=== PATIENT | female | born 1935 | race Caucasian/White ===

== ENCOUNTER → 2016-11-09 | Outpatient (CLI) | payer MEDICARE, OTHER ==
[2015-07-31 14:30] VITALS: BP 168/84
[~2016-11-09] MED LIST: DICL1TAB5 PO; DILT180C2 PO; GLIP5TAB10 PO; LISI40TA PO; METF-620 PO; OXYC1TAB7 PO
--- NOTE | 2016-11-09 14:20 | CARD ---
APPROVED REPORT EXAM: Two-dimensional and M-mode echocardiogram with Doppler and color Doppler. Other Information Quality : Average Rhythm : Atrial Fibrillation INDICATION Atrial Fibrillation 2D DIMENSIONS RVDd2.8 (2.9-3.5cm)Left Atrium(2D)3.8 (1.6-4.0cm) IVSd1.4 (0.7-1.1cm)Aortic Root(2D)2.9 (2.0-3.7cm) LVDd5.3 (3.9-5.9cm)LVOT Diameter2.0 (1.8-2.4cm) PWd1.4 (0.7-1.1cm)LVDs3.3 (2.5-4.0cm) FS (%) 37.6 %SV90.4 ml LVEF(%)64.2 (>50%) Aortic Valve AoV Peak Dom.173.6cm/sAoV VTI36.2cm AO Peak GR.12.0mmHgLVOT Peak Dom.101.1cm/s LVOT VTI 22.23cmAO Mean GR.7mmHg MILENA (VTI)1.80cm2 Mitral Valve MV DECEL [id number] E Mean Gr.2mmHg MV [id number] (PHT)4.00cm2 Pulmonary Valve PV Peak Fkwwxkjq81.8cm/sPV Peak Grad.4mmHg Tricuspid Valve TR P. [id number]/sRAP [id number] TR Peak Gr.[id number] LEFT VENTRICLE The left ventricle is normal size. There is mild concentric left ventricular hypertrophy. Left ventri dominique systolic function is normal. The Ejection Fraction is 60-65%. There is normal LV segmental wall m otion. Unable to assess diastolic function. There is no ventricular septal defect visualized. RIGHT VENTRICLE The right ventricle is normal size. The right ventricular systolic function is normal. ATRIA The left atrium size is normal. The right atrium size is normal. The interatrial septum is intact wit h no evidence for an atrial septal defect or patent foramen ovale as noted on 2-D or Doppler imaging. AORTIC VALVE The aortic valve is mildly sclerotic. The aortic valve is trileaflet. Doppler and Color Flow revealed trace aortic regurgitation. Calculated aortic valve area is 1.8 cm2 with maximum pressure gradient o f 12 mmHg and mean pressure gradient of 7 mmHg. MITRAL VALVE The mitral valve leaflets are thickened. There is no mitral valve stenosis. Doppler and Color Flow re vealed mild mitral regurgitation. TRICUSPID VALVE The tricuspid valve is normal in structure and function. Doppler and Color Flow revealed mild to mode rate tricuspid regurgitation. The PA pressure was estimated at 58 mmHg. There is no tricuspid valve s tenosis. PULMONIC VALVE The pulmonic valve is not well visualized. Doppler and Color Flow revealed mild pulmonic valvular reg urgitation. There is no pulmonic valvular stenosis. GREAT VESSELS The aortic root is normal in size. The IVC is dilated and collapses >50% with inspiration. PERICARDIAL EFFUSION There is no evidence of significant pericardial effusion. Critical Notification Critical Value: No <Conclusion> Left ventricle systolic function is normal. The Ejection Fraction is 60-65%. There is normal LV segmental wall motion. Trace aortic regurgitation. Doppler and Color Flow revealed mild mitral regurgitation. Mild to moderate tricuspid regurgitation. The PA pressure was estimated at 58 mmHg. There is no evidence of significant pericardial effusion.
== END | disposition home or self-care (01) ==
LOC: ECHO 13:16
PROVIDERS: ATTEND Internal Medicine Cardiovascular Disease
DX: I08.1 Rheumatic disorders of both mitral and tricuspid valves (principal); I48.2 Chronic atrial fibrillation
CPT/HCPCS: 93306

== ENCOUNTER 2019-03-05 14:31 | Inpatient (IN) | payer MEDICARE ==
[~2019-03-05] VITALS: Ht 165.1 cm; Wt 101.3 kg
[~2019-03-05 14:31] MED LIST changes: +ASPI-612 PO; +ATOR20TA58 PO; +GABA300C18 PO; +GLIM4TAB8 PO; +HYDR-2869 PO; +INSU100I11 SQ; +INSU100V8 SQ; +LISI-130 PO; -LISI40TA PO; -METF-620 PO; +METF10007 PO; +NYST60PO TP; +POLY17PO28 PO
[2019-03-05] MEDS ORDERED: ALBUTEROL SULFATE 2.5 MG/3 ML NEBU. NEB ONE (16:30)
--- NOTE | 2019-03-05 16:30 | PHYS DOC ---
Past Medical History Past Medical History: A-Fib, Arthritis, Diabetes-Type II, Hypertension, Stroke Past Surgical History: Appendectomy, Hysterectomy, Knee Replacement Additional Past Surgical Histo: bilat knees Alcohol Use: None Drug Use: None Adult General Chief Complaint Chief Complaint: SHORTNESS OF BREATH [facility] HPI Patient is a 83 year old female who presents with [cough and URI symptoms for the past week. Patient reports she had been discharged from the hospital recently, following hyperglycemia, had been put in Place for skilled care to get her blood sugars under control, and reports while she was there she she got a cold. States she has been out of the facility for the last week, and has been feeling ill for the same number of days. She hasn't contacted her primary care as an appointment tomorrow was told to start taking Mucinex, but reports he does not send be doing any good. She does reports she is having a productive cough, denies seeing any discoloration in her sputum. Denies any recent fever. Does reportedly have home health nurses in house to 3 times a week, and family was called and told to bring patient to the ER today because patient seemed to be wheezing for them. Patient reports her blood sugars have been under control, in the 130s since she has been on insulin.] Review of Systems Review of Systems Constitutional: Denies fever or chills [] Eyes: Denies change in visual acuity, redness, or eye pain [] HENT: Denies nasal congestion reports she does have a sore throat from coughing so much[] Respiratory: Reports cough, denies shortness of breath[] Cardiovascular: No additional information not addressed in HPI reports she has chronically had edema in her lower legs, however it is improved now compared to usual [] GI: Denies abdominal pain, nausea, vomiting, bloody stools or diarrhea [] : Denies dysuria or hematuria [] Musculoskeletal: Denies back pain or joint pain [] Integument: Denies rash or skin lesions [] Neurologic: Denies headache, focal weakness or sensory changes [] Endocrine: Denies polyuria or polydipsia [] All other systems were reviewed and found to be within normal limits, except as documented in this note. Current Medications Current Medications Current Medications Medications (Trade) Dose Ordered Sig/Mignon Start Time Stop Time Status Last Admin Dose Admin Albuterol Sulfate (Ventolin Neb Soln) 2.5 mg 1X ONCE 03/05/19 16:30 03/05/19 16:33 DC 03/05/19 17:20 2.5 MG Furosemide (Lasix) 40 mg 1X ONCE 03/05/19 18:15 03/05/19 18:20 DC Sodium Chloride 150 ml @ 50 mls/hr 1X ONCE 03/05/19 18:15 03/05/19 21:14 Allergies Allergies Allergies Coded Allergies Type Severity Reaction Last Updated Verified morphine Allergy Intermediate 07/31/15 Yes pear Allergy Intermediate 06/03/15 Yes codeine Adverse Reaction Intermediate dizzy 06/01/15 Yes Physical Exam Physical Exam Constitutional: Well developed, well nourished, no acute distress, non-toxic appearance. [] HENT: Normocephalic, atraumatic, bilateral external ears normal, oropharynx moist, no oral exudates, nose normal. Tonsils 0[] Eyes: PERRLA, EOMI, conjunctiva normal, no discharge. [] Neck: Normal range of motion, no tenderness, supple, no stridor. [] Cardiovascular:Heart rate regular rhythm, no murmur [] Lungs & Thorax: Bilateral breath sounds clear to auscultation no wheezing, no rales or rhonchi noted [] Abdomen: Bowel sounds normal, soft, no tenderness, no masses, no pulsatile masses. [] Skin: Warm, dry, no erythema, no rash. [] Back: No tenderness, no CVA tenderness. [] Extremities: No tenderness, no cyanosis, no clubbing, ROM intact, bilateral lower extremities with increased circumference, minimal pitting edema noted, ? 1+. [] Neurologic: Alert and oriented X 3, normal motor function, normal sensory function, no focal deficits noted. [] Psychologic: Affect normal, judgement normal, mood normal. [] Current Patient Data Vital Signs Vital Signs Date Time Temp Pulse Resp B/P (MAP) Pulse Ox O2 Delivery O2 Flow Rate FiO2 03/05/19 17:20 98 Room Air 03/05/19 15:30 97.6 77 16 150/78 (102) 97.6 Lab Values Laboratory Tests Test 03/05/19 16:05 03/05/19 16:20 03/05/19 16:45 03/05/19 17:34 Urine Collection Type Void Urine Color Yellow Urine Clarity Clear Urine pH 6.0 Urine Specific [place] 1.015 Urine Protein Negative mg/dL (NEG-TRACE) Urine Glucose (UA) 250 mg/dL (NEG) Urine Ketones (Stick) Negative mg/dL (NEG) Urine Blood Negative (NEG) Urine Nitrite Negative (NEG) Urine Bilirubin Negative (NEG) Urine Urobilinogen Dipstick 0.2 mg/dL (0.2 mg/dL) Urine Leukocyte Esterase Negative (NEG) Urine RBC Occ /HPF (0-2) Urine WBC Occ /HPF (0-4) Urine Squamous Epithelial Cells Few /LPF Urine Bacteria Few /HPF (0-FEW) White Blood Count 8.1 x10^3/uL (4.0-11.0) Red Blood Count 3.61 x10^6/uL (3.50-5.40) Hemoglobin 10.1 g/dL (12.0-15.5) L Hematocrit 30.0 % (36.0-47.0) L Mean Corpuscular Volume 83 fL (79-100) Mean Corpuscular Hemoglobin 28 pg (25-35) Mean Corpuscular Hemoglobin Concent 34 g/dL (31-37) Red Cell Distribution Width 14.7 % (11.5-14.5) H Platelet Count 183 x10^3/uL (140-400) Neutrophils (%) (Auto) 77 % (31-73) H Lymphocytes (%) (Auto) 14 % (24-48) L Monocytes (%) (Auto) 8 % (0-9) Eosinophils (%) (Auto) 0 % (0-3) Basophils (%) (Auto) 1 % (0-3) Neutrophils # (Auto) 6.2 x10^3/uL (1.8-7.7) Lymphocytes # (Auto) 1.1 x10^3/uL (1.0-4.8) Monocytes # (Auto) 0.6 x10^3/uL (0.0-1.1) Eosinophils # (Auto) 0.0 x10^3/uL (0.0-0.7) Basophils # (Auto) 0.1 x10^3/uL (0.0-0.2) Sodium Level 116 mmol/L (136-145) *L Potassium Level 3.6 mmol/L (3.5-5.1) Chloride Level 84 mmol/L (98-107) L Carbon Dioxide Level 25 mmol/L (21-32) Anion Gap 7 (6-14) Blood Urea Nitrogen 21 mg/dL (7-20) H Creatinine 0.7 mg/dL (0.6-1.0) Estimated GFR (Cockcroft-Gault) 79.5 BUN/Creatinine Ratio 30 (6-20) H Glucose Level 176 mg/dL (70-99) H Calcium Level 9.4 mg/dL (8.5-10.1) Total Bilirubin 0.4 mg/dL (0.2-1.0) Aspartate Amino Transferase (AST) 23 U/L (15-37) Alanine Aminotransferase (ALT) 13 U/L (14-59) L Alkaline Phosphatase 94 U/L (46-116) Troponin I Quantitative 0.039 ng/mL (0.000-0.055) Total Protein 7.3 g/dL (6.4-8.2) Albumin 3.1 g/dL (3.4-5.0) L Albumin/Globulin Ratio 0.7 (1.0-1.7) L Lactic Acid Level 1.2 mmol/L (0.4-2.0) Influenza Type A Antigen Negative (NEGATIVE) Influenza Type B Antigen Negative (NEGATIVE) Laboratory Tests 03/05/19 16:20 Laboratory Tests 03/05/19 16:20 EKG EKG [] Radiology/Procedures Radiology/Procedures FINDINGS: A frontal view of the chest is obtained. There is diffuse increased interstitial opacity. There is no consolidation, pleural effusion or pneumothorax. There is a prominent cardiac silhouette. There are calcified granulomas. IMPRESSION: Diffuse increased interstitial opacity due to interstitial infiltrate or chronic interstitial changes. There is no consolidation. Electronically signed by: Ronda Simpson MD (03/05/2019 4:59 PM) [id number] [] Course & Med Decision Making Course & Med Decision Making Pertinent Labs and Imaging studies reviewed. (See chart for details) [@1819 Reviewed results, with noted hyponatremia. Discussed admission with Dr العراقي. Agrees to inpatient admission @1805 Discussed with nephrology - Dr Carrillo - Recommends 150 ml 3% hypertonic saline and a one time dose of furosemide. ] Dragon Disclaimer Dragon Disclaimer This electronic medical record was generated, in whole or in part, using a voice recognition dictation system. Departure Departure Impression: Primary Impression: Hyponatremia Additional Impression: Fatigue Disposition: 09 ADMITTED INPATIENT Admitting Physician: TIFAFNY Condition: STABLE Referrals: BRANDON BAZZI MD (PCP) Problem Qualifiers Additional Impression: Fatigue Fatigue type: other Qualified Codes: R53.83 - Other fatigue CHUYITA SYLVESTER APRN Mar 05, 2019 16:30
[2019-03-05 16:37] LABS: BASO # 0.1 x10^3/uL (0.0-0.2); BASO % 1 % (0-3); EOS % 0 % (0-3); HEMOGLOBIN 10.1 g/dL (12.0-15.5); LYMPH # 1.1 x10^3/uL (1.0-4.8); LYMPH % 14 % (24-48); MEAN CORPUSCULAR HEMOGLOBIN 28 pg (25-35); MEAN CORPUSCULAR HGB CONC 34 g/dL (31-37); MEAN CORPUSCULAR VOLUME 83 fL (79-100); MONO # 0.6 x10^3/uL (0.0-1.1); MONO % 8 % (0-9); NEUT # 6.2 x10^3/uL (1.8-7.7); NEUT % 77 % (31-73); PLATELET COUNT 183 x10^3/uL (140-400); RED BLOOD COUNT 3.61 x10^6/uL (3.50-5.40); RED CELL DISTRIBUTION WIDTH 14.7 % (11.5-14.5); WHITE BLOOD COUNT 8.1 x10^3/uL (4.0-11.0)
[2019-03-05 16:41] LABS: BILIRUBIN,URINE NEGATIVE (NEG); CLARITY,URINE CLEAR; COLOR,URINE YELLOW; NITRITE,URINE NEGATIVE (NEG); PROTEIN,URINE NEGATIVE (NEG-TRACE); UROBILINOGEN,URINE 0.2 mg/dL (0.2 mg/dL)
[2019-03-05 16:46] LABS: RBC,URINE OCC /HPF (0-2)
[2019-03-05 16:47] LABS: BACTERIA,URINE FEW /HPF (0-FEW); SQUAMOUS EPITHELIAL CELL,UR FEW /LPF; WBC,URINE OCC /HPF (0-4)
[2019-03-05 17:01] LABS: ALBUMIN 3.1 g/dL (3.4-5.0); ALBUMIN/GLOBULIN RATIO 0.7 (1.0-1.7); CALCIUM 9.4 mg/dL (8.5-10.1); CREATININE 0.7 mg/dL (0.6-1.0); GFR 79.5; POTASSIUM 3.6 mmol/L (3.5-5.1); TOTAL BILIRUBIN 0.4 mg/dL (0.2-1.0); TOTAL PROTEIN 7.3 g/dL (6.4-8.2)
--- NOTE | 2019-03-05 17:02 | RAD ---
EXAM: Chest, single view. HISTORY: Shortness of air. Cough. COMPARISON: None. FINDINGS: A frontal view of the chest is obtained. There is diffuse increased interstitial opacity. There is no consolidation, pleural effusion or pneumothorax. There is a prominent cardiac silhouette. There are calcified granulomas. IMPRESSION: Diffuse increased interstitial opacity due to interstitial infiltrate or chronic interstitial changes. There is no consolidation. Electronically signed by: Ronda Simpson MD (03/05/2019 4:59 PM) [place] [id number]
[2019-03-05 18:13] LABS: INFLUENZA A PATIENT NEGATIVE (NEGATIVE); INFLUENZA B PATIENT NEGATIVE (NEGATIVE)
[2019-03-05] MEDS ORDERED: SODIUM CHLORIDE 3 % 150 ML IV ONE (18:15)
[2019-03-05] MEDS ORDERED: FUROSEMIDE 40 MG/4 ML VIAL. IVP ONE (18:15)
[2019-03-05 22:30] VITALS: BP 156/54
--- NOTE | 2019-03-05 22:30 | NUR ---
Pt was admitted to the unit from ER with c/o general weakness and hyponatremia. Pt is A/Ox4, on RA, afib on telemetry. Pt c/o persistent dry cough, recently d/c from [facility], at [facility] prior to that. Pt has no c/o pain, with with SBA and walker. Pt is a poor historian, h&p completed, call light within reach, bed in low/locked position, VSS, will continue to monitor for status changes.
[2019-03-06] VITALS (14 sets, daily range): BP systolic 125–198; BP diastolic 60–92
[2019-03-06] MEDS: guaiFENesin DM 200MG/20MG 10 ML SYRUP PO PRN ×4 (04:17→22:39)
--- NOTE | 2019-03-06 09:59 | PDOC1 ---
History and Physical Date of Admission Date of Admission DATE: 03/06/19 TIME: 09:57 Identification/Chief Complaint Chief Complaint seen in er with hyponatremia 83 year old female who presents with [cough and URI symptoms for the past week. Patient reports she had been discharged from the hospital recently, following hyperglycemia, had been put in Place for skilled care to get her blood sugars under control, and reports while she was there she she got a cold. has been out of the facility for the last week, and has been feeling ill for the same number of days. She hasn't contacted her primary care as an appointment was told to start taking Mucinex, admit sodium 116, now 121 Past Medical History Past Medical History Past Medical History Past Medical History Past Medical History: A-Fib, Arthritis, Diabetes-Type II, Hypertension, Stroke Past Surgical History: Appendectomy, Hysterectomy, Knee Replacement Additional Past Surgical Histo: bilat knees Alcohol Use: None Drug Use: None FHX OBESITY Past Medical History Cardiovascular: AFIB, HTN Pulmonary: No pertinent hx CENTRAL NERVOUS SYSTEM: CVA GI: No pertinent hx Heme/Onc: Cancer Hepatobiliary: No pertinent hx Psych: No pertinent hx Musculoskeletal: Osteoarthritis Rheumatologic: No pertinent hx Infectious disease: No pertinent hx Renal/: No pertinent hx Endocrine: Diabetes Past Surgical History Past Surgical History: Appendectomy, Cataract Removal, Total knee replacement, Hysterectomy Family History Family History: Hypertension Social History ALCOHOL: none Drugs: None Lives: with Family Cardiovascular: AFIB, HTN Pulmonary: No pertinent hx CENTRAL NERVOUS SYSTEM: CVA GI: No pertinent hx Heme/Onc: Cancer Hepatobiliary: No pertinent hx Psych: No pertinent hx Musculoskeletal: Osteoarthritis Rheumatologic: No pertinent hx Infectious disease: No pertinent hx Renal/: No pertinent hx Endocrine: Diabetes Past Surgical History Past Surgical History: Appendectomy, Cataract Removal, Total knee replacement, Hysterectomy Family History Family History: Hypertension Social History Smoke: No ALCOHOL: none Drugs: None Current Problem List Problem List Problems Medical Problems: (1) Fatigue Status: Acute (2) Hyponatremia Status: Acute Current Medications Current Medications Current Medications Albuterol Sulfate (Ventolin Neb Soln) 2.5 mg 1X ONCE NEB Last administered on 03/05/19at 17:20; Start 03/05/19 at 16:30; Stop 03/05/19 at 16:33; Status DC Sodium Chloride 150 ml @ 50 mls/hr 1X ONCE IV Last administered on 03/05/19at 19:18; Start 03/05/19 at 18:15; Stop 03/05/19 at 21:14; Status DC Furosemide (Lasix) 40 mg 1X ONCE IVP Last administered on 03/05/19at 18:39; Start 03/05/19 at 18:15; Stop 03/05/19 at 18:20; Status DC Guaifenesin (Robitussin Dm) 10 ml PRN Q4HRS PRN PO COUGH Last administered on 03/06/19at 04:17; Start 03/06/19 at 04:15 Active Scripts Active Polyethylene Glycol 3350 17 Gm Powd.pack 17 Gm PO DAILY 30 Days Nystop (Nystatin) 60 Gm Powder 1 Ayan TP BID 14 Days Humalog (Insulin Lispro) 100 Unit/1 Ml Insuln.pen 0 Units SQ TIDWMEALS 30 Days Lantus (Insulin Glargine,Hum.rec.anlog) 100 Unit/1 Ml Vial 6 Unit SQ QHS 30 Days Aspirin Ec (Aspirin) 81 Mg Tablet.dr 81 Mg PO DAILYWBKFT 30 Days Atorvastatin Calcium 20 Mg Tablet 20 Mg PO QHS 30 Days Oxycodone-Acetaminophen 5-325 (Oxycodone Hcl/Acetaminophen) 1 Each Tablet 1 Tab PO PRN Q6HRS PRN Reported Gabapentin (Gabapentin) 300 Mg Capsule 300 Mg PO HS PRN Take extra dose 2 hours after first dose if neuropathy persists Gabapentin (Gabapentin) 300 Mg Capsule 300 Mg PO HS Glimepiride 4 Mg Tablet 1 Tab PO BID Lisinopril 40 Mg Tablet 40 Mg PO DAILY Allergies Allergies: Coded Allergies: morphine (Verified Allergy, Intermediate, 07/31/15) pear (Verified Allergy, Intermediate, 06/03/15) codeine (Verified Adverse Reaction, Intermediate, dizzy, 06/01/15) MORPHINE OK ROS Review of System Review of Systems Review of Systems Constitutional: Denies fever or chills [] Eyes: Denies change in visual acuity, redness, or eye pain [] HENT: Denies nasal congestion reports she does have a sore throat from coughing so much[] Respiratory: Reports cough, denies shortness of breath[] Cardiovascular: No additional information not addressed in HPI reports she has chronically had edema in her lower legs, however it is improved now compared to usual [] GI: Denies abdominal pain, nausea, vomiting, bloody stools or diarrhea [] : Denies dysuria or hematuria [] Musculoskeletal: Denies back pain or joint pain [] Integument: Denies rash or skin lesions [] Neurologic: Denies headache, focal weakness or sensory changes [] Endocrine: Denies polyuria or polydipsia [] 14 pt systems were reviewed and found to be within normal limits, except as documented Physical Exam Physical Exam Physical Exam Physical Exam Constitutional: Well developed, well nourished, no acute distress, non-toxic appearance. [] HENT: Normocephalic, atraumatic, bilateral external ears normal, oropharynx moist, no oral exudates, nose normal. Tonsils 0[] Eyes: PERRLA, EOMI, conjunctiva normal, no discharge. [] Neck: Normal range of motion, no tenderness, supple, no stridor. [] Cardiovascular:Heart rate regular rhythm, no murmur [] Lungs & Thorax: Bilateral breath sounds clear to auscultation no wheezing, no rales or rhonchi noted [] Abdomen: Bowel sounds normal, soft, no tenderness, no masses, no pulsatile masses. [] Skin: Warm, dry, no erythema, no rash. [] Back: No tenderness, no CVA tenderness. [] Extremities: No tenderness, no cyanosis, no clubbing, ROM intact, bilateral lower extremities with increased circumference, minimal pitting edema noted, ? 1+. [] Neurologic: Alert and oriented X 3, normal motor function, normal sensory function, no focal deficits noted. [] Psychologic: Affect normal, judgement normal, mood normal. [] General: Alert, Oriented X3, Cooperative, No acute distress HEENT: Atraumatic Breasts: Not examined Abdomen: Normal bowel sounds, Soft Rectal Exam: not examined PELVIC: Examination not indicated Extremities: No clubbing, No cyanosis Neuro: Normal speech, Cranial nerves 3-12 NL Psych/Mental Status: Mental status NL, Mood NL Vitals Vitals Vital Signs Date Time Temp Pulse Resp B/P (MAP) Pulse Ox O2 Delivery O2 Flow Rate FiO2 03/06/19 07:43 Room Air 03/06/19 06:49 98.1 66 20 165/72 (103) 94 98.1 Labs Labs Laboratory Tests Test 1/7/20 16:05 03/05/19 16:20 03/05/19 16:45 03/05/19 17:34 Urine Collection Type Void Urine Color Yellow Urine Clarity Clear Urine pH 6.0 Urine Specific [place] 1.015 Urine Protein Negative mg/dL (NEG-TRACE) Urine Glucose (UA) 250 mg/dL (NEG) Urine Ketones (Stick) Negative mg/dL (NEG) Urine Blood Negative (NEG) Urine Nitrite Negative (NEG) Urine Bilirubin Negative (NEG) Urine Urobilinogen Dipstick 0.2 mg/dL (0.2 mg/dL) Urine Leukocyte Esterase Negative (NEG) Urine RBC Occ /HPF (0-2) Urine WBC Occ /HPF (0-4) Urine Squamous Epithelial Cells Few /LPF Urine Bacteria Few /HPF (0-FEW) White Blood Count 8.1 x10^3/uL (4.0-11.0) Red Blood Count 3.61 x10^6/uL (3.50-5.40) Hemoglobin 10.1 g/dL (12.0-15.5) Hematocrit 30.0 % (36.0-47.0) Mean Corpuscular Volume 83 fL (79-100) Mean Corpuscular Hemoglobin 28 pg (25-35) Mean Corpuscular Hemoglobin Concent 34 g/dL (31-37) Red Cell Distribution Width 14.7 % (11.5-14.5) Platelet Count 183 x10^3/uL (140-400) Neutrophils (%) (Auto) 77 % (31-73) Lymphocytes (%) (Auto) 14 % (24-48) Monocytes (%) (Auto) 8 % (0-9) Eosinophils (%) (Auto) 0 % (0-3) Basophils (%) (Auto) 1 % (0-3) Neutrophils # (Auto) 6.2 x10^3/uL (1.8-7.7) Lymphocytes # (Auto) 1.1 x10^3/uL (1.0-4.8) Monocytes # (Auto) 0.6 x10^3/uL (0.0-1.1) Eosinophils # (Auto) 0.0 x10^3/uL (0.0-0.7) Basophils # (Auto) 0.1 x10^3/uL (0.0-0.2) Sodium Level 116 mmol/L (136-145) Potassium Level 3.6 mmol/L (3.5-5.1) Chloride Level 84 mmol/L (98-107) Carbon Dioxide Level 25 mmol/L (21-32) Anion Gap 7 (6-14) Blood Urea Nitrogen 21 mg/dL (7-20) Creatinine 0.7 mg/dL (0.6-1.0) Estimated GFR (Cockcroft-Gault) 79.5 BUN/Creatinine Ratio 30 (6-20) Glucose Level 176 mg/dL (70-99) Calcium Level 9.4 mg/dL (8.5-10.1) Total Bilirubin 0.4 mg/dL (0.2-1.0) Aspartate Amino Transf (AST/SGOT) 23 U/L (15-37) Alanine Aminotransferase (ALT/SGPT) 13 U/L (14-59) Alkaline Phosphatase 94 U/L (46-116) Troponin I Quantitative 0.039 ng/mL (0.000-0.055) Total Protein 7.3 g/dL (6.4-8.2) Albumin 3.1 g/dL (3.4-5.0) Albumin/Globulin Ratio 0.7 (1.0-1.7) Lactic Acid Level 1.2 mmol/L (0.4-2.0) Influenza Type A Antigen Negative (NEGATIVE) Influenza Type B Antigen Negative (NEGATIVE) Test 03/06/19 06:52 Glucose (Fingerstick) 180 mg/dL (70-99) Laboratory Tests Test 03/05/19 16:05 03/05/19 16:20 03/05/19 16:45 03/05/19 17:34 Urine Collection Type Void Urine Color Yellow Urine Clarity Clear Urine pH 6.0 Urine Specific [place] 1.015 Urine Protein Negative mg/dL (NEG-TRACE) Urine Glucose (UA) 250 mg/dL (NEG) Urine Ketones (Stick) Negative mg/dL (NEG) Urine Blood Negative (NEG) Urine Nitrite Negative (NEG) Urine Bilirubin Negative (NEG) Urine Urobilinogen Dipstick 0.2 mg/dL (0.2 mg/dL) Urine Leukocyte Esterase Negative (NEG) Urine RBC Occ /HPF (0-2) Urine WBC Occ /HPF (0-4) Urine Squamous Epithelial Cells Few /LPF Urine Bacteria Few /HPF (0-FEW) White Blood Count 8.1 x10^3/uL (4.0-11.0) Red Blood Count 3.61 x10^6/uL (3.50-5.40) Hemoglobin 10.1 g/dL (12.0-15.5) Hematocrit 30.0 % (36.0-47.0) Mean Corpuscular Volume 83 fL (79-100) Mean Corpuscular Hemoglobin 28 pg (25-35) Mean Corpuscular Hemoglobin Concent 34 g/dL (31-37) Red Cell Distribution Width 14.7 % (11.5-14.5) Platelet Count 183 x10^3/uL (140-400) Neutrophils (%) (Auto) 77 % (31-73) Lymphocytes (%) (Auto) 14 % (24-48) Monocytes (%) (Auto) 8 % (0-9) Eosinophils (%) (Auto) 0 % (0-3) Basophils (%) (Auto) 1 % (0-3) Neutrophils # (Auto) 6.2 x10^3/uL (1.8-7.7) Lymphocytes # (Auto) 1.1 x10^3/uL (1.0-4.8) Monocytes # (Auto) 0.6 x10^3/uL (0.0-1.1) Eosinophils # (Auto) 0.0 x10^3/uL (0.0-0.7) Basophils # (Auto) 0.1 x10^3/uL (0.0-0.2) Sodium Level 116 mmol/L (136-145) Potassium Level 3.6 mmol/L (3.5-5.1) Chloride Level 84 mmol/L (98-107) Carbon Dioxide Level 25 mmol/L (21-32) Anion Gap 7 (6-14) Blood Urea Nitrogen 21 mg/dL (7-20) Creatinine 0.7 mg/dL (0.6-1.0) Estimated GFR (Cockcroft-Gault) 79.5 BUN/Creatinine Ratio 30 (6-20) Glucose Level 176 mg/dL (70-99) Calcium Level 9.4 mg/dL (8.5-10.1) Total Bilirubin 0.4 mg/dL (0.2-1.0) Aspartate Amino Transf (AST/SGOT) 23 U/L (15-37) Alanine Aminotransferase (ALT/SGPT) 13 U/L (14-59) Alkaline Phosphatase 94 U/L (46-116) Troponin I Quantitative 0.039 ng/mL (0.000-0.055) Total Protein 7.3 g/dL (6.4-8.2) Albumin 3.1 g/dL (3.4-5.0) Albumin/Globulin Ratio 0.7 (1.0-1.7) Lactic Acid Level 1.2 mmol/L (0.4-2.0) Influenza Type A Antigen Negative (NEGATIVE) Influenza Type B Antigen Negative (NEGATIVE) Test 03/06/19 06:52 Glucose (Fingerstick) 180 mg/dL (70-99) Images Images RIGHT VENTRICLE The right ventricle is normal size. The right ventricular systolic function is normal. ATRIA The left atrium size is normal. The right atrium size is normal. The interatrial septum is intact with no evidence for an atrial septal defect or patent foramen ovale as noted on 2-D or Doppler imaging. AORTIC VALVE The aortic valve is mildly thickened but opens well. Doppler and Color Flow revealed mild aortic regurgitation. There is no significant aortic valvular stenosis. MITRAL VALVE The mitral valve is calcified but opens well. Mitral annular calcification is mild. There is no evidence of mitral valve prolapse. There is no mitral valve stenosis. Doppler and Color-flow revealed mild mitral regurgitation. TRICUSPID VALVE The tricuspid valve is normal in structure and function. Doppler and Color Flow revealed mild tricuspid regurgitation. There is moderate pulmonary hypertension. The PA pressure was estimated at 52 mmHg. There is no tricuspid valve stenosis. PULMONIC VALVE The pulmonic valve is not well visualized. Doppler and Color Flow revealed mild pulmonic valvular regurgitation. There is no pulmonic valvular stenosis. GREAT VESSELS The aortic root is normal in size. The ascending aorta is moderately dilated at 4.0 cm. The IVC is dilated and collapses >50% with inspiration. PERICARDIAL EFFUSION There is no evidence of significant pericardial effusion. Critical Notification Critical Value: No <Conclusion> The left ventricular systolic function is normal. The Ejection Fraction is 55-60%. There is normal LV segmental wall motion. Mild aortic regurgitation. Mild mitral regurgitation. Mild tricuspid regurgitation. The PA pressure was estimated at 52 mmHg. There is no evidence of significant pericardial effusion. Signed by : Jean Pierre Barry, Electronically Approved : 02/07/2019 11:02:43 EXAM: Chest, single view. HISTORY: Shortness of air. Cough. COMPARISON: None. FINDINGS: A frontal view of the chest is obtained. There is diffuse increased interstitial opacity. There is no consolidation, pleural effusion or pneumothorax. There is a prominent cardiac silhouette. There are calcified granulomas. IMPRESSION: Diffuse increased interstitial opacity due to interstitial infiltrate or chronic interstitial changes. There is no consolidation. Electronically signed by: Ronda Simpson MD (03/05/2019 4:59 PM) [place] [id number] DICTATED and SIGNED BY: RONDA SIMPSON MD DATE: 03/05/19 7323 VTE Prophylaxis Ordered VTE Prophylaxis Devices: No VTE Pharmacological Prophylaxi: Contraindicated Assessment/Plan Assessment/Plan Impression: Hyponatremia, severe, hyponatremia has been reported with gabapentin therapy diff dx SIAHD, Hypervolemia, chf, hepatic disease, renal disease morbid obesity cough ? 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 2016 a-fib HX DIABETES HYPERTENSION Mild to moderate tricuspid regurgitation. recent echo , PA pressure was estimated at 52 mmHg. c/w mod-severe pulmonary hypertension hypokalemia ADMITTED icu bed hypertonic NS Nephrology consult hold gabapentin and narcotics serum and urine osmolality frequent lytes hold lisinopril cardiology consult replete k po k at 1700 03/06 34 min cc time KARYN NORWOOD MD Mar 06, 2019 09:59
[2019-03-06] MEDS: NYSTATIN TOPICAL POWDER 15GM BOTTLE. TP SCH ×2 (10:00→23:30)
[2019-03-06] MEDS ORDERED: LISINOPRIL 20 MG TABLET PO SCH (10:00)
[2019-03-06 10:02] LABS: BASO % 1 % (0-3); EOS % 0 % (0-3); HEMATOCRIT 27.6 % (36.0-47.0); HEMOGLOBIN 9.2 g/dL (12.0-15.5); LYMPH # 1.1 x10^3/uL (1.0-4.8); LYMPH % 20 % (24-48); MEAN CORPUSCULAR HEMOGLOBIN 28 pg (25-35); MEAN CORPUSCULAR HGB CONC 33 g/dL (31-37); MEAN CORPUSCULAR VOLUME 83 fL (79-100); MONO # 0.7 x10^3/uL (0.0-1.1); MONO % 12 % (0-9); NEUT # 3.9 x10^3/uL (1.8-7.7); NEUT % 68 % (31-73); PLATELET COUNT 176 x10^3/uL (140-400); RED BLOOD COUNT 3.34 x10^6/uL (3.50-5.40); RED CELL DISTRIBUTION WIDTH 14.4 % (11.5-14.5); WHITE BLOOD COUNT 5.8 x10^3/uL (4.0-11.0)
[2019-03-06] MEDS ORDERED: ASPIRIN ENTERIC COATED 81 MG TABLET.DR. PO ONE (10:14)
[2019-03-06 10:16] LABS: CALCIUM 8.8 mg/dL (8.5-10.1); CREATININE 0.6 mg/dL (0.6-1.0)
[2019-03-06] MEDS: POLYETHYLENE GLYCOL 3350 17 GM PACKET. PO SCH (10:16)
[2019-03-06] MEDS: ASPIRIN ENTERIC COATED 81 MG TABLET.DR. PO SCH (10:16)
[2019-03-06 10:27] LABS: POTASSIUM 2.9 mmol/L (3.5-5.1)
[2019-03-06] MEDS ORDERED: POTASSIUM CHLORIDE 20 MEQ TABLET.ER. PO ONE ×2 (10:45→14:00)
[2019-03-06] MEDS ORDERED: SODIUM CHLORIDE 3 % 250 ML IV ONE (11:45)
[2019-03-06] MEDS ORDERED: FUROSEMIDE 40 MG/4 ML VIAL. IVP ONE (11:45)
[2019-03-06] MEDS: INSULIN LISPRO 300 UNITS/3 ML VIAL. SQ SCH ×2 (12:00→17:00)
--- NOTE | 2019-03-06 13:35 | NUR ---
Daughter lisa was called to inform her that the patient has transferred to the ICU. All questions were answered.
--- NOTE | 2019-03-06 13:50 | PDOC2 ---
CONSULT Date of Consult Date of Consult DATE: 03/06/19 TIME: 13:44 Reason for Consult Reason for Consult: LOW NA Referring Physician Referring Physician: CUCO Identification/Chief Complaint Chief Complaint CONFUSION AND COUGH Source Source: Chart review History of Present Illness Reason for Visit: THIS IS AN 83 YR OLD WITH COUGH AND URI SYMPTOMS FOR ABOUT A WEEK. SHE IS A VERY POOR HISTORIAN AND PROB HAS UNDERLYING DEMENTIA. HAS SOME CONFUSION. HAS NOTABLE LE EDEMA. LABS NOTABLE FOR HYPOKALEMIA AND VERY LOW NA OF 116. NOT ON ANY DIURETICS BUT ON AN JOSE RAUL-I AT HOME. UA IS WNL Past Medical History Cardiovascular: AFIB, HTN Pulmonary: No pertinent hx CENTRAL NERVOUS SYSTEM: CVA GI: No pertinent hx Heme/Onc: Cancer Hepatobiliary: No pertinent hx Psych: No pertinent hx Musculoskeletal: Osteoarthritis Rheumatologic: No pertinent hx Infectious disease: No pertinent hx Renal/: No pertinent hx Endocrine: Diabetes Past Surgical History Past Surgical History: Appendectomy, Cataract Removal, Total knee replacement, Hysterectomy Family History Family History: Hypertension Social History ALCOHOL: none Drugs: None Lives: with Family Current Problem List Problem List Problems Medical Problems: (1) Fatigue Status: Acute (2) Hyponatremia Status: Acute Current Medications Current Medications Current Medications Albuterol Sulfate (Ventolin Neb Soln) 2.5 mg 1X ONCE NEB Last administered on 03/05/19at 17:20; Start 03/05/19 at 16:30; Stop 03/05/19 at 16:33; Status DC Sodium Chloride 150 ml @ 50 mls/hr 1X ONCE IV Last administered on 03/05/19at 19:18; Start 03/05/19 at 18:15; Stop 03/05/19 at 21:14; Status DC Furosemide (Lasix) 40 mg 1X ONCE IVP Last administered on 03/05/19at 18:39; Start 03/05/19 at 18:15; Stop 03/05/19 at 18:20; Status DC Guaifenesin (Robitussin Dm) 10 ml PRN Q4HRS PRN PO COUGH Last administered on 03/06/19at 10:16; Start 03/06/19 at 04:15 Aspirin (Ecotrin) 81 mg DAILYWBKFT PO Last administered on 03/06/19at 10:16; Start 03/06/19 at 12:00 Atorvastatin Calcium (Lipitor) 20 mg QHS PO ; Start 03/06/19 at 21:00 Insulin Glargine (Lantus Syringe) 6 unit QHS SQ ; Start 03/06/19 at 21:00 Insulin Human Lispro (HumaLOG) TIDWMEALS SQ ; Start 03/06/19 at 12:00 Lisinopril (Prinivil) 40 mg DAILY PO Last administered on 03/06/19at 10:16; Start 03/06/19 at 10:00 Nystatin (Nystop) 1 ayan BID TP ; Start 03/06/19 at 10:00 Polyethylene Glycol (miraLAX PACKET) 17 gm DAILY PO Last administered on 03/06/19at 10:16; Start 03/06/19 at 11:00 Aspirin (Ecotrin) 81 mg STK-MED ONCE PO ; Start 03/06/19 at 10:14; Stop 03/06/19 at 10:15; Status DC Potassium Chloride (Klor-Con) 40 meq 1X ONCE PO Last administered on 03/06/19at 10:46; Start 03/06/19 at 10:45; Stop 03/06/19 at 10:46; Status DC Potassium Chloride (Klor-Con) 10 meq 1X ONCE PO ; Start 03/06/19 at 14:00; Stop 03/06/19 at 11:42; Status DC Hydralazine HCl (Apresoline Inj) 10 mg PRN Q4HRS PRN IVP ELEVATED BP, SEE COMMENTS; Start 03/06/19 at 10:45 Sodium Chloride 250 ml @ 25 mls/hr 1X ONCE IV Last administered on 03/06/19at 13:27; Start 03/06/19 at 11:45; Stop 03/06/19 at 21:44 Furosemide (Lasix) 40 mg 1X ONCE IVP Last administered on 03/06/19at 12:06; Start 03/06/19 at 11:45; Stop 03/06/19 at 11:46; Status DC Potassium Chloride (Klor-Con) 40 meq 1X ONCE PO ; Start 03/06/19 at 14:00; Stop 03/06/19 at 14:01 Active Scripts Active Polyethylene Glycol 3350 17 Gm Powd.pack 17 Gm PO DAILY 30 Days Nystop (Nystatin) 60 Gm Powder 1 Ayan TP BID 14 Days Humalog (Insulin Lispro) 100 Unit/1 Ml Insuln.pen 0 Units SQ TIDWMEALS 30 Days Lantus (Insulin Glargine,Hum.rec.anlog) 100 Unit/1 Ml Vial 6 Unit SQ QHS 30 Days Aspirin Ec (Aspirin) 81 Mg Tablet.dr 81 Mg PO DAILYWBKFT 30 Days Atorvastatin Calcium 20 Mg Tablet 20 Mg PO QHS 30 Days Oxycodone-Acetaminophen 5-325 (Oxycodone Hcl/Acetaminophen) 1 Each Tablet 1 Tab PO PRN Q6HRS PRN Reported Gabapentin (Gabapentin) 300 Mg Capsule 300 Mg PO HS PRN Take extra dose 2 hours after first dose if neuropathy persists Gabapentin (Gabapentin) 300 Mg Capsule 300 Mg PO HS Glimepiride 4 Mg Tablet 1 Tab PO BID Lisinopril 40 Mg Tablet 40 Mg PO DAILY Allergies Allergies: Coded Allergies: morphine (Verified Allergy, Intermediate, 07/31/15) pear (Verified Allergy, Intermediate, 06/03/15) codeine (Verified Adverse Reaction, Intermediate, dizzy, 06/01/15) MORPHINE OK ROS Review of System IN HPI, OTHERWISE NOT VERY RELIABLE Physical Exam General: Alert, Cooperative, No acute distress HEENT: Atraumatic, PERRLA, EOMI Lungs: Other (DECREASED AT BASES) Heart: Regular rate Abdomen: Normal bowel sounds, Soft, No tenderness Extremities: No clubbing Skin: No breakdown Neuro: Normal speech Psych/Mental Status: Mood NL MUSCULOSKELETAL: No deformity, Other (2-3+ LE EDEMA) Vitals VITALS Vital Signs Date Time Temp Pulse Resp B/P (MAP) Pulse Ox O2 Delivery O2 Flow Rate FiO2 03/06/19 10:16 89 198/81 03/06/19 10:10 98.2 20 93 Room Air 98.2 Labs Labs Laboratory Tests Test 03/05/19 16:05 03/05/19 16:20 03/05/19 16:45 03/05/19 17:34 Urine Collection Type Void Urine Color Yellow Urine Clarity Clear Urine pH 6.0 Urine Specific [place] 1.015 Urine Protein Negative mg/dL (NEG-TRACE) Urine Glucose (UA) 250 mg/dL (NEG) Urine Ketones (Stick) Negative mg/dL (NEG) Urine Blood Negative (NEG) Urine Nitrite Negative (NEG) Urine Bilirubin Negative (NEG) Urine Urobilinogen Dipstick 0.2 mg/dL (0.2 mg/dL) Urine Leukocyte Esterase Negative (NEG) Urine RBC Occ /HPF (0-2) Urine WBC Occ /HPF (0-4) Urine Squamous Epithelial Cells Few /LPF Urine Bacteria Few /HPF (0-FEW) White Blood Count 8.1 x10^3/uL (4.0-11.0) Red Blood Count 3.61 x10^6/uL (3.50-5.40) Hemoglobin 10.1 g/dL (12.0-15.5) Hematocrit 30.0 % (36.0-47.0) Mean Corpuscular Volume 83 fL (79-100) Mean Corpuscular Hemoglobin 28 pg (25-35) Mean Corpuscular Hemoglobin Concent 34 g/dL (31-37) Red Cell Distribution Width 14.7 % (11.5-14.5) Platelet Count 183 x10^3/uL (140-400) Neutrophils (%) (Auto) 77 % (31-73) Lymphocytes (%) (Auto) 14 % (24-48) Monocytes (%) (Auto) 8 % (0-9) Eosinophils (%) (Auto) 0 % (0-3) Basophils (%) (Auto) 1 % (0-3) Neutrophils # (Auto) 6.2 x10^3/uL (1.8-7.7) Lymphocytes # (Auto) 1.1 x10^3/uL (1.0-4.8) Monocytes # (Auto) 0.6 x10^3/uL (0.0-1.1) Eosinophils # (Auto) 0.0 x10^3/uL (0.0-0.7) Basophils # (Auto) 0.1 x10^3/uL (0.0-0.2) Sodium Level 116 mmol/L (136-145) Potassium Level 3.6 mmol/L (3.5-5.1) Chloride Level 84 mmol/L (98-107) Carbon Dioxide Level 25 mmol/L (21-32) Anion Gap 7 (6-14) Blood Urea Nitrogen 21 mg/dL (7-20) Creatinine 0.7 mg/dL (0.6-1.0) Estimated GFR (Cockcroft-Gault) 79.5 BUN/Creatinine Ratio 30 (6-20) Glucose Level 176 mg/dL (70-99) Calcium Level 9.4 mg/dL (8.5-10.1) Total Bilirubin 0.4 mg/dL (0.2-1.0) Aspartate Amino Transf (AST/SGOT) 23 U/L (15-37) Alanine Aminotransferase (ALT/SGPT) 13 U/L (14-59) Alkaline Phosphatase 94 U/L (46-116) Troponin I Quantitative 0.039 ng/mL (0.000-0.055) Total Protein 7.3 g/dL (6.4-8.2) Albumin 3.1 g/dL (3.4-5.0) Albumin/Globulin Ratio 0.7 (1.0-1.7) Lactic Acid Level 1.2 mmol/L (0.4-2.0) Influenza Type A Antigen Negative (NEGATIVE) Influenza Type B Antigen Negative (NEGATIVE) Test 03/06/19 06:52 03/06/19 09:45 03/06/19 11:37 Glucose (Fingerstick) 180 mg/dL (70-99) 220 mg/dL (70-99) White Blood Count 5.8 x10^3/uL (4.0-11.0) Red Blood Count 3.34 x10^6/uL (3.50-5.40) Hemoglobin 9.2 g/dL (12.0-15.5) Hematocrit 27.6 % (36.0-47.0) Mean Corpuscular Volume 83 fL (79-100) Mean Corpuscular Hemoglobin 28 pg (25-35) Mean Corpuscular Hemoglobin Concent 33 g/dL (31-37) Red Cell Distribution Width 14.4 % (11.5-14.5) Platelet Count 176 x10^3/uL (140-400) Neutrophils (%) (Auto) 68 % (31-73) Lymphocytes (%) (Auto) 20 % (24-48) Monocytes (%) (Auto) 12 % (0-9) Eosinophils (%) (Auto) 0 % (0-3) Basophils (%) (Auto) 1 % (0-3) Neutrophils # (Auto) 3.9 x10^3/uL (1.8-7.7) Lymphocytes # (Auto) 1.1 x10^3/uL (1.0-4.8) Monocytes # (Auto) 0.7 x10^3/uL (0.0-1.1) Eosinophils # (Auto) 0.0 x10^3/uL (0.0-0.7) Basophils # (Auto) 0.0 x10^3/uL (0.0-0.2) Sodium Level 121 mmol/L (136-145) Potassium Level 2.9 mmol/L (3.5-5.1) Chloride Level 85 mmol/L (98-107) Carbon Dioxide Level 28 mmol/L (21-32) Anion Gap 8 (6-14) Blood Urea Nitrogen 18 mg/dL (7-20) Creatinine 0.6 mg/dL (0.6-1.0) Estimated GFR (Cockcroft-Gault) 95.0 Glucose Level 199 mg/dL (70-99) Calcium Level 8.8 mg/dL (8.5-10.1) Laboratory Tests Test 03/05/19 16:05 03/05/19 16:20 03/05/19 16:45 03/05/19 17:34 Urine Collection Type Void Urine Color Yellow Urine Clarity Clear Urine pH 6.0 Urine Specific [place] 1.015 Urine Protein Negative mg/dL (NEG-TRACE) Urine Glucose (UA) 250 mg/dL (NEG) Urine Ketones (Stick) Negative mg/dL (NEG) Urine Blood Negative (NEG) Urine Nitrite Negative (NEG) Urine Bilirubin Negative (NEG) Urine Urobilinogen Dipstick 0.2 mg/dL (0.2 mg/dL) Urine Leukocyte Esterase Negative (NEG) Urine RBC Occ /HPF (0-2) Urine WBC Occ /HPF (0-4) Urine Squamous Epithelial Cells Few /LPF Urine Bacteria Few /HPF (0-FEW) White Blood Count 8.1 x10^3/uL (4.0-11.0) Red Blood Count 3.61 x10^6/uL (3.50-5.40) Hemoglobin 10.1 g/dL (12.0-15.5) Hematocrit 30.0 % (36.0-47.0) Mean Corpuscular Volume 83 fL (79-100) Mean Corpuscular Hemoglobin 28 pg (25-35) Mean Corpuscular Hemoglobin Concent 34 g/dL (31-37) Red Cell Distribution Width 14.7 % (11.5-14.5) Platelet Count 183 x10^3/uL (140-400) Neutrophils (%) (Auto) 77 % (31-73) Lymphocytes (%) (Auto) 14 % (24-48) Monocytes (%) (Auto) 8 % (0-9) Eosinophils (%) (Auto) 0 % (0-3) Basophils (%) (Auto) 1 % (0-3) Neutrophils # (Auto) 6.2 x10^3/uL (1.8-7.7) Lymphocytes # (Auto) 1.1 x10^3/uL (1.0-4.8) Monocytes # (Auto) 0.6 x10^3/uL (0.0-1.1) Eosinophils # (Auto) 0.0 x10^3/uL (0.0-0.7) Basophils # (Auto) 0.1 x10^3/uL (0.0-0.2) Sodium Level 116 mmol/L (136-145) Potassium Level 3.6 mmol/L (3.5-5.1) Chloride Level 84 mmol/L (98-107) Carbon Dioxide Level 25 mmol/L (21-32) Anion Gap 7 (6-14) Blood Urea Nitrogen 21 mg/dL (7-20) Creatinine 0.7 mg/dL (0.6-1.0) Estimated GFR (Cockcroft-Gault) 79.5 BUN/Creatinine Ratio 30 (6-20) Glucose Level 176 mg/dL (70-99) Calcium Level 9.4 mg/dL (8.5-10.1) Total Bilirubin 0.4 mg/dL (0.2-1.0) Aspartate Amino Transf (AST/SGOT) 23 U/L (15-37) Alanine Aminotransferase (ALT/SGPT) 13 U/L (14-59) Alkaline Phosphatase 94 U/L (46-116) Troponin I Quantitative 0.039 ng/mL (0.000-0.055) Total Protein 7.3 g/dL (6.4-8.2) Albumin 3.1 g/dL (3.4-5.0) Albumin/Globulin Ratio 0.7 (1.0-1.7) Lactic Acid Level 1.2 mmol/L (0.4-2.0) Influenza Type A Antigen Negative (NEGATIVE) Influenza Type B Antigen Negative (NEGATIVE) Test 03/06/19 06:52 03/06/19 09:45 03/06/19 11:37 Glucose (Fingerstick) 180 mg/dL (70-99) 220 mg/dL (70-99) White Blood Count 5.8 x10^3/uL (4.0-11.0) Red Blood Count 3.34 x10^6/uL (3.50-5.40) Hemoglobin 9.2 g/dL (12.0-15.5) Hematocrit 27.6 % (36.0-47.0) Mean Corpuscular Volume 83 fL (79-100) Mean Corpuscular Hemoglobin 28 pg (25-35) Mean Corpuscular Hemoglobin Concent 33 g/dL (31-37) Red Cell Distribution Width 14.4 % (11.5-14.5) Platelet Count 176 x10^3/uL (140-400) Neutrophils (%) (Auto) 68 % (31-73) Lymphocytes (%) (Auto) 20 % (24-48) Monocytes (%) (Auto) 12 % (0-9) Eosinophils (%) (Auto) 0 % (0-3) Basophils (%) (Auto) 1 % (0-3) Neutrophils # (Auto) 3.9 x10^3/uL (1.8-7.7) Lymphocytes # (Auto) 1.1 x10^3/uL (1.0-4.8) Monocytes # (Auto) 0.7 x10^3/uL (0.0-1.1) Eosinophils # (Auto) 0.0 x10^3/uL (0.0-0.7) Basophils # (Auto) 0.0 x10^3/uL (0.0-0.2) Sodium Level 121 mmol/L (136-145) Potassium Level 2.9 mmol/L (3.5-5.1) Chloride Level 85 mmol/L (98-107) Carbon Dioxide Level 28 mmol/L (21-32) Anion Gap 8 (6-14) Blood Urea Nitrogen 18 mg/dL (7-20) Creatinine 0.6 mg/dL (0.6-1.0) Estimated GFR (Cockcroft-Gault) 95.0 Glucose Level 199 mg/dL (70-99) Calcium Level 8.8 mg/dL (8.5-10.1) Assessment/Plan Assessment/Plan IMP 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
--- NOTE | 2019-03-06 13:58 | NUR ---
SS following for discharge planning. SS reviewed pt chart. Pt is from home with spouse and is currently on room air. SS will continue to follow for discharge planning.
[2019-03-06] MEDS ORDERED: POTASSIUM CHLORIDE 10 MEQ TABLET.ER. PO ONE (14:00)
[2019-03-06] MEDS: FUROSEMIDE 40 MG/4 ML VIAL. IVP SCH (14:51)
[2019-03-06] MEDS ORDERED: PROCHLORPERAZINE 10 MG/2 ML VIAL. IV PRN (15:15)
[2019-03-06] MEDS ORDERED: 0.9 % SODIUM CHLORIDE 10 ML DISP.SYRIN. IV PRN (15:15)
[2019-03-06] MEDS ORDERED: ONDANSETRON PF 4 MG/2 ML VIAL. IV PRN (15:15)
[2019-03-06] MEDS: HEPARIN for SUB-Q USE 5,000 UNIT/ML VIAL. SQ SCH ×2 (15:56→22:07)
[2019-03-06 17:09] LABS: CREATININE 0.7 mg/dL (0.6-1.0); GFR 79.5; POTASSIUM 3.5 mmol/L (3.5-5.1)
[2019-03-06 18:37] LABS: HEMATOCRIT 29.5 % (36.0-47.0); RED BLOOD COUNT 3.56 x10^6/uL (3.50-5.40); RED CELL DISTRIBUTION WIDTH 14.5 % (11.5-14.5); WHITE BLOOD COUNT 6.4 x10^3/uL (4.0-11.0)
[2019-03-06] MEDS ORDERED: INSULIN GLARGINE SYRINGE. SQ SCH (21:00)
[2019-03-06] MEDS: DOCUSATE SODIUM 100 MG CAPSULE. PO SCH (21:07)
[2019-03-06] MEDS: ATORVASTATIN CALCIUM 20 MG TABLET PO SCH (21:07)
[2019-03-06] MEDS: FAMOTIDINE 20 MG/2 ML VIAL IVP SCH (21:07)
[2019-03-07] VITALS (24 sets, daily range): BP systolic 118–178; BP diastolic 53–89
[2019-03-07 03:40] LABS: ALBUMIN 2.6 g/dL (3.4-5.0); ALBUMIN/GLOBULIN RATIO 0.7 (1.0-1.7); CALCIUM 8.7 mg/dL (8.5-10.1); CREATININE 0.7 mg/dL (0.6-1.0); GFR 79.5; MAGNESIUM 1.5 mg/dL (1.8-2.4); POTASSIUM 3.1 mmol/L (3.5-5.1); TOTAL BILIRUBIN 0.3 mg/dL (0.2-1.0); TOTAL PROTEIN 6.5 g/dL (6.4-8.2)
[2019-03-07] MEDS: hydrALAZINE 20 MG/ML VIAL. IVP PRN (04:23)
[2019-03-07] MEDS: HEPARIN for SUB-Q USE 5,000 UNIT/ML VIAL. SQ SCH ×3 (06:15→21:08)
--- NOTE | 2019-03-07 07:10 | EKG ---
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
[2019-03-07] MEDS ORDERED: MAGNESIUM SULFATE 2GM 50 ML IV ONE (08:15)
[2019-03-07] MEDS ORDERED: POTASSIUM CHLORIDE 20 MEQ TABLET.ER. PO ONE ×2 (08:15→12:45)
--- NOTE | 2019-03-07 08:54 | PDOC ---
PROGRESS NOTES History of Present Illness History of Present Illness VTE Prophylaxis Ordered VTE Prophylaxis Devices: No VTE Pharmacological Prophylaxi: Contraindicated Assessment/Plan Assessment/Plan Impression: Hyponatremia, severe, hyponatremia has been reported with gabapentin therapy diff dx SIAHD, Hypervolemia, chf, hepatic disease, renal disease morbid obesity cough ? 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 2016 a-fib HX DIABETES HYPERTENSION Mild to moderate tricuspid regurgitation. recent echo , PA pressure was estimated at 52 mmHg. c/w mod-severe pulmonary hypertension hypokalemia METABOLIC ENCEPHALOPATHY ADMITTED icu bed hypertonic NS Nephrology FOLLOWING hold gabapentin and narcotics serum and urine osmolality frequent lytes hold lisinopril cardiology consult replete k po AGAIN k at 1700 03/06=3.5 MCOT could be arrange to worn in [facility] AM, PM CORTISOL 32 min cc time Vitals Vitals Vital Signs Date Time Temp Pulse Resp B/P (MAP) Pulse Ox O2 Delivery O2 Flow Rate FiO2 03/07/19 07:00 58 24 151/55 (87) 97 Room Air 03/07/19 04:00 97.6 97.6 Physical Exam General: Alert, Oriented X3 (MILD CONFUSION), Cooperative, No acute distress Heart: Regular rate, Normal S1 Lungs: Clear, Other Abdomen: Normal bowel sounds, Soft, No tenderness, No hepatosplenomegaly Extremities: No clubbing, No cyanosis Skin: No breakdown Labs LABS EXAM: Chest, single view. HISTORY: Shortness of air. Cough. COMPARISON: None. FINDINGS: A frontal view of the chest is obtained. There is diffuse increased interstitial opacity. There is no consolidation, pleural effusion or pneumothorax. There is a prominent cardiac silhouette. There are calcified granulomas. IMPRESSION: Diffuse increased interstitial opacity due to interstitial infiltrate or chronic interstitial changes. There is no consolidation. Electronically signed by: Ronda Simpson MD (03/05/2019 4:59 PM) [facility] DICTATED and SIGNED BY: RONDA SIMPSON MD DATE: 03/05/19 1659 Laboratory Tests Test 03/06/19 09:45 03/06/19 11:20 03/06/19 11:37 03/06/19 16:45 White Blood Count 5.8 x10^3/uL (4.0-11.0) Red Blood Count 3.34 x10^6/uL (3.50-5.40) Hemoglobin 9.2 g/dL (12.0-15.5) Hematocrit 27.6 % (36.0-47.0) Mean Corpuscular Volume 83 fL (79-100) Mean Corpuscular Hemoglobin 28 pg (25-35) Mean Corpuscular Hemoglobin Concent 33 g/dL (31-37) Red Cell Distribution Width 14.4 % (11.5-14.5) Platelet Count 176 x10^3/uL (140-400) Neutrophils (%) (Auto) 68 % (31-73) Lymphocytes (%) (Auto) 20 % (24-48) Monocytes (%) (Auto) 12 % (0-9) Eosinophils (%) (Auto) 0 % (0-3) Basophils (%) (Auto) 1 % (0-3) Neutrophils # (Auto) 3.9 x10^3/uL (1.8-7.7) Lymphocytes # (Auto) 1.1 x10^3/uL (1.0-4.8) Monocytes # (Auto) 0.7 x10^3/uL (0.0-1.1) Eosinophils # (Auto) 0.0 x10^3/uL (0.0-0.7) Basophils # (Auto) 0.0 x10^3/uL (0.0-0.2) Sodium Level 121 mmol/L (136-145) 120 mmol/L (136-145) Potassium Level 2.9 mmol/L (3.5-5.1) 3.5 mmol/L (3.5-5.1) Chloride Level 85 mmol/L (98-107) 85 mmol/L (98-107) Carbon Dioxide Level 28 mmol/L (21-32) 29 mmol/L (21-32) Anion Gap 8 (6-14) 6 (6-14) Blood Urea Nitrogen 18 mg/dL (7-20) 17 mg/dL (7-20) Creatinine 0.6 mg/dL (0.6-1.0) 0.7 mg/dL (0.6-1.0) Estimated GFR (Cockcroft-Gault) 95.0 79.5 Glucose Level 199 mg/dL (70-99) 224 mg/dL (70-99) Calcium Level 8.8 mg/dL (8.5-10.1) 9.0 mg/dL (8.5-10.1) Urine Random Sodium 63 mmol/L (Not Estab.) Glucose (Fingerstick) 220 mg/dL (70-99) Magnesium Level 1.4 mg/dL (1.8-2.4) Test 03/06/19 17:27 03/06/19 18:30 03/06/19 21:12 03/07/19 03:05 Glucose (Fingerstick) 205 mg/dL (70-99) 215 mg/dL (70-99) White Blood Count 6.4 x10^3/uL (4.0-11.0) Red Blood Count 3.56 x10^6/uL (3.50-5.40) Hemoglobin 10.0 g/dL (12.0-15.5) Hematocrit 29.5 % (36.0-47.0) Mean Corpuscular Volume 83 fL (79-100) Mean Corpuscular Hemoglobin 28 pg (25-35) Mean Corpuscular Hemoglobin Concent 34 g/dL (31-37) Red Cell Distribution Width 14.5 % (11.5-14.5) Platelet Count 181 x10^3/uL (140-400) Sodium Level 127 mmol/L (136-145) Potassium Level 3.1 mmol/L (3.5-5.1) Chloride Level 90 mmol/L (98-107) Carbon Dioxide Level 29 mmol/L (21-32) Anion Gap 8 (6-14) Blood Urea Nitrogen 18 mg/dL (7-20) Creatinine 0.7 mg/dL (0.6-1.0) Estimated GFR (Cockcroft-Gault) 79.5 BUN/Creatinine Ratio 26 (6-20) Glucose Level 182 mg/dL (70-99) Calcium Level 8.7 mg/dL (8.5-10.1) Magnesium Level 1.5 mg/dL (1.8-2.4) Total Bilirubin 0.3 mg/dL (0.2-1.0) Aspartate Amino Transf (AST/SGOT) 22 U/L (15-37) Alanine Aminotransferase (ALT/SGPT) 12 U/L (14-59) Alkaline Phosphatase 87 U/L (46-116) FJ-Ygl-N-Type Natriuretic Peptide 608 pg/mL (0-449) Total Protein 6.5 g/dL (6.4-8.2) Albumin 2.6 g/dL (3.4-5.0) Albumin/Globulin Ratio 0.7 (1.0-1.7) Thyroid Stimulating Hormone (TSH) 1.331 uIU/mL (0.358-3.74) Assessment and Plan Assessmemt and Plan Problems Medical Problems: (1) Fatigue Status: Acute (2) Hyponatremia Status: Acute Comment Review of Relevant I have reviewed the following items imani (where applicable) has been applied. Labs Laboratory Tests Test 03/05/19 16:05 03/05/19 16:20 03/05/19 16:45 03/05/19 17:34 Urine Collection Type Void Urine Color Yellow Urine Clarity Clear Urine pH 6.0 Urine Specific [place] 1.015 Urine Protein Negative mg/dL (NEG-TRACE) Urine Glucose (UA) 250 mg/dL (NEG) Urine Ketones (Stick) Negative mg/dL (NEG) Urine Blood Negative (NEG) Urine Nitrite Negative (NEG) Urine Bilirubin Negative (NEG) Urine Urobilinogen Dipstick 0.2 mg/dL (0.2 mg/dL) Urine Leukocyte Esterase Negative (NEG) Urine RBC Occ /HPF (0-2) Urine WBC Occ /HPF (0-4) Urine Squamous Epithelial Cells Few /LPF Urine Bacteria Few /HPF (0-FEW) White Blood Count 8.1 x10^3/uL (4.0-11.0) Red Blood Count 3.61 x10^6/uL (3.50-5.40) Hemoglobin 10.1 g/dL (12.0-15.5) Hematocrit 30.0 % (36.0-47.0) Mean Corpuscular Volume 83 fL (79-100) Mean Corpuscular Hemoglobin 28 pg (25-35) Mean Corpuscular Hemoglobin Concent 34 g/dL (31-37) Red Cell Distribution Width 14.7 % (11.5-14.5) Platelet Count 183 x10^3/uL (140-400) Neutrophils (%) (Auto) 77 % (31-73) Lymphocytes (%) (Auto) 14 % (24-48) Monocytes (%) (Auto) 8 % (0-9) Eosinophils (%) (Auto) 0 % (0-3) Basophils (%) (Auto) 1 % (0-3) Neutrophils # (Auto) 6.2 x10^3/uL (1.8-7.7) Lymphocytes # (Auto) 1.1 x10^3/uL (1.0-4.8) Monocytes # (Auto) 0.6 x10^3/uL (0.0-1.1) Eosinophils # (Auto) 0.0 x10^3/uL (0.0-0.7) Basophils # (Auto) 0.1 x10^3/uL (0.0-0.2) Sodium Level 116 mmol/L (136-145) Potassium Level 3.6 mmol/L (3.5-5.1) Chloride Level 84 mmol/L (98-107) Carbon Dioxide Level 25 mmol/L (21-32) Anion Gap 7 (6-14) Blood Urea Nitrogen 21 mg/dL (7-20) Creatinine 0.7 mg/dL (0.6-1.0) Estimated GFR (Cockcroft-Gault) 79.5 BUN/Creatinine Ratio 30 (6-20) Glucose Level 176 mg/dL (70-99) Calcium Level 9.4 mg/dL (8.5-10.1) Total Bilirubin 0.4 mg/dL (0.2-1.0) Aspartate Amino Transf (AST/SGOT) 23 U/L (15-37) Alanine Aminotransferase (ALT/SGPT) 13 U/L (14-59) Alkaline Phosphatase 94 U/L (46-116) Troponin I Quantitative 0.039 ng/mL (0.000-0.055) Total Protein 7.3 g/dL (6.4-8.2) Albumin 3.1 g/dL (3.4-5.0) Albumin/Globulin Ratio 0.7 (1.0-1.7) Lactic Acid Level 1.2 mmol/L (0.4-2.0) Influenza Type A Antigen Negative (NEGATIVE) Influenza Type B Antigen Negative (NEGATIVE) Test 03/06/19 06:52 03/06/19 09:45 03/06/19 11:20 03/06/19 11:37 Glucose (Fingerstick) 180 mg/dL (70-99) 220 mg/dL (70-99) White Blood Count 5.8 x10^3/uL (4.0-11.0) Red Blood Count 3.34 x10^6/uL (3.50-5.40) Hemoglobin 9.2 g/dL (12.0-15.5) Hematocrit 27.6 % (36.0-47.0) Mean Corpuscular Volume 83 fL (79-100) Mean Corpuscular Hemoglobin 28 pg (25-35) Mean Corpuscular Hemoglobin Concent 33 g/dL (31-37) Red Cell Distribution Width 14.4 % (11.5-14.5) Platelet Count 176 x10^3/uL (140-400) Neutrophils (%) (Auto) 68 % (31-73) Lymphocytes (%) (Auto) 20 % (24-48) Monocytes (%) (Auto) 12 % (0-9) Eosinophils (%) (Auto) 0 % (0-3) Basophils (%) (Auto) 1 % (0-3) Neutrophils # (Auto) 3.9 x10^3/uL (1.8-7.7) Lymphocytes # (Auto) 1.1 x10^3/uL (1.0-4.8) Monocytes # (Auto) 0.7 x10^3/uL (0.0-1.1) Eosinophils # (Auto) 0.0 x10^3/uL (0.0-0.7) Basophils # (Auto) 0.0 x10^3/uL (0.0-0.2) Sodium Level 121 mmol/L (136-145) Potassium Level 2.9 mmol/L (3.5-5.1) Chloride Level 85 mmol/L (98-107) Carbon Dioxide Level 28 mmol/L (21-32) Anion Gap 8 (6-14) Blood Urea Nitrogen 18 mg/dL (7-20) Creatinine 0.6 mg/dL (0.6-1.0) Estimated GFR (Cockcroft-Gault) 95.0 Glucose Level 199 mg/dL (70-99) Calcium Level 8.8 mg/dL (8.5-10.1) Urine Random Sodium 63 mmol/L (Not Estab.) Test 03/06/19 16:45 03/06/19 17:27 03/06/19 18:30 03/06/19 21:12 Sodium Level 120 mmol/L (136-145) Potassium Level 3.5 mmol/L (3.5-5.1) Chloride Level 85 mmol/L (98-107) Carbon Dioxide Level 29 mmol/L (21-32) Anion Gap 6 (6-14) Blood Urea Nitrogen 17 mg/dL (7-20) Creatinine 0.7 mg/dL (0.6-1.0) Estimated GFR (Cockcroft-Gault) 79.5 Glucose Level 224 mg/dL (70-99) Calcium Level 9.0 mg/dL (8.5-10.1) Magnesium Level 1.4 mg/dL (1.8-2.4) Glucose (Fingerstick) 205 mg/dL (70-99) 215 mg/dL (70-99) White Blood Count 6.4 x10^3/uL (4.0-11.0) Red Blood Count 3.56 x10^6/uL (3.50-5.40) Hemoglobin 10.0 g/dL (12.0-15.5) Hematocrit 29.5 % (36.0-47.0) Mean Corpuscular Volume 83 fL (79-100) Mean Corpuscular Hemoglobin 28 pg (25-35) Mean Corpuscular Hemoglobin Concent 34 g/dL (31-37) Red Cell Distribution Width 14.5 % (11.5-14.5) Platelet Count 181 x10^3/uL (140-400) Test 03/07/19 03:05 Sodium Level 127 mmol/L (136-145) Potassium Level 3.1 mmol/L (3.5-5.1) Chloride Level 90 mmol/L (98-107) Carbon Dioxide Level 29 mmol/L (21-32) Anion Gap 8 (6-14) Blood Urea Nitrogen 18 mg/dL (7-20) Creatinine 0.7 mg/dL (0.6-1.0) Estimated GFR (Cockcroft-Gault) 79.5 BUN/Creatinine Ratio 26 (6-20) Glucose Level 182 mg/dL (70-99) Calcium Level 8.7 mg/dL (8.5-10.1) Magnesium Level 1.5 mg/dL (1.8-2.4) Total Bilirubin 0.3 mg/dL (0.2-1.0) Aspartate Amino Transf (AST/SGOT) 22 U/L (15-37) Alanine Aminotransferase (ALT/SGPT) 12 U/L (14-59) Alkaline Phosphatase 87 U/L (46-116) KA-Fsu-J-Type Natriuretic Peptide 608 pg/mL (0-449) Total Protein 6.5 g/dL (6.4-8.2) Albumin 2.6 g/dL (3.4-5.0) Albumin/Globulin Ratio 0.7 (1.0-1.7) Thyroid Stimulating Hormone (TSH) 1.331 uIU/mL (0.358-3.74) Laboratory Tests Test 03/06/19 09:45 03/06/19 11:20 03/06/19 11:37 03/06/19 16:45 White Blood Count 5.8 x10^3/uL (4.0-11.0) Red Blood Count 3.34 x10^6/uL (3.50-5.40) Hemoglobin 9.2 g/dL (12.0-15.5) Hematocrit 27.6 % (36.0-47.0) Mean Corpuscular Volume 83 fL (79-100) Mean Corpuscular Hemoglobin 28 pg (25-35) Mean Corpuscular Hemoglobin Concent 33 g/dL (31-37) Red Cell Distribution Width 14.4 % (11.5-14.5) Platelet Count 176 x10^3/uL (140-400) Neutrophils (%) (Auto) 68 % (31-73) Lymphocytes (%) (Auto) 20 % (24-48) Monocytes (%) (Auto) 12 % (0-9) Eosinophils (%) (Auto) 0 % (0-3) Basophils (%) (Auto) 1 % (0-3) Neutrophils # (Auto) 3.9 x10^3/uL (1.8-7.7) Lymphocytes # (Auto) 1.1 x10^3/uL (1.0-4.8) Monocytes # (Auto) 0.7 x10^3/uL (0.0-1.1) Eosinophils # (Auto) 0.0 x10^3/uL (0.0-0.7) Basophils # (Auto) 0.0 x10^3/uL (0.0-0.2) Sodium Level 121 mmol/L (136-145) 120 mmol/L (136-145) Potassium Level 2.9 mmol/L (3.5-5.1) 3.5 mmol/L (3.5-5.1) Chloride Level 85 mmol/L (98-107) 85 mmol/L (98-107) Carbon Dioxide Level 28 mmol/L (21-32) 29 mmol/L (21-32) Anion Gap 8 (6-14) 6 (6-14) Blood Urea Nitrogen 18 mg/dL (7-20) 17 mg/dL (7-20) Creatinine 0.6 mg/dL (0.6-1.0) 0.7 mg/dL (0.6-1.0) Estimated GFR (Cockcroft-Gault) 95.0 79.5 Glucose Level 199 mg/dL (70-99) 224 mg/dL (70-99) Calcium Level 8.8 mg/dL (8.5-10.1) 9.0 mg/dL (8.5-10.1) Urine Random Sodium 63 mmol/L (Not Estab.) Glucose (Fingerstick) 220 mg/dL (70-99) Magnesium Level 1.4 mg/dL (1.8-2.4) Test 03/06/19 17:27 03/06/19 18:30 03/06/19 21:12 03/07/19 03:05 Glucose (Fingerstick) 205 mg/dL (70-99) 215 mg/dL (70-99) White Blood Count 6.4 x10^3/uL (4.0-11.0) Red Blood Count 3.56 x10^6/uL (3.50-5.40) Hemoglobin 10.0 g/dL (12.0-15.5) Hematocrit 29.5 % (36.0-47.0) Mean Corpuscular Volume 83 fL (79-100) Mean Corpuscular Hemoglobin 28 pg (25-35) Mean Corpuscular Hemoglobin Concent 34 g/dL (31-37) Red Cell Distribution Width 14.5 % (11.5-14.5) Platelet Count 181 x10^3/uL (140-400) Sodium Level 127 mmol/L (136-145) Potassium Level 3.1 mmol/L (3.5-5.1) Chloride Level 90 mmol/L (98-107) Carbon Dioxide Level 29 mmol/L (21-32) Anion Gap 8 (6-14) Blood Urea Nitrogen 18 mg/dL (7-20) Creatinine 0.7 mg/dL (0.6-1.0) Estimated GFR (Cockcroft-Gault) 79.5 BUN/Creatinine Ratio 26 (6-20) Glucose Level 182 mg/dL (70-99) Calcium Level 8.7 mg/dL (8.5-10.1) Magnesium Level 1.5 mg/dL (1.8-2.4) Total Bilirubin 0.3 mg/dL (0.2-1.0) Aspartate Amino Transf (AST/SGOT) 22 U/L (15-37) Alanine Aminotransferase (ALT/SGPT) 12 U/L (14-59) Alkaline Phosphatase 87 U/L (46-116) UL-Jdp-S-Type Natriuretic Peptide 608 pg/mL (0-449) Total Protein 6.5 g/dL (6.4-8.2) Albumin 2.6 g/dL (3.4-5.0) Albumin/Globulin Ratio 0.7 (1.0-1.7) Thyroid Stimulating Hormone (TSH) 1.331 uIU/mL (0.358-3.74) Medications Current Medications Albuterol Sulfate (Ventolin Neb Soln) 2.5 mg 1X ONCE NEB Last administered on 03/05/19at 17:20; Start 03/05/19 at 16:30; Stop 03/05/19 at 16:33; Status DC Sodium Chloride 150 ml @ 50 mls/hr 1X ONCE IV Last administered on 03/05/19at 19:18; Start 03/05/19 at 18:15; Stop 03/05/19 at 21:14; Status DC Furosemide (Lasix) 40 mg 1X ONCE IVP Last administered on 03/05/19at 18:39; Start 03/05/19 at 18:15; Stop 03/05/19 at 18:20; Status DC Guaifenesin (Robitussin Dm) 10 ml PRN Q4HRS PRN PO COUGH Last administered on 03/06/19at 22:39; Start 03/06/19 at 04:15 Aspirin (Ecotrin) 81 mg DAILYWBKFT PO Last administered on 03/06/19at 10:16; Start 03/06/19 at 12:00 Atorvastatin Calcium (Lipitor) 20 mg QHS PO Last administered on 03/06/19at 21:07; Start 03/06/19 at 21:00 Insulin Glargine (Lantus Syringe) 6 unit QHS SQ Last administered on 03/06/19at 21:10; Start 03/06/19 at 21:00; Stop 03/07/19 at 07:29; Status DC Insulin Human Lispro (HumaLOG) TIDWMEALS SQ ; Start 03/06/19 at 12:00; Stop 03/07/19 at 07:29; Status DC Lisinopril (Prinivil) 40 mg DAILY PO Last administered on 03/06/19at 10:16; Start 03/06/19 at 10:00; Stop 03/06/19 at 15:01; Status DC Nystatin (Nystop) 1 ambrosio BID TP Last administered on 03/06/19at 23:30; Start 03/06/19 at 10:00 Polyethylene Glycol (miraLAX PACKET) 17 gm DAILY PO Last administered on 03/06/19at 10:16; Start 03/06/19 at 11:00 Aspirin (Ecotrin) 81 mg STK-MED ONCE PO ; Start 03/06/19 at 10:14; Stop 03/06/19 at 10:15; Status DC Potassium Chloride (Klor-Con) 40 meq 1X ONCE PO Last administered on 03/06/19at 10:46; Start 03/06/19 at 10:45; Stop 03/06/19 at 10:46; Status DC Potassium Chloride (Klor-Con) 10 meq 1X ONCE PO ; Start 03/06/19 at 14:00; Stop 03/06/19 at 11:42; Status DC Hydralazine HCl (Apresoline Inj) 10 mg PRN Q4HRS PRN IVP ELEVATED BP, SEE COMM ENTS Last administered on 03/07/19at 04:23; Start 03/06/19 at 10:45 Sodium Chloride 250 ml @ 25 mls/hr 1X ONCE IV Last administered on 03/06/19at 13:27; Start 03/06/19 at 11:45; Stop 03/06/19 at 21:44; Status DC Furosemide (Lasix) 40 mg 1X ONCE IVP Last administered on 03/06/19at 12:06; Start 03/06/19 at 11:45; Stop 03/06/19 at 11:46; Status DC Potassium Chloride (Klor-Con) 40 meq 1X ONCE PO Last administered on 03/06/19at 14:02; Start 03/06/19 at 14:00; Stop 03/06/19 at 14:01; Status DC Furosemide (Lasix) 40 mg BID92 IVP Last administered on 03/06/19at 14:51; Start 03/06/19 at 14:00 Potassium Chloride (Klor-Con) 20 meq DAILYWBKFT PO ; Start 03/07/19 at 08:00 Lorazepam (Ativan Inj) 0.5 mg PRN Q6HRS PRN IV ANXIETY / AGITATION; Start 03/06/19 at 15:15 Ondansetron HCl (Zofran) 4 mg PRN Q6HRS PRN IV NAUSEA/VOMITING; Start 03/06/19 at 15:15 Prochlorperazine Edisylate (Compazine) 5 mg PRN Q6HRS PRN IV NAUSEA/VOMITING; Start 03/06/19 at 15:15 Famotidine (Pepcid Vial) 20 mg BID IVP Last administered on 03/06/19at 21:07; Start 03/06/19 at 21:00 Heparin Sodium (Porcine) (Heparin Sodium) 5,000 unit Q8HRS SQ Last administered on 03/07/19at 06:15; Start 03/06/19 at 15:30 Sodium Chloride (Normal Saline Flush) 3 ml QSHIFT PRN IV AFTER MEDS AND BLOOD DRAWS; Start 03/06/19 at 15:15 Docusate Sodium (Colace) 100 mg BID PO Last administered on 03/06/19at 21:07; Start 03/06/19 at 21:00 Insulin Glargine (Lantus Syringe) 20 unit QHS SQ ; Start 03/07/19 at 21:00 Insulin Human Lispro (HumaLOG) 5 units TIDWMEALS SQ ; Start 03/07/19 at 07:30 Magnesium Sulfate 50 ml @ 25 mls/hr 1X ONCE IV ; Start 03/07/19 at 08:15; Stop 03/07/19 at 10:14 Potassium Chloride (Klor-Con) 40 meq 1X ONCE PO ; Start 03/07/19 at 08:15; Stop 03/07/19 at 08:16; Status DC Active Scripts Active Polyethylene Glycol 3350 17 Gm Powd.pack 17 Gm PO DAILY 30 Days Nystop (Nystatin) 60 Gm Powder 1 Ambrosio TP BID 14 Days Humalog (Insulin Lispro) 100 Unit/1 Ml Insuln.pen 0 Units SQ TIDWMEALS 30 Days Lantus (Insulin Glargine,Hum.rec.anlog) 100 Unit/1 Ml Vial 6 Unit SQ QHS 30 Days Aspirin Ec (Aspirin) 81 Mg Tablet. 81 Mg PO DAILYWBKFT 30 Days Atorvastatin Calcium 20 Mg Tablet 20 Mg PO QHS 30 Days Oxycodone-Acetaminophen 5-325 (Oxycodone Hcl/Acetaminophen) 1 Each Tablet 1 Tab PO PRN Q6HRS PRN Reported Gabapentin (Gabapentin) 300 Mg Capsule 300 Mg PO HS PRN Take extra dose 2 hours after first dose if neuropathy persists Gabapentin (Gabapentin) 300 Mg Capsule 300 Mg PO HS Glimepiride 4 Mg Tablet 1 Tab PO BID Lisinopril 40 Mg Tablet 40 Mg PO DAILY Vitals/I & O Vital Sign - Last 24 Hours 03/06/19 03/06/19 03/06/19 03/06/19 10:10 10:16 13:00 14:00 Temp 98.2 98.1 98.2 98.1 Pulse 89 89 68 86 Resp 20 18 18 B/P (MAP) 198/81 (120) 198/81 185/83 (117) 155/70 (98) Pulse Ox 93 97 96 O2 Delivery Room Air Room Air Room Air 03/06/19 03/06/19 03/06/19 03/06/19 15:00 16:00 17:00 18:00 Temp 98.1 98.1 Pulse 97 65 69 94 Resp 18 18 18 18 B/P (MAP) 175/77 (109) 168/92 (117) 158/75 (102) 170/64 (99) Pulse Ox 100 100 100 96 O2 Delivery Room Air Room Air Room Air Room Air 03/06/19 03/06/19 03/06/19 03/06/19 19:00 20:00 20:00 21:00 Temp 98.3 98.3 Pulse 86 64 64 Resp 18 18 18 B/P (MAP) 159/60 (93) 134/61 (85) 153/72 (99) Pulse Ox 98 96 96 O2 Delivery Room Air Room Air Room Air Room Air 03/06/19 03/06/19 03/06/19 03/07/19 22:00 23:00 23:46 00:01 Temp 98.1 98.1 Pulse 88 80 62 Resp 18 18 18 B/P (MAP) 125/81 (96) 160/92 (114) 155/66 (95) Pulse Ox 95 98 97 O2 Delivery Room Air Room Air Room Air Room Air 03/07/19 03/07/19 03/07/19 03/07/19 01:00 02:00 03:00 03:49 Pulse 60 58 60 Resp 18 18 18 B/P (MAP) 129/54 (79) 118/53 (74) 156/73 (100) Pulse Ox 96 96 97 O2 Delivery Room Air Room Air Room Air Room Air 03/07/19 03/07/19 03/07/19 03/07/19 04:00 04:23 05:00 06:00 Temp 97.6 97.6 Pulse 55 55 64 64 Resp 18 18 18 B/P (MAP) 164/59 (94) 164/59 144/59 (87) 144/61 (88) Pulse Ox 95 97 97 O2 Delivery Room Air Room Air Room Air 03/07/19 07:00 Pulse 58 Resp 24 B/P (MAP) 151/55 (87) Pulse Ox 97 O2 Delivery Room Air Intake and Output 03/06/19 03/06/19 03/07/19 14:59 22:59 06:59 Intake Total 800 ml 440 ml 510 ml Output Total 1150 ml 1700 ml 600 ml Balance -350 ml -1260 ml -90 ml KARYN NORWOOD MD Mar 07, 2019 08:54
[2019-03-07] MEDS: POLYETHYLENE GLYCOL 3350 17 GM PACKET. PO SCH (09:00)
[2019-03-07] MEDS: DOCUSATE SODIUM 100 MG CAPSULE. PO SCH ×2 (09:00→20:58)
[2019-03-07] MEDS: INSULIN LISPRO 300 UNITS/3 ML VIAL. SQ SCH ×3 (09:09→17:39)
[2019-03-07] MEDS: NYSTATIN TOPICAL POWDER 15GM BOTTLE. TP SCH ×2 (09:10→20:58)
[2019-03-07] MEDS: ASPIRIN ENTERIC COATED 81 MG TABLET.DR. PO SCH (09:14)
[2019-03-07] MEDS: FAMOTIDINE 20 MG/2 ML VIAL IVP SCH ×2 (09:14→20:58)
[2019-03-07] MEDS ORDERED: ALBUTEROL SULFATE 2.5 MG/3 ML NEBU. NEB ONE (10:30)
--- NOTE | 2019-03-07 10:30 | PDOC2 ---
CAESAR MCCARYT EXPELLER OPERATOR 03/07/19 1030: CARDIAC CONSULT DATE OF CONSULT Date of Consult DATE: 03/07/19 TIME: 10:01 REASON FOR CONSULT Reason for Consult: Severe pulmonary HTN REFERRING PHYSICIAN Referring Physician: Fullbright SOURCE Source: Chart review, Patient HISTORY OF PRESENT ILLNESS HISTORY OF PRESENT ILLNESS This is a pleasant 83 yo female admitted for complains of weakness. She was just discharge from [facility] last Monday and was actually doing well able to walk without difficulty but has been feeling onset of chest congestion. No fever or chills. No recent antibiotics. Reports that she has been becoming progressively weak in the last few days though she has been eating 3x daily. No orthopnea no MELO or SOA but positive for nonrproductive cough and increasing leg swelling. Denies any chest pain, nausea, vomiting or diarrhea. She has been taking her medications regularly including lisinopril. No frequent dizziness or passing out. She uses a walker and gets visited by home health. SHe was checked one time by home health and her SBP was in the 140s otherwise she does not check her BP. PAST MEDICAL HISTORY Past Medical History Cardiovascular: AFIB, HTN, Hyperlipidemia, bradycardia CENTRAL NERVOUS SYSTEM: CVA Heme/Onc: Cancer (cervical ) Musculoskeletal: Osteoarthritis Endocrine: Diabetes, Hyperparathyroidism PAST SURGICAL HISTORY Past Surgical History Appendectomy, Cataract Removal, Total knee replacement (bilateral ), Hysterectomy FAMILY HISTORY Family History: Hypertension SOCIAL HISTORY Smoke: No ALCOHOL: none Drugs: None Lives: with Family (spouse) CURRENT MEDICATIONS CURRENT MEDICATIONS Current Medications Medications (Trade) Dose Ordered Sig/Mignon Route PRN Reason Start Time Stop Time Status Last Admin Dose Admin Aspirin (Ecotrin) 81 mg [id number] PO 03/06/19 12:00 03/07/19 09:14 Atorvastatin Calcium (Lipitor) 20 mg QHS PO 03/06/19 21:00 03/06/19 21:07 Insulin Glargine (Lantus Syringe) 6 unit QHS SQ 03/06/19 21:00 03/07/19 07:29 DC 03/06/19 21:10 Polyethylene Glycol (miraLAX PACKET) 17 gm DAILY PO 03/06/19 11:00 03/06/19 10:16 Potassium Chloride (Klor-Con) 40 meq 1X ONCE PO 03/06/19 10:45 03/06/19 10:46 DC 03/06/19 10:46 Hydralazine HCl (Apresoline Inj) 10 mg PRN Q4HRS PRN IVP ELEVATED BP, SEE COMMENTS 03/06/19 10:45 03/07/19 04:23 Sodium Chloride 250 ml @ 25 mls/hr 1X ONCE IV 03/06/19 11:45 03/06/19 21:44 DC 03/06/19 13:27 Furosemide (Lasix) 40 mg 1X ONCE IVP 03/06/19 11:45 03/06/19 11:46 DC 03/06/19 12:06 Potassium Chloride (Klor-Con) 40 meq 1X ONCE PO 03/06/19 14:00 03/06/19 14:01 DC 03/06/19 14:02 Furosemide (Lasix) 40 mg [id number] IVP 03/06/19 14:00 03/06/19 14:51 Famotidine (Pepcid Vial) 20 mg BID IVP 03/06/19 21:00 03/07/19 09:14 Heparin Sodium (Porcine) (Heparin Sodium) 5,000 unit Q8HRS SQ 03/06/19 15:30 03/07/19 06:15 Docusate Sodium (Colace) 100 mg BID PO 03/06/19 21:00 03/06/19 21:07 Insulin Human Lispro (HumaLOG) 5 units TIDWMEALS SQ 03/07/19 07:30 03/07/19 09:09 Magnesium Sulfate 50 ml @ 25 mls/hr 1X ONCE IV 03/07/19 08:15 03/07/19 10:14 03/07/19 09:15 Potassium Chloride (Klor-Con) 40 meq 1X ONCE PO 03/07/19 08:15 03/07/19 08:16 DC 03/07/19 09:14 ALLERGIES ALLERGIES: Coded Allergies: morphine (Verified Allergy, Intermediate, 07/31/15) pear (Verified Allergy, Intermediate, 06/03/15) codeine (Verified Adverse Reaction, Intermediate, dizzy, 06/01/15) MORPHINE OK ROS Review of System 14 point ROS evaluated with pertinent positives noted per HPI PHYSICAL EXAM General: Alert, Oriented X3, Cooperative, No acute distress HEENT: Atraumatic, Mucous membr. moist/pink Lungs: Other (basilar crackles with diffuse wheeze) Heart: Other (AFIB rate controlled) Abdomen: Soft, No tenderness Extremities: No cyanosis, Other (3+ bilateral LE edema) Skin: No breakdown, Other (bilateral LE venous dermatitis) Neuro: Normal speech, Sensation intact Psych/Mental Status: Mental status NL, Mood NL MUSCULOSKELETAL: Osteoarthritic changes both hands VITALS/I&O VITALS/I&O: Vital Signs Date Time Temp Pulse Resp B/P (MAP) Pulse Ox O2 Delivery O2 Flow Rate FiO2 03/07/19 07:00 58 24 151/55 (87) 97 Room Air 03/07/19 04:00 97.6 97.6 I & O 0 03/06/19 03/06/19 03/07/19 15:00 23:00 07:00 Intake Total 800 ml 440 ml 510 ml Output Total 1150 ml 1700 ml 600 ml Balance -350 ml -1260 ml -90 ml LABS Lab: Laboratory Tests Test 03/06/19 11:20 03/06/19 11:37 03/06/19 16:45 03/06/19 17:27 Urine Random Sodium 63 mmol/L (Not Estab.) Glucose (Fingerstick) 220 mg/dL (70-99) H 205 mg/dL (70-99) H Sodium Level 120 mmol/L (136-145) *L Potassium Level 3.5 mmol/L (3.5-5.1) Chloride Level 85 mmol/L (98-107) L Carbon Dioxide Level 29 mmol/L (21-32) Anion Gap 6 (6-14) Blood Urea Nitrogen 17 mg/dL (7-20) Creatinine 0.7 mg/dL (0.6-1.0) Estimated GFR (Cockcroft-Gault) 79.5 Glucose Level 224 mg/dL (70-99) H Calcium Level 9.0 mg/dL (8.5-10.1) Magnesium Level 1.4 mg/dL (1.8-2.4) L Test 03/06/19 18:30 03/06/19 21:12 03/07/19 03:05 White Blood Count 6.4 x10^3/uL (4.0-11.0) Red Blood Count 3.56 x10^6/uL (3.50-5.40) Hemoglobin 10.0 g/dL (12.0-15.5) L Hematocrit 29.5 % (36.0-47.0) L Mean Corpuscular Volume 83 fL (79-100) Mean Corpuscular Hemoglobin 28 pg (25-35) Mean Corpuscular Hemoglobin Concent 34 g/dL (31-37) Red Cell Distribution Width 14.5 % (11.5-14.5) Platelet Count 181 x10^3/uL (140-400) Glucose (Fingerstick) 215 mg/dL (70-99) H Sodium Level 127 mmol/L (136-145) L Potassium Level 3.1 mmol/L (3.5-5.1) L Chloride Level 90 mmol/L (98-107) L Carbon Dioxide Level 29 mmol/L (21-32) Anion Gap 8 (6-14) Blood Urea Nitrogen 18 mg/dL (7-20) Creatinine 0.7 mg/dL (0.6-1.0) Estimated GFR (Cockcroft-Gault) 79.5 BUN/Creatinine Ratio 26 (6-20) H Glucose Level 182 mg/dL (70-99) H Calcium Level 8.7 mg/dL (8.5-10.1) Magnesium Level 1.5 mg/dL (1.8-2.4) L Total Bilirubin 0.3 mg/dL (0.2-1.0) Aspartate Amino Transferase (AST) 22 U/L (15-37) Alanine Aminotransferase (ALT) 12 U/L (14-59) L Alkaline Phosphatase 87 U/L (46-116) VV-Efr-W-Type Natriuretic Peptide 608 pg/mL (0-449) H Total Protein 6.5 g/dL (6.4-8.2) Albumin 2.6 g/dL (3.4-5.0) L Albumin/Globulin Ratio 0.7 (1.0-1.7) L Thyroid Stimulating Hormone (TSH) 1.331 uIU/mL (0.358-3.74) Laboratory Tests 03/06/19 18:30 Laboratory Tests 03/06/19 16:45 03/07/19 03:05 ECHOCARDIOGRAM ECHOCARDIOGRAM <Conclusion> The left ventricular systolic function is normal. The Ejection Fraction is 55-60%. There is normal LV segmental wall motion. Mild aortic regurgitation. Mild mitral regurgitation. Mild tricuspid regurgitation. The PA pressure was estimated at 52 mmHg. There is no evidence of significant pericardial effusion. DATE: 02/07/19 1051 ASSESSMENT/PLAN ASSESSMENT/PLAN 1. Hyponatremia: Improving. Nephrology following 2. Acute on chronic diastolic CHF: likely driven by labile BP 3. Weakness: due to hyponatremia 4. Moderate pulmonary HTN: EF and WM nml. 5. Permanent AFIB with bradycardia: lowest mid 40s no pauses aminly while asleep. This is known and [facility]OT was arrange but pt went to SNU. Rate controlled mean at 70s 6. HTN urgency: improved 7. Diabetes, II; takes metformin at home. per PCP 8. H/o CVA 9. Chronic LE edema, venous insufficiency 10. Hypokalemia/hypomagnesemia Recommendations 1. Avoid AV abby blocking agents. Continue lasix therapy. Stop lisinopril. 3% saline given 2. Will check if [facility]OT could be arrange to worn in SNU 3. ASA, statin. Patient has declined OAC in the past 4. F/u with Dr. Wells as scheduled on 03/28 at 9:45 AM 5. Monitor BP trend and will consider norvasc. HBPM. 6. Replace K and Mg. Albuterol x1 7. PT/OT OLGA WELLS MD 03/07/192024: CARDIAC CONSULT ASSESSMENT/PLAN ASSESSMENT/PLAN Patient seen and examined. Agree with INTEGRATION DEVELOPER's assessment and plan. Continue diuresis for acute oh chr diast HF Perm atrial fib rate controlled with few episodes of RVR probably vagally mediated Agree with MCOT as outpatient BP better controlled Continue current management of hyponatremia per nephrology team Thank you for your consultation CAESAR MCCARTY APRN Mar 07, 2019 10:30 OLGA WELLS MD Mar 07, 2019 20:25
[2019-03-07] MEDS: POTASSIUM CHLORIDE 20 MEQ TABLET.ER. PO SCH (11:14)
[2019-03-07] MEDS: FUROSEMIDE 40 MG/4 ML VIAL. IVP SCH ×2 (11:14→15:32)
--- NOTE | 2019-03-07 14:31 | PDOC ---
Renal-Progress Notes Subjective Notes Notes FEELING BETTER History of Present Illness Hx of present illness STABLE Vitals Vitals Vital Signs Date Time Temp Pulse Resp B/P (MAP) Pulse Ox O2 Delivery O2 Flow Rate FiO2 03/07/19 12:00 97.5 70 24 153/69 (97) 96 Room Air 97.5 Weight Weight [ ] I.O. Intake and Output Intake and Output 03/07/19 07:00 Intake Total 1750 ml Output Total 3450 ml Balance -1700 ml Intake Oral 1440 ml IV Total 310 ml Output Urine Total 3450 ml # Voids 2 # Bowel Movements 2 Labs Labs Laboratory Tests Test 03/06/19 16:45 03/06/19 17:27 03/06/19 18:30 03/06/19 21:12 Sodium Level 120 mmol/L (136-145) Potassium Level 3.5 mmol/L (3.5-5.1) Chloride Level 85 mmol/L (98-107) Carbon Dioxide Level 29 mmol/L (21-32) Anion Gap 6 (6-14) Blood Urea Nitrogen 17 mg/dL (7-20) Creatinine 0.7 mg/dL (0.6-1.0) Estimated GFR (Cockcroft-Gault) 79.5 Glucose Level 224 mg/dL (70-99) Calcium Level 9.0 mg/dL (8.5-10.1) Magnesium Level 1.4 mg/dL (1.8-2.4) Glucose (Fingerstick) 205 mg/dL (70-99) 215 mg/dL (70-99) White Blood Count 6.4 x10^3/uL (4.0-11.0) Red Blood Count 3.56 x10^6/uL (3.50-5.40) Hemoglobin 10.0 g/dL (12.0-15.5) Hematocrit 29.5 % (36.0-47.0) Mean Corpuscular Volume 83 fL (79-100) Mean Corpuscular Hemoglobin 28 pg (25-35) Mean Corpuscular Hemoglobin Concent 34 g/dL (31-37) Red Cell Distribution Width 14.5 % (11.5-14.5) Platelet Count 181 x10^3/uL (140-400) Test 03/07/19 03:05 03/07/19 12:03 03/07/19 13:00 Sodium Level 127 mmol/L (136-145) Potassium Level 3.1 mmol/L (3.5-5.1) Chloride Level 90 mmol/L (98-107) Carbon Dioxide Level 29 mmol/L (21-32) Anion Gap 8 (6-14) Blood Urea Nitrogen 18 mg/dL (7-20) Creatinine 0.7 mg/dL (0.6-1.0) Estimated GFR (Cockcroft-Gault) 79.5 BUN/Creatinine Ratio 26 (6-20) Glucose Level 182 mg/dL (70-99) Calcium Level 8.7 mg/dL (8.5-10.1) Magnesium Level 1.5 mg/dL (1.8-2.4) Total Bilirubin 0.3 mg/dL (0.2-1.0) Aspartate Amino Transf (AST/SGOT) 22 U/L (15-37) Alanine Aminotransferase (ALT/SGPT) 12 U/L (14-59) Alkaline Phosphatase 87 U/L (46-116) HS-Git-X-Type Natriuretic Peptide 608 pg/mL (0-449) Total Protein 6.5 g/dL (6.4-8.2) Albumin 2.6 g/dL (3.4-5.0) Albumin/Globulin Ratio 0.7 (1.0-1.7) Thyroid Stimulating Hormone (TSH) 1.331 uIU/mL (0.358-3.74) Cortisol AM Sample 10.9 ug/dL (4.3-22.4) Glucose (Fingerstick) 213 mg/dL (70-99) Cortisol PM Sample 16.8 ug/dL (3.1-16.7) Review of Systems Constitutional: yes: alert, oriented Ears/Nose/Throat: Yes: no symptom reported Eyes: Yes: no symptom reported Pulmonary: Yes dyspnea Cardiovascular: Yes edema Gastrointestional: Yes: no symptom reported Genitourinary: Yes: no symptom reported Musculoskeletal: Yes: no symptom reported Skin: Yes no symptom reported Psychiatric/Neurological: Yes: no symptom reported Physical Exam General Appearance: no apparent distress Respiratory: decreased breath sounds Heart: S1S2 Genitourinary: bladder flat Extremities: edema Neurology: alert, oriented Musculoskeletal: Osteoarthritis Assessment Assessment IMP SEVERE HYPONATREMIA-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
--- NOTE | 2019-03-07 14:58 | NUR ---
Wound Care: Patient seen per wound care consult. Patient has yeast to under the pannus region. Area cleansed and assessed. Nystatin powder and chux applied to area. No other wounds noted. JUANY Romero present for assessment. Wound care will sign off at this time as this is not a wound. Please re consult regarding any changes per wound care. Call light in reach.
[2019-03-07] MEDS ORDERED: SODIUM CHLORIDE 3 % 200 ML IV ONE (15:00)
[2019-03-07] MEDS ORDERED: ALBUTEROL SULFATE 2.5 MG/3 ML NEBU. ONE (15:51)
[2019-03-07] MEDS: guaiFENesin DM 200MG/20MG 10 ML SYRUP PO PRN (20:57)
[2019-03-07] MEDS: ATORVASTATIN CALCIUM 20 MG TABLET PO SCH (20:58)
[2019-03-07] MEDS ORDERED: INSULIN GLARGINE SYRINGE. SQ SCH (21:00)
[2019-03-08] VITALS (11 sets, daily range): BP systolic 129–174; BP diastolic 66–92
[2019-03-08 05:35] LABS: ALBUMIN 2.5 g/dL (3.4-5.0); ALBUMIN/GLOBULIN RATIO 0.7 (1.0-1.7); CREATININE 0.8 mg/dL (0.6-1.0); GFR 68.2; POTASSIUM 3.7 mmol/L (3.5-5.1); TOTAL BILIRUBIN 0.2 mg/dL (0.2-1.0); TOTAL PROTEIN 6.3 g/dL (6.4-8.2)
[2019-03-08] MEDS: HEPARIN for SUB-Q USE 5,000 UNIT/ML VIAL. SQ SCH ×3 (06:00→21:28)
[2019-03-08] MEDS: FUROSEMIDE 40 MG/4 ML VIAL. IVP SCH (08:50)
[2019-03-08] MEDS: DOCUSATE SODIUM 100 MG CAPSULE. PO SCH ×2 (08:50→21:23)
[2019-03-08] MEDS: POTASSIUM CHLORIDE 20 MEQ TABLET.ER. PO SCH (08:51)
[2019-03-08] MEDS: FAMOTIDINE 20 MG/2 ML VIAL IVP SCH ×2 (08:51→21:23)
[2019-03-08] MEDS: ASPIRIN ENTERIC COATED 81 MG TABLET.DR. PO SCH (08:51)
[2019-03-08] MEDS: POLYETHYLENE GLYCOL 3350 17 GM PACKET. PO SCH (08:52)
[2019-03-08] MEDS: NYSTATIN TOPICAL POWDER 15GM BOTTLE. TP SCH ×2 (08:52→21:23)
--- NOTE | 2019-03-08 09:29 | PDOC ---
PROGRESS NOTES History of Present Illness History of Present Illness VTE Prophylaxis Ordered VTE Prophylaxis Devices: No VTE Pharmacological Prophylaxi: Contraindicated Assessment/Plan Assessment/Plan Impression: Hyponatremia, severe, hyponatremia has been reported with gabapentin therapy diff dx SIAHD, Hypervolemia, chf, hepatic disease, renal disease morbid obesity cough ? 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 2016 a-fib HX DIABETES HYPERTENSION Mild to moderate tricuspid regurgitation. recent echo , PA pressure was estimated at 52 mmHg. c/w mod-severe pulmonary hypertension hypokalemia METABOLIC ENCEPHALOPATHY severe protein-caloric malnutrition ADMITTED icu bed hypertonic NS Nephrology FOLLOWING hold gabapentin and narcotics serum and urine osmolality frequent lytes hold lisinopril cardiology consult replete k po AGAIN k at 1700 03/06=3.5 MCOT could be arrange to worn in SNU AM, PM CORTISOL 03/08 suspect SIADH NA 133 34 min cc time Vitals Vitals Vital Signs Date Time Temp Pulse Resp B/P (MAP) Pulse Ox O2 Delivery O2 Flow Rate FiO2 03/08/19 06:00 67 18 160/92 (114) 96 Room Air 03/08/19 04:00 98.2 98.2 Physical Exam General: Alert, Oriented X3 (MILD CONFUSION), Cooperative, No acute distress Heart: Regular rate, Other (AFIB rate controlled) Lungs: Clear, Other Abdomen: Normal bowel sounds, Soft, No tenderness, No hepatosplenomegaly Extremities: No cyanosis, Other (3+ bilateral LE edema) Skin: No breakdown, Other (bilateral LE venous dermatitis) Labs LABS Laboratory Tests Test 03/07/19 12:03 03/07/19 13:00 03/07/19 17:37 03/08/19 05:00 Glucose (Fingerstick) 213 mg/dL (70-99) 266 mg/dL (70-99) Cortisol PM Sample 16.8 ug/dL (3.1-16.7) Sodium Level 133 mmol/L (136-145) Potassium Level 3.7 mmol/L (3.5-5.1) Chloride Level 98 mmol/L (98-107) Carbon Dioxide Level 31 mmol/L (21-32) Anion Gap 4 (6-14) Blood Urea Nitrogen 21 mg/dL (7-20) Creatinine 0.8 mg/dL (0.6-1.0) Estimated GFR (Cockcroft-Gault) 68.2 BUN/Creatinine Ratio 26 (6-20) Glucose Level 169 mg/dL (70-99) Calcium Level 9.0 mg/dL (8.5-10.1) Magnesium Level 1.9 mg/dL (1.8-2.4) Total Bilirubin 0.2 mg/dL (0.2-1.0) Aspartate Amino Transf (AST/SGOT) 18 U/L (15-37) Alanine Aminotransferase (ALT/SGPT) 13 U/L (14-59) Alkaline Phosphatase 88 U/L (46-116) Total Protein 6.3 g/dL (6.4-8.2) Albumin 2.5 g/dL (3.4-5.0) Albumin/Globulin Ratio 0.7 (1.0-1.7) Assessment and Plan Assessmemt and Plan Problems Medical Problems: (1) Fatigue Status: Acute (2) Hyponatremia Status: Acute Comment Review of Relevant I have reviewed the following items imani (where applicable) has been applied. Labs Laboratory Tests Test 03/06/19 09:45 03/06/19 11:20 03/06/19 11:37 03/06/19 16:45 White Blood Count 5.8 x10^3/uL (4.0-11.0) Red Blood Count 3.34 x10^6/uL (3.50-5.40) Hemoglobin 9.2 g/dL (12.0-15.5) Hematocrit 27.6 % (36.0-47.0) Mean Corpuscular Volume 83 fL (79-100) Mean Corpuscular Hemoglobin 28 pg (25-35) Mean Corpuscular Hemoglobin Concent 33 g/dL (31-37) Red Cell Distribution Width 14.4 % (11.5-14.5) Platelet Count 176 x10^3/uL (140-400) Neutrophils (%) (Auto) 68 % (31-73) Lymphocytes (%) (Auto) 20 % (24-48) Monocytes (%) (Auto) 12 % (0-9) Eosinophils (%) (Auto) 0 % (0-3) Basophils (%) (Auto) 1 % (0-3) Neutrophils # (Auto) 3.9 x10^3/uL (1.8-7.7) Lymphocytes # (Auto) 1.1 x10^3/uL (1.0-4.8) Monocytes # (Auto) 0.7 x10^3/uL (0.0-1.1) Eosinophils # (Auto) 0.0 x10^3/uL (0.0-0.7) Basophils # (Auto) 0.0 x10^3/uL (0.0-0.2) Sodium Level 121 mmol/L (136-145) 120 mmol/L (136-145) Potassium Level 2.9 mmol/L (3.5-5.1) 3.5 mmol/L (3.5-5.1) Chloride Level 85 mmol/L (98-107) 85 mmol/L (98-107) Carbon Dioxide Level 28 mmol/L (21-32) 29 mmol/L (21-32) Anion Gap 8 (6-14) 6 (6-14) Blood Urea Nitrogen 18 mg/dL (7-20) 17 mg/dL (7-20) Creatinine 0.6 mg/dL (0.6-1.0) 0.7 mg/dL (0.6-1.0) Estimated GFR (Cockcroft-Gault) 95.0 79.5 Glucose Level 199 mg/dL (70-99) 224 mg/dL (70-99) Plasma/Serum Osmolality 251 mOsmol/kg (280-301) Calcium Level 8.8 mg/dL (8.5-10.1) 9.0 mg/dL (8.5-10.1) Urine Osmolality 547 mOsmol/kg (.) Urine Random Sodium 63 mmol/L (Not Estab.) Glucose (Fingerstick) 220 mg/dL (70-99) Magnesium Level 1.4 mg/dL (1.8-2.4) Test 03/06/19 17:27 03/06/19 18:30 03/06/19 21:12 03/07/19 03:05 Glucose (Fingerstick) 205 mg/dL (70-99) 215 mg/dL (70-99) White Blood Count 6.4 x10^3/uL (4.0-11.0) Red Blood Count 3.56 x10^6/uL (3.50-5.40) Hemoglobin 10.0 g/dL (12.0-15.5) Hematocrit 29.5 % (36.0-47.0) Mean Corpuscular Volume 83 fL (79-100) Mean Corpuscular Hemoglobin 28 pg (25-35) Mean Corpuscular Hemoglobin Concent 34 g/dL (31-37) Red Cell Distribution Width 14.5 % (11.5-14.5) Platelet Count 181 x10^3/uL (140-400) Sodium Level 127 mmol/L (136-145) Potassium Level 3.1 mmol/L (3.5-5.1) Chloride Level 90 mmol/L (98-107) Carbon Dioxide Level 29 mmol/L (21-32) Anion Gap 8 (6-14) Blood Urea Nitrogen 18 mg/dL (7-20) Creatinine 0.7 mg/dL (0.6-1.0) Estimated GFR (Cockcroft-Gault) 79.5 BUN/Creatinine Ratio 26 (6-20) Glucose Level 182 mg/dL (70-99) Calcium Level 8.7 mg/dL (8.5-10.1) Magnesium Level 1.5 mg/dL (1.8-2.4) Total Bilirubin 0.3 mg/dL (0.2-1.0) Aspartate Amino Transf (AST/SGOT) 22 U/L (15-37) Alanine Aminotransferase (ALT/SGPT) 12 U/L (14-59) Alkaline Phosphatase 87 U/L (46-116) ZM-[id number]-G-Type Natriuretic Peptide 608 pg/mL (0-449) Total Protein 6.5 g/dL (6.4-8.2) Albumin 2.6 g/dL (3.4-5.0) Albumin/Globulin Ratio 0.7 (1.0-1.7) Thyroid Stimulating Hormone (TSH) 1.331 uIU/mL (0.358-3.74) Cortisol AM Sample 10.9 ug/dL (4.3-22.4) Test 03/07/19 12:03 03/07/19 13:00 03/07/19 17:37 03/08/19 05:00 Glucose (Fingerstick) 213 mg/dL (70-99) 266 mg/dL (70-99) Cortisol PM Sample 16.8 ug/dL (3.1-16.7) Sodium Level 133 mmol/L (136-145) Potassium Level 3.7 mmol/L (3.5-5.1) Chloride Level 98 mmol/L (98-107) Carbon Dioxide Level 31 mmol/L (21-32) Anion Gap 4 (6-14) Blood Urea Nitrogen 21 mg/dL (7-20) Creatinine 0.8 mg/dL (0.6-1.0) Estimated GFR (Cockcroft-Gault) 68.2 BUN/Creatinine Ratio 26 (6-20) Glucose Level 169 mg/dL (70-99) Calcium Level 9.0 mg/dL (8.5-10.1) Magnesium Level 1.9 mg/dL (1.8-2.4) Total Bilirubin 0.2 mg/dL (0.2-1.0) Aspartate Amino Transf (AST/SGOT) 18 U/L (15-37) Alanine Aminotransferase (ALT/SGPT) 13 U/L (14-59) Alkaline Phosphatase 88 U/L (46-116) Total Protein 6.3 g/dL (6.4-8.2) Albumin 2.5 g/dL (3.4-5.0) Albumin/Globulin Ratio 0.7 (1.0-1.7) Laboratory Tests Test 03/07/19 12:03 03/07/19 13:00 03/07/19 17:37 03/08/19 05:00 Glucose (Fingerstick) 213 mg/dL (70-99) 266 mg/dL (70-99) Cortisol PM Sample 16.8 ug/dL (3.1-16.7) Sodium Level 133 mmol/L (136-145) Potassium Level 3.7 mmol/L (3.5-5.1) Chloride Level 98 mmol/L (98-107) Carbon Dioxide Level 31 mmol/L (21-32) Anion Gap 4 (6-14) Blood Urea Nitrogen 21 mg/dL (7-20) Creatinine 0.8 mg/dL (0.6-1.0) Estimated GFR (Cockcroft-Gault) 68.2 BUN/Creatinine Ratio 26 (6-20) Glucose Level 169 mg/dL (70-99) Calcium Level 9.0 mg/dL (8.5-10.1) Magnesium Level 1.9 mg/dL (1.8-2.4) Total Bilirubin 0.2 mg/dL (0.2-1.0) Aspartate Amino Transf (AST/SGOT) 18 U/L (15-37) Alanine Aminotransferase (ALT/SGPT) 13 U/L (14-59) Alkaline Phosphatase 88 U/L (46-116) Total Protein 6.3 g/dL (6.4-8.2) Albumin 2.5 g/dL (3.4-5.0) Albumin/Globulin Ratio 0.7 (1.0-1.7) Medications Current Medications Albuterol Sulfate (Ventolin Neb Soln) 2.5 mg 1X ONCE NEB Last administered on 03/05/19at 17:20; Start 03/05/19 at 16:30; Stop 03/05/19 at 16:33; Status DC Sodium Chloride 150 ml @ 50 mls/hr 1X ONCE IV Last administered on 03/05/19at 19:18; Start 03/05/19 at 18:15; Stop 03/05/19 at 21:14; Status DC Furosemide (Lasix) 40 mg 1X ONCE IVP Last administered on 03/05/19at 18:39; Start 03/05/19 at 18:15; Stop 03/05/19 at 18:20; Status DC Guaifenesin (Robitussin Dm) 10 ml PRN Q4HRS PRN PO COUGH Last administered on 03/07/19at 20:57; Start 03/06/19 at 04:15 Aspirin (Ecotrin) 81 mg DAILYWBKFT PO Last administered on 03/08/19at 08:51; Start 03/06/19 at 12:00 Atorvastatin Calcium (Lipitor) 20 mg QHS PO Last administered on 03/07/19at 20:58; Start 03/06/19 at 21:00 Insulin Glargine (Lantus Syringe) 6 unit QHS SQ Last administered on 03/06/19at 21:10; Start 03/06/19 at 21:00; Stop 03/07/19 at 07:29; Status DC Insulin Human Lispro (HumaLOG) TIDWMEALS SQ ; Start 03/06/19 at 12:00; Stop 03/07/19 at 07:29; Status DC Lisinopril (Prinivil) 40 mg DAILY PO Last administered on 03/06/19at 10:16; Start 03/06/19 at 10:00; Stop 03/06/19 at 15:01; Status DC Nystatin (Nystop) 1 ayan BID TP Last administered on 03/08/19at 08:52; Start 03/06/19 at 10:00 Polyethylene Glycol (miraLAX PACKET) 17 gm DAILY PO Last administered on 03/08/19at 08:52; Start 03/06/19 at 11:00 Aspirin (Ecotrin) 81 mg STK-MED ONCE PO ; Start 03/06/19 at 10:14; Stop 03/06/19 at 10:15; Status DC Potassium Chloride (Klor-Con) 40 meq 1X ONCE PO Last administered on 03/06/19at 10:46; Start 03/06/19 at 10:45; Stop 03/06/19 at 10:46; Status DC Potassium Chloride (Klor-Con) 10 meq 1X ONCE PO ; Start 03/06/19 at 14:00; Stop 03/06/19 at 11:42; Status DC Hydralazine HCl (Apresoline Inj) 10 mg PRN Q4HRS PRN IVP ELEVATED BP, SEE COMME NTS Last administered on 03/07/19at 04:23; Start 03/06/19 at 10:45 Sodium Chloride 250 ml @ 25 mls/hr 1X ONCE IV Last administered on 03/06/19at 13:27; Start 03/06/19 at 11:45; Stop 03/06/19 at 21:44; Status DC Furosemide (Lasix) 40 mg 1X ONCE IVP Last administered on 03/06/19at 12:06; Start 03/06/19 at 11:45; Stop 03/06/19 at 11:46; Status DC Potassium Chloride (Klor-Con) 40 meq 1X ONCE PO Last administered on 03/06/19at 14:02; Start 03/06/19 at 14:00; Stop 03/06/19 at 14:01; Status DC Furosemide (Lasix) 40 mg BID92 IVP Last administered on 03/08/19at 08:50; Start 03/06/19 at 14:00 Potassium Chloride (Klor-Con) 20 meq DAILYWBKFT PO Last administered on 03/08/19at 08:51; Start 03/07/19 at 08:00 Lorazepam (Ativan Inj) 0.5 mg PRN Q6HRS PRN IV ANXIETY / AGITATION Last administered on 03/07/19at 23:44; Start 03/06/19 at 15:15 Ondansetron HCl (Zofran) 4 mg PRN Q6HRS PRN IV NAUSEA/VOMITING, 1st CHOICE; Start 03/06/19 at 15:15 Prochlorperazine Edisylate (Compazine) 5 mg PRN Q6HRS PRN IV NAUSEA/VOMITING, 2nd CHOICE; Start 03/06/19 at 15:15 Famotidine (Pepcid Vial) 20 mg BID IVP Last administered on 03/08/19at 08:51; Start 03/06/19 at 21:00 Heparin Sodium (Porcine) (Heparin Sodium) 5,000 unit Q8HRS SQ Last administered on 03/07/19at 21:08; Start 03/06/19 at 15:30 Sodium Chloride (Normal Saline Flush) 3 ml QSHIFT PRN IV AFTER MEDS AND BLOOD DRAWS; Start 03/06/19 at 15:15 Docusate Sodium (Colace) 100 mg BID PO Last administered on 03/08/19at 08:50; Start 03/06/19 at 21:00 Insulin Glargine (Lantus Syringe) 20 unit QHS SQ Last administered on 03/07/19at 21:07; Start 03/07/19 at 21:00 Insulin Human Lispro (HumaLOG) 5 units TIDWMEALS SQ Last administered on 03/07/19at 17:39; Start 03/07/19 at 07:30 Magnesium Sulfate 50 ml @ 25 mls/hr 1X ONCE IV Last administered on 03/07/19at 09:15; Start 03/07/19 at 08:15; Stop 03/07/19 at 10:14; Status DC Potassium Chloride (Klor-Con) 40 meq 1X ONCE PO Last administered on 03/07/19at 09:14; Start 03/07/19 at 08:15; Stop 03/07/19 at 08:16; Status DC Albuterol Sulfate (Ventolin Neb Soln) 2.5 mg 1X ONCE NEB Last administered on 03/07/19at 15:54; Start 03/07/19 at 10:30; Stop 03/07/19 at 10:31; Status DC Potassium Chloride (Klor-Con) 40 meq 1X ONCE PO Last administered on 03/07/19at 13:48; Start 03/07/19 at 12:45; Stop 03/07/19 at 12:46; Status DC Sodium Chloride 200 ml @ 40 mls/hr 1X ONCE IV Last administered on 03/07/19at 15:32; Start 03/07/19 at 15:00; Stop 03/07/19 at 19:59; Status DC Albuterol Sulfate (Ventolin Neb Soln) 2.5 mg STK-MED ONCE .ROUTE ; Start 03/07/19 at 15:51; Stop 03/07/19 at 15:51; Status DC Active Scripts Active Polyethylene Glycol 3350 17 Gm Powd.pack 17 Gm PO DAILY 30 Days Nystop (Nystatin) 60 Gm Powder 1 Ayan TP BID 14 Days Humalog (Insulin Lispro) 100 Unit/1 Ml Insuln.pen 0 Units SQ TIDWMEALS 30 Days Lantus (Insulin Glargine,Hum.rec.anlog) 100 Unit/1 Ml Vial 6 Unit SQ QHS 30 Days Aspirin Ec (Aspirin) 81 Mg Tablet.dr 81 Mg PO DAILYWBKFT 30 Days Atorvastatin Calcium 20 Mg Tablet 20 Mg PO QHS 30 Days Oxycodone-Acetaminophen 5-325 (Oxycodone Hcl/Acetaminophen) 1 Each Tablet 1 Tab PO PRN Q6HRS PRN Reported Gabapentin (Gabapentin) 300 Mg Capsule 300 Mg PO HS PRN Take extra dose 2 hours after first dose if neuropathy persists Gabapentin (Gabapentin) 300 Mg Capsule 300 Mg PO HS Glimepiride 4 Mg Tablet 1 Tab PO BID Lisinopril 40 Mg Tablet 40 Mg PO DAILY Vitals/I & O Vital Sign - Last 24 Hours 03/07/19 03/07/19 03/07/19 03/07/19 10:00 11:00 12:00 12:00 Temp 97.5 97.5 Pulse 75 62 70 Resp 24 24 24 B/P (MAP) 152/58 (89) 145/74 (97) 153/69 (97) Pulse Ox 97 96 96 O2 Delivery Room Air Room Air Room Air Room Air 03/07/19 03/07/19 03/07/19 03/07/19 13:00 14:00 15:00 15:55 Pulse 62 62 62 Resp 24 24 24 B/P (MAP) 154/61 (92) 140/60 (86) 139/61 (87) Pulse Ox 96 96 96 96 O2 Delivery Room Air Room Air Room Air Room Air 03/07/19 03/07/19 03/07/19 03/07/19 16:00 16:00 17:00 18:00 Temp 97.7 97.7 Pulse 70 70 89 Resp 24 24 24 B/P (MAP) 141/86 (104) 147/62 (90) 163/89 (113) Pulse Ox 96 95 95 O2 Delivery Room Air Room Air Room Air Room Air 03/07/19 03/07/19 03/07/19 03/07/19 19:00 20:00 20:00 21:00 Temp 97.8 97.8 Pulse 68 67 69 Resp 16 18 16 B/P (MAP) 156/53 (87) 148/77 (100) 178/82 (114) Pulse Ox 98 97 97 O2 Delivery Room Air Room Air Room Air Room Air 03/07/19 03/07/19 03/08/19 03/08/19 22:00 23:00 00:00 00:00 Temp 98.2 98.2 Pulse 66 70 60 Resp 14 14 14 B/P (MAP) 152/75 (100) 169/70 (103) 164/84 (110) Pulse Ox 97 97 96 O2 Delivery Room Air Room Air Room Air Room Air 03/08/19 03/08/19 03/08/19 03/08/19 01:00 02:00 03:00 04:00 Pulse 64 57 57 Resp 14 14 14 B/P (MAP) 135/66 (89) 129/66 (87) 143/68 (93) Pulse Ox 96 96 96 O2 Delivery Room Air Room Air Room Air Room Air 03/08/19 03/08/19 03/08/19 04:00 05:00 06:00 Temp 98.2 98.2 Pulse 55 56 67 Resp 14 14 18 B/P (MAP) 146/69 (94) 170/78 (108) 160/92 (114) Pulse Ox 95 96 96 O2 Delivery Room Air Room Air Room Air Intake and Output 03/07/19 03/07/19 03/08/19 15:00 23:00 07:00 Intake Total 540 ml 740 ml 440 ml Output Total 1450 ml 700 ml Balance -910 ml 40 ml 440 ml KARYN NORWOOD MD Mar 08, 2019 09:29
[2019-03-08] MEDS: INSULIN LISPRO 300 UNITS/3 ML VIAL. SQ SCH ×3 (09:34→17:42)
--- NOTE | 2019-03-08 10:23 | PDOC ---
[facility] 03/08/19 1023: CARDIO Progress Notes Date and Time Date of Service 03/08/2019 Time of Evaluation 0840 Subjective Subjective: No Chest Pain, No shortness of breath, No Palpitations, Other (no pain, but still does not feel well) Vitals Vitals Vital Signs Date Time Temp Pulse Resp B/P (MAP) Pulse Ox O2 Delivery O2 Flow Rate FiO2 03/08/19 06:00 67 18 160/92 (114) 96 Room Air 03/08/19 04:00 98.2 98.2 Weight Weight [ ] Input and Output Intake and Output Intake and Output 03/08/19 07:00 Intake Total 1720 ml Output Total 2150 ml Balance -430 ml Intake Oral 1520 ml IV Total 200 ml Output Urine Total 2150 ml # Voids 1 # Bowel Movements 1 Laboratory Labs Laboratory Tests Test 03/07/19 12:03 03/07/19 13:00 03/07/19 17:37 03/08/19 05:00 Glucose (Fingerstick) 213 mg/dL (70-99) 266 mg/dL (70-99) Cortisol PM Sample 16.8 ug/dL (3.1-16.7) Sodium Level 133 mmol/L (136-145) Potassium Level 3.7 mmol/L (3.5-5.1) Chloride Level 98 mmol/L (98-107) Carbon Dioxide Level 31 mmol/L (21-32) Anion Gap 4 (6-14) Blood Urea Nitrogen 21 mg/dL (7-20) Creatinine 0.8 mg/dL (0.6-1.0) Estimated GFR (Cockcroft-Gault) 68.2 BUN/Creatinine Ratio 26 (6-20) Glucose Level 169 mg/dL (70-99) Calcium Level 9.0 mg/dL (8.5-10.1) Magnesium Level 1.9 mg/dL (1.8-2.4) Total Bilirubin 0.2 mg/dL (0.2-1.0) Aspartate Amino Transf (AST/SGOT) 18 U/L (15-37) Alanine Aminotransferase (ALT/SGPT) 13 U/L (14-59) Alkaline Phosphatase 88 U/L (46-116) Total Protein 6.3 g/dL (6.4-8.2) Albumin 2.5 g/dL (3.4-5.0) Albumin/Globulin Ratio 0.7 (1.0-1.7) Review of Systems Constitutional: yes: alert, oriented Ears/Nose/Throat: Yes: no symptom reported Eyes: Yes: no symptom reported Pulmonary: Yes dyspnea Cardiovascular: Yes edema Gastrointestional: Yes: no symptom reported Genitourinary: Yes: no symptom reported Musculoskeletal: Yes: no symptom reported Skin: Yes no symptom reported Psychiatric/Neurological: Yes: no symptom reported Physical Exam HEENT: Neck Supple W Full Motion Chest: Symmetric LUNGS: Other (diffuse faint wheeze) Heart: irregularly irregular (AFIB) Abdomen: Soft N/T Extremities: No Calf Tenderness, Other (2+ bilateral LE pitting edema) Neurology: alert, oriented, follow commands Assessment Assessment 1. Hyponatremia: much better after. Nephrology following 2. Acute on chronic diastolic CHF: likely driven by labile BP 3. Weakness: due to hyponatremia 4. Moderate pulmonary HTN: EF and WM nml. 5. Permanent AFIB with bradycardia: lowest mid 40s no pauses mainly while asle ep. This is known and [facility]OT was arrange but pt went to SNU. Rate controlled mean at 70s 6. HTN: labile episode 7. Diabetes, II; takes metformin at home. per PCP 8. H/o CVA 9. Chronic LE edema, venous insufficiency 10. Hypokalemia/hypomagnesemia: resolved 11. Acute bronchitis: defer to PCP Recommendations 1. Avoid AV abby blocking agents. Continue lasix therapy, transition to PO tomorrow. Restart home lisinopril, monitor BP trend. May add norvasc if BP trend remains elevated. 2. MCOT 3. ASA, statin. Patient has declined OAC in the past 4. F/u with Dr. Wells as scheduled on 03/28 at 9:45 AM 5. PT/OT OLGA WELLS MD 03/09/19 0759: CARDIO Progress Notes Assessment Assessment Patient seen and examined 03/08/19. Agree with GRILL ATTENDANT's assessment and plan. Ac on chr diastolic HF better compensated No significant pauses noted on tele Agree with event monitor as outpatient [facility] APRN Mar 08, 2019 10:23 OLGA WELLS MD Mar 09, 2019 07:59
--- NOTE | 2019-03-08 10:57 | NUR ---
SS following up with discharge planning. PT/OT evaluated and recommended correction unit. SS contacted pt's daughter, Celeste, to discuss correction unit and discharge planning. Pt's daughter agreeable to correction unit. Pt's daughter declined [facility] and requested referral be phoned and faxed to [facility], ; fax [phone]. SS phoned and faxed referral to [facility]. SS will await acceptance decision and will proceed accordingly.
--- NOTE | 2019-03-08 11:03 | PDOC ---
Renal-Progress Notes Subjective Notes Notes NO NEW COMPLAINTS History of Present Illness Hx of present illness STABLE Vitals Vitals Vital Signs Date Time Temp Pulse Resp B/P (MAP) Pulse Ox O2 Delivery O2 Flow Rate FiO2 03/08/19 08:00 Room Air 03/08/19 06:00 67 18 160/92 (114) 96 03/08/19 04:00 98.2 98.2 Weight Weight [ ] I.O. Intake and Output Intake and Output 03/08/19 07:00 Intake Total 1720 ml Output Total 2150 ml Balance -430 ml Intake Oral 1520 ml IV Total 200 ml Output Urine Total 2150 ml # Voids 1 # Bowel Movements 1 Labs Labs Laboratory Tests Test 03/07/19 12:03 03/07/19 13:00 03/07/19 17:37 03/08/19 05:00 Glucose (Fingerstick) 213 mg/dL (70-99) 266 mg/dL (70-99) Cortisol PM Sample 16.8 ug/dL (3.1-16.7) Sodium Level 133 mmol/L (136-145) Potassium Level 3.7 mmol/L (3.5-5.1) Chloride Level 98 mmol/L (98-107) Carbon Dioxide Level 31 mmol/L (21-32) Anion Gap 4 (6-14) Blood Urea Nitrogen 21 mg/dL (7-20) Creatinine 0.8 mg/dL (0.6-1.0) Estimated GFR (Cockcroft-Gault) 68.2 BUN/Creatinine Ratio 26 (6-20) Glucose Level 169 mg/dL (70-99) Calcium Level 9.0 mg/dL (8.5-10.1) Magnesium Level 1.9 mg/dL (1.8-2.4) Total Bilirubin 0.2 mg/dL (0.2-1.0) Aspartate Amino Transf (AST/SGOT) 18 U/L (15-37) Alanine Aminotransferase (ALT/SGPT) 13 U/L (14-59) Alkaline Phosphatase 88 U/L (46-116) Total Protein 6.3 g/dL (6.4-8.2) Albumin 2.5 g/dL (3.4-5.0) Albumin/Globulin Ratio 0.7 (1.0-1.7) Review of Systems Constitutional: yes: alert, oriented Ears/Nose/Throat: Yes: no symptom reported Eyes: Yes: no symptom reported Pulmonary: Yes dyspnea Cardiovascular: Yes edema Gastrointestional: Yes: no symptom reported Genitourinary: Yes: no symptom reported Musculoskeletal: Yes: no symptom reported Skin: Yes no symptom reported Psychiatric/Neurological: Yes: no symptom reported Physical Exam General Appearance: no apparent distress Respiratory: decreased breath sounds Heart: S1S2 Genitourinary: bladder flat Extremities: edema Neurology: alert, oriented, follow commands Musculoskeletal: Osteoarthritis Assessment Assessment IMP SEVERE HYPONATREMIA-NEARLY RESOLVED SEVERE HYPOKALEMIA-CORRECTED POORLY CONTROLLED DM II HX OF HTN-IMPROVED LE EDEMA-BETTER URI PLAN CHANGE LASIX TO PO CONTROL BG WILL SIGN OFF LUIS HUTCHISON MD Mar 08, 2019 11:03
[2019-03-08] MEDS: LISINOPRIL 20 MG TABLET PO SCH (12:38)
[2019-03-08] MEDS: FUROSEMIDE 40 MG TABLET. PO SCH (16:20)
[2019-03-08] MEDS: guaiFENesin DM 200MG/20MG 10 ML SYRUP PO PRN ×2 (18:13→21:23)
[2019-03-08] MEDS: ATORVASTATIN CALCIUM 20 MG TABLET PO SCH (21:23)
[2019-03-08] MEDS: ZOLPIDEM 5 MG TABLET. PO PRN (21:23)
[2019-03-08] MEDS: INSULIN GLARGINE SYRINGE. SQ SCH (21:27)
[2019-03-09] VITALS (8 sets, daily range): BP systolic 155–196; BP diastolic 64–89
[2019-03-09 05:09] LABS: ALBUMIN 2.6 g/dL (3.4-5.0); CALCIUM 9.2 mg/dL (8.5-10.1); CREATININE 0.7 mg/dL (0.6-1.0); GFR 79.5; PHOSPHORUS 2.4 mg/dL (2.6-4.7)
[2019-03-09] MEDS: HEPARIN for SUB-Q USE 5,000 UNIT/ML VIAL. SQ SCH ×3 (06:00→21:26)
[2019-03-09] MEDS: DOCUSATE SODIUM 100 MG CAPSULE. PO SCH ×2 (08:38→21:21)
[2019-03-09] MEDS: FUROSEMIDE 40 MG TABLET. PO SCH ×2 (08:38→15:11)
[2019-03-09] MEDS: LISINOPRIL 20 MG TABLET PO SCH (08:38)
[2019-03-09] MEDS: ASPIRIN ENTERIC COATED 81 MG TABLET.DR. PO SCH (08:38)
[2019-03-09] MEDS: POTASSIUM CHLORIDE 20 MEQ TABLET.ER. PO SCH (08:38)
[2019-03-09] MEDS: NYSTATIN TOPICAL POWDER 15GM BOTTLE. TP SCH ×2 (08:39→21:26)
[2019-03-09] MEDS: POLYETHYLENE GLYCOL 3350 17 GM PACKET. PO SCH (08:39)
[2019-03-09] MEDS: FAMOTIDINE 20 MG/2 ML VIAL IVP SCH (08:39)
[2019-03-09] MEDS: guaiFENesin DM 200MG/20MG 10 ML SYRUP PO PRN ×2 (08:41→15:16)
[2019-03-09] MEDS: INSULIN LISPRO 300 UNITS/3 ML VIAL. SQ SCH ×3 (08:51→17:42)
[2019-03-09] MEDS ORDERED: FUROSEMIDE 40 MG/4 ML VIAL. IVP SCH (09:00)
--- NOTE | 2019-03-09 10:38 | PDOC ---
PROGRESS NOTES History of Present Illness History of Present Illness VTE Prophylaxis Ordered VTE Prophylaxis Devices: No VTE Pharmacological Prophylaxi: Contraindicated Assessment/Plan Assessment/Plan Impression: Hyponatremia, severe, hyponatremia has been reported with gabapentin therapy diff dx SIAHD, Hypervolemia, chf, hepatic disease, renal disease morbid obesity cough ? 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 2016 a-fib HX DIABETES HYPERTENSION Mild to moderate tricuspid regurgitation. recent echo , PA pressure was estimated at 52 mmHg. c/w mod-severe pulmonary hypertension hypokalemia METABOLIC ENCEPHALOPATHY severe protein-caloric malnutrition anemia with heme pos stool 03/09 ADMITTED icu bed hypertonic NS Nephrology FOLLOWING hold gabapentin and narcotics serum and urine osmolality frequent lytes hold lisinopril cardiology consult replete k po AGAIN k at 1700 03/06=3.5 MCOT could be arrange to worn in [facility] AM, PM CORTISOL GI consult 03/08 suspect SIADH NA 133 03/09 HEME POS STOOL, ANEMIA NOTED GI CONSULT 34 min cc time Vitals Vitals Vital Signs Date Time Temp Pulse Resp B/P (MAP) Pulse Ox O2 Delivery O2 Flow Rate FiO2 03/09/19 08:38 65 173/89 03/09/19 08:15 Room Air 03/09/19 08:15 97.7 20 97.7 03/09/19 04:00 95 Physical Exam General: Alert, Oriented X3 (MILD CONFUSION), Cooperative, No acute distress Heart: Regular rate, Other (AFIB rate controlled) Lungs: Clear, Other Abdomen: Normal bowel sounds, Soft, No tenderness, No hepatosplenomegaly Extremities: No cyanosis, Other (3+ bilateral LE edema) Skin: No breakdown, Other (bilateral LE venous dermatitis) Labs LABS Laboratory Tests Test 03/08/19 12:34 03/08/19 17:04 03/08/19 21:22 03/09/19 04:30 Glucose (Fingerstick) 279 mg/dL (70-99) 215 mg/dL (70-99) 187 mg/dL (70-99) Sodium Level 131 mmol/L (136-145) Potassium Level 4.0 mmol/L (3.5-5.1) Chloride Level 96 mmol/L (98-107) Carbon Dioxide Level 33 mmol/L (21-32) Anion Gap 2 (6-14) Blood Urea Nitrogen 20 mg/dL (7-20) Creatinine 0.7 mg/dL (0.6-1.0) Estimated GFR (Cockcroft-Gault) 79.5 Glucose Level 235 mg/dL (70-99) Calcium Level 9.2 mg/dL (8.5-10.1) Phosphorus Level 2.4 mg/dL (2.6-4.7) Albumin 2.6 g/dL (3.4-5.0) Test 03/09/19 08:44 Glucose (Fingerstick) 192 mg/dL (70-99) Assessment and Plan Assessmemt and Plan Problems Medical Problems: (1) Fatigue Status: Acute (2) Hyponatremia Status: Acute Comment Review of Relevant I have reviewed the following items imani (where applicable) has been applied. Labs Laboratory Tests Test 03/07/19 12:03 03/07/19 13:00 03/07/19 17:37 03/08/19 05:00 Glucose (Fingerstick) 213 mg/dL (70-99) 266 mg/dL (70-99) Cortisol PM Sample 16.8 ug/dL (3.1-16.7) Sodium Level 133 mmol/L (136-145) Potassium Level 3.7 mmol/L (3.5-5.1) Chloride Level 98 mmol/L (98-107) Carbon Dioxide Level 31 mmol/L (21-32) Anion Gap 4 (6-14) Blood Urea Nitrogen 21 mg/dL (7-20) Creatinine 0.8 mg/dL (0.6-1.0) Estimated GFR (Cockcroft-Gault) 68.2 BUN/Creatinine Ratio 26 (6-20) Glucose Level 169 mg/dL (70-99) Calcium Level 9.0 mg/dL (8.5-10.1) Magnesium Level 1.9 mg/dL (1.8-2.4) Total Bilirubin 0.2 mg/dL (0.2-1.0) Aspartate Amino Transf (AST/SGOT) 18 U/L (15-37) Alanine Aminotransferase (ALT/SGPT) 13 U/L (14-59) Alkaline Phosphatase 88 U/L (46-116) Total Protein 6.3 g/dL (6.4-8.2) Albumin 2.5 g/dL (3.4-5.0) Albumin/Globulin Ratio 0.7 (1.0-1.7) Test 03/08/19 09:27 03/08/19 12:34 03/08/19 17:04 03/08/19 21:22 Glucose (Fingerstick) 194 mg/dL (70-99) 279 mg/dL (70-99) 215 mg/dL (70-99) 187 mg/dL (70-99) Test 03/09/19 04:30 03/09/19 08:44 Sodium Level 131 mmol/L (136-145) Potassium Level 4.0 mmol/L (3.5-5.1) Chloride Level 96 mmol/L (98-107) Carbon Dioxide Level 33 mmol/L (21-32) Anion Gap 2 (6-14) Blood Urea Nitrogen 20 mg/dL (7-20) Creatinine 0.7 mg/dL (0.6-1.0) Estimated GFR (Cockcroft-Gault) 79.5 Glucose Level 235 mg/dL (70-99) Calcium Level 9.2 mg/dL (8.5-10.1) Phosphorus Level 2.4 mg/dL (2.6-4.7) Albumin 2.6 g/dL (3.4-5.0) Glucose (Fingerstick) 192 mg/dL (70-99) Laboratory Tests Test 03/08/19 12:34 03/08/19 17:04 03/08/19 21:22 03/09/19 04:30 Glucose (Fingerstick) 279 mg/dL (70-99) 215 mg/dL (70-99) 187 mg/dL (70-99) Sodium Level 131 mmol/L (136-145) Potassium Level 4.0 mmol/L (3.5-5.1) Chloride Level 96 mmol/L (98-107) Carbon Dioxide Level 33 mmol/L (21-32) Anion Gap 2 (6-14) Blood Urea Nitrogen 20 mg/dL (7-20) Creatinine 0.7 mg/dL (0.6-1.0) Estimated GFR (Cockcroft-Gault) 79.5 Glucose Level 235 mg/dL (70-99) Calcium Level 9.2 mg/dL (8.5-10.1) Phosphorus Level 2.4 mg/dL (2.6-4.7) Albumin 2.6 g/dL (3.4-5.0) Test 03/09/19 08:44 Glucose (Fingerstick) 192 mg/dL (70-99) Medications Current Medications Albuterol Sulfate (Ventolin Neb Soln) 2.5 mg 1X ONCE NEB Last administered on 03/05/19at 17:20; Start 03/05/19 at 16:30; Stop 03/05/19 at 16:33; Status DC Sodium Chloride 150 ml @ 50 mls/hr 1X ONCE IV Last administered on 03/05/19at 19:18; Start 03/05/19 at 18:15; Stop 03/05/19 at 21:14; Status DC Furosemide (Lasix) 40 mg 1X ONCE IVP Last administered on 03/05/19at 18:39; Start 03/05/19 at 18:15; Stop 03/05/19 at 18:20; Status DC Guaifenesin (Robitussin Dm) 10 ml PRN Q4HRS PRN PO COUGH Last administered on 03/09/19at 08:41; Start 03/06/19 at 04:15 Aspirin (Ecotrin) 81 mg DAILYWBKFT PO Last administered on 03/09/19at 08:38; Start 03/06/19 at 12:00 Atorvastatin Calcium (Lipitor) 20 mg QHS PO Last administered on 03/08/19at 21:23; Start 03/06/19 at 21:00 Insulin Glargine (Lantus Syringe) 6 unit QHS SQ Last administered on 03/06/19at 21:10; Start 03/06/19 at 21:00; Stop 03/07/19 at 07:29; Status DC Insulin Human Lispro (HumaLOG) TIDWMEALS SQ ; Start 03/06/19 at 12:00; Stop 03/07/19 at 07:29; Status DC Lisinopril (Prinivil) 40 mg DAILY PO Last administered on 03/06/19at 10:16; Start 03/06/19 at 10:00; Stop 03/06/19 at 15:01; Status DC Nystatin (Nystop) 1 ayan BID TP Last administered on 03/09/19at 08:39; Start 03/06/19 at 10:00 Polyethylene Glycol (miraLAX PACKET) 17 gm DAILY PO Last administered on 03/08/19at 08:52; Start 03/06/19 at 11:00 Aspirin (Ecotrin) 81 mg STK-MED ONCE PO ; Start 03/06/19 at 10:14; Stop 03/06/19 at 10:15; Status DC Potassium Chloride (Klor-Con) 40 meq 1X ONCE PO Last administered on 03/06/19at 10:46; Start 03/06/19 at 10:45; Stop 03/06/19 at 10:46; Status DC Potassium Chloride (Klor-Con) 10 meq 1X ONCE PO ; Start 03/06/19 at 14:00; Stop 03/06/19 at 11:42; Status DC Hydralazine HCl (Apresoline Inj) 10 mg PRN Q4HRS PRN IVP ELEVATED BP, SEE COMMENTS Last administered on 03/07/19at 04:23; Start 03/06/19 at 10:45 Sodium Chloride 250 ml @ 25 mls/hr 1X ONCE IV Last administered on 03/06/19at 13:27; Start 03/06/19 at 11:45; Stop 03/06/19 at 21:44; Status DC Furosemide (Lasix) 40 mg 1X ONCE IVP Last administered on 03/06/19at 12:06; Start 03/06/19 at 11:45; Stop 03/06/19 at 11:46; Status DC Potassium Chloride (Klor-Con) 40 meq 1X ONCE PO Last administered on 03/06/19at 14:02; Start 03/06/19 at 14:00; Stop 03/06/19 at 14:01; Status DC Furosemide (Lasix) 40 mg [id number] IVP Last administered on 03/08/19at 08:50; Start 03/06/19 at 14:00; Stop 03/08/19 at 10:19; Status DC Potassium Chloride (Klor-Con) 20 meq DAILYWBKFT PO Last administered on 03/09/19at 08:38; Start 03/07/19 at 08:00 Lorazepam (Ativan Inj) 0.5 mg PRN Q6HRS PRN IV ANXIETY / AGITATION Last administered on 03/07/19at 23:44; Start 03/06/19 at 15:15 Ondansetron HCl (Zofran) 4 mg PRN Q6HRS PRN IV NAUSEA/VOMITING, 1st CHOICE; Start 03/06/19 at 15:15 Prochlorperazine Edisylate (Compazine) 5 mg PRN Q6HRS PRN IV NAUSEA/VOMITING, 2nd CHOICE; Start 03/06/19 at 15:15 Famotidine (Pepcid Vial) 20 mg BID IVP Last administered on 03/09/19at 08:39; Start 03/06/19 at 21:00; Stop 03/09/19 at 09:40; Status DC Heparin Sodium (Porcine) (Heparin Sodium) 5,000 unit Q8HRS SQ Last administered on 03/09/19at 06:00; Start 03/06/19 at 15:30 Sodium Chloride (Normal Saline Flush) 3 ml QSHIFT PRN IV AFTER MEDS AND BLOOD DRAWS; Start 03/06/19 at 15:15 Docusate Sodium (Colace) 100 mg BID PO Last administered on 03/09/19at 08:38; Start 03/06/19 at 21:00 Insulin Glargine (Lantus Syringe) 20 unit QHS SQ Last administered on 03/07/19at 21:07; Start 03/07/19 at 21:00; Stop 03/08/19 at 12:30; Status DC Insulin Human Lispro (HumaLOG) 5 units TIDWMEALS SQ Last administered on 03/09/19at 08:51; Start 03/07/19 at 07:30 Magnesium Sulfate 50 ml @ 25 mls/hr 1X ONCE IV Last administered on 03/07/19at 09:15; Start 03/07/19 at 08:15; Stop 03/07/19 at 10:14; Status DC Potassium Chloride (Klor-Con) 40 meq 1X ONCE PO Last administered on 03/07/19at 09:14; Start 03/07/19 at 08:15; Stop 03/07/19 at 08:16; Status DC Albuterol Sulfate (Ventolin Neb Soln) 2.5 mg 1X ONCE NEB Last administered on 03/07/19at 15:54; Start 03/07/19 at 10:30; Stop 03/07/19 at 10:31; Status DC Potassium Chloride (Klor-Con) 40 meq 1X ONCE PO Last administered on 03/07/19at 13:48; Start 03/07/19 at 12:45; Stop 03/07/19 at 12:46; Status DC Sodium Chloride 200 ml @ 40 mls/hr 1X ONCE IV Last administered on 03/07/19at 15:32; Start 03/07/19 at 15:00; Stop 03/07/19 at 19:59; Status DC Albuterol Sulfate (Ventolin Neb Soln) 2.5 mg STK-MED ONCE .ROUTE ; Start 03/07/19 at 15:51; Stop 03/07/19 at 15:51; Status DC Furosemide (Lasix) 40 mg DAILY IVP ; Start 03/09/19 at 09:00; Stop 03/08/19 at 11:07; Status DC Lisinopril (Prinivil) 40 mg DAILY PO Last administered on 03/09/19at 08:38; Start 03/08/19 at 11:00 Furosemide (Lasix) 40 mg [id number] PO Last administered on 03/09/19at 08:38; Start 03/08/19 at 16:00 Insulin Glargine (Lantus Syringe) 23 unit QHS SQ Last administered on 03/08/19at 21:27; Start 03/08/19 at 21:00 Zolpidem Tartrate (Ambien) 5 mg PRN QHS PRN PO INSOMNIA Last administered on 03/08/19at 21:23; Start 03/08/19 at 18:30 Famotidine (Pepcid Vial) 20 mg DAILY IVP ; Start 03/10/19 at 09:00 Active Scripts Active Polyethylene Glycol 3350 17 Gm Powd.pack 17 Gm PO DAILY 30 Days Nystop (Nystatin) 60 Gm Powder 1 Ayan TP BID 14 Days Humalog (Insulin Lispro) 100 Unit/1 Ml Insuln.pen 0 Units SQ TIDWMEALS 30 Days Lantus (Insulin Glargine,Hum.rec.anlog) 100 Unit/1 Ml Vial 6 Unit SQ QHS 30 Days Aspirin Ec (Aspirin) 81 Mg Tablet.dr 81 Mg PO DAILYWBKFT 30 Days Atorvastatin Calcium 20 Mg Tablet 20 Mg PO QHS 30 Days Oxycodone-Acetaminophen 5-325 (Oxycodone Hcl/Acetaminophen) 1 Each Tablet 1 Tab PO PRN Q6HRS PRN Reported Gabapentin (Gabapentin) 300 Mg Capsule 300 Mg PO HS PRN Take extra dose 2 hours after first dose if neuropathy persists Gabapentin (Gabapentin) 300 Mg Capsule 300 Mg PO HS Glimepiride 4 Mg Tablet 1 Tab PO BID Lisinopril 40 Mg Tablet 40 Mg PO DAILY Vitals/I & O Vital Sign - Last 24 Hours 03/08/19 03/08/19 03/08/19 03/08/19 11:00 12:38 16:34 20:00 Temp 97.6 97.6 Pulse 80 79 63 60 Resp 16 15 16 B/P (MAP) 128/67 164/74 (104) 173/87 (115) Pulse Ox 96 O2 Delivery Room Air Room Air Room Air 03/08/19 03/09/19 03/09/19 03/09/19 20:00 00:26 04:00 08:15 Temp 97.8 97.7 97.8 97.7 Pulse 59 61 65 Resp 14 16 20 B/P (MAP) 155/64 (94) 155/71 (99) 173/89 (117) Pulse Ox 96 95 O2 Delivery Room Air Room Air Room Air Room Air 03/09/19 03/09/19 08:15 08:38 Pulse 65 B/P (MAP) 173/89 O2 Delivery Room Air Intake and Output 03/08/19 03/08/19 03/09/19 15:00 23:00 07:00 Intake Total 120 ml Output Total 400 ml 600 ml Balance -400 ml -480 ml KARYN NORWOOD MD Mar 09, 2019 10:38
[2019-03-09 10:44] LABS: FECAL OB PT POSITIVE (NEG)
[2019-03-09] MEDS ORDERED: SODIUM PHOSPHATE 20 MMOL in IV NORMAL SALINE 250ML 250 ML IV ONE (11:00)
[2019-03-09] MEDS: hydrALAZINE 20 MG/ML VIAL. IVP PRN (15:12)
[2019-03-09] MEDS: ATORVASTATIN CALCIUM 20 MG TABLET PO SCH (21:21)
[2019-03-09] MEDS: INSULIN GLARGINE SYRINGE. SQ SCH (22:02)
[2019-03-10] VITALS (7 sets, daily range): BP systolic 103–168; BP diastolic 51–75
--- NOTE | 2019-03-10 05:24 | NUR ---
Found intact tiny blisters on pt's R inner buttock, pt stated she had shingles 2 weeks ago and was taking medicines. notified Dr. Cueva.
[2019-03-10 05:27] LABS: BASO # 0.1 x10^3/uL (0.0-0.2); BASO % 1 % (0-3); EOS # 0.1 x10^3/uL (0.0-0.7); EOS % 1 % (0-3); HEMATOCRIT 29.3 % (36.0-47.0); HEMOGLOBIN 9.7 g/dL (12.0-15.5); LYMPH # 2.1 x10^3/uL (1.0-4.8); LYMPH % 32 % (24-48); MEAN CORPUSCULAR HEMOGLOBIN 28 pg (25-35); MEAN CORPUSCULAR HGB CONC 33 g/dL (31-37); MEAN CORPUSCULAR VOLUME 84 fL (79-100); MONO # 0.6 x10^3/uL (0.0-1.1); MONO % 9 % (0-9); NEUT # 3.9 x10^3/uL (1.8-7.7); NEUT % 58 % (31-73); PLATELET COUNT 244 x10^3/uL (140-400); RED BLOOD COUNT 3.49 x10^6/uL (3.50-5.40); RED CELL DISTRIBUTION WIDTH 15.2 % (11.5-14.5); WHITE BLOOD COUNT 6.8 x10^3/uL (4.0-11.0)
[2019-03-10] MEDS: HEPARIN for SUB-Q USE 5,000 UNIT/ML VIAL. SQ SCH ×3 (05:35→21:51)
--- NOTE | 2019-03-10 05:35 | NUR ---
held heparin this morning due to pt's occult stool positive, waiting for GI doctor to see pt.
[2019-03-10 05:39] LABS: ALBUMIN 2.7 g/dL (3.4-5.0); ALBUMIN/GLOBULIN RATIO 0.6 (1.0-1.7); CALCIUM 9.6 mg/dL (8.5-10.1); CREATININE 0.8 mg/dL (0.6-1.0); GFR 68.2; POTASSIUM 3.7 mmol/L (3.5-5.1); TOTAL BILIRUBIN 0.3 mg/dL (0.2-1.0); TOTAL PROTEIN 6.9 g/dL (6.4-8.2)
--- NOTE | 2019-03-10 08:23 | PDOC ---
PROGRESS NOTES Chief Complaint Chief Complaint Hyponatremia, severe, hyponatremia has been reported with gabapentin therapy diff dx SIAHD, Hypervolemia, chf, hepatic disease, renal disease morbid obesity cough ? 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 2016 A-fib HX DIABETES HYPERTENSION Mild to moderate tricuspid regurgitation. Mod-severe pulmonary hypertension Hypokalemia METABOLIC ENCEPHALOPATHY severe protein-caloric malnutrition anemia with heme pos stool 03/09 Zoster rash right buttocks ADMITTED icu bed hypertonic NS Nephrology FOLLOWING hold gabapentin and narcotics serum and urine osmolality frequent lytes hold lisinopril cardiology consult replete k po AGAIN k at 1700 03/06=3.5 MCOT could be arrange to worn in SNU AM, PM CORTISOL GI consult 34 min time History of Present Illness History of Present Illness Ms Cole is an 83 yo F w/ PMHx Afib, HTN, HLD, prior CVA, cervical cancer, OA, DM2, hyperparathyroidism who was admitted for complains of weakness. She was just discharge from [facility] last Monday and was actually doing well able to walk without difficulty but has been feeling onset of chest congestion. No fever or chills. No recent antibiotics. Reports that she has been becoming progressively weak in the last few days prior to admission 03/05.. No orthopnea no MELO or SOA but positive for nonrproductive cough and increasing leg swelling. Denies any chest pain, nausea, vomiting or diarrhea. She uses a walker and gets visited by home health. She did have 1 home health visit since SNF discharge. Admitted for hyponatremia,metabolic encephalopathy, LUIS EDUARDO, seen by Cardiology and nephrology in consultation. 03/08 suspect SIADH NA 133 03/09 HEME POS STOOL, ANEMIA NOTED GI CONSULT, Transferred from ICU to med/tele Rash on her right buttocks today, painful, vesicular. Has previously had shingles. She still has dark stools. Shortness of breath improved. Sodium stable. Vitals Vitals Vital Signs Date Time Temp Pulse Resp B/P (MAP) Pulse Ox O2 Delivery O2 Flow Rate FiO2 03/10/19 04:00 97.9 77 20 131/68 (89) 95 Room Air 97.9 Physical Exam General: Alert, Oriented X3 (MILD CONFUSION), Cooperative, No acute distress Heart: Regular rate, Other (AFIB rate controlled) Lungs: Clear, Other Abdomen: Normal bowel sounds, Soft, No tenderness, No hepatosplenomegaly Extremities: No cyanosis, Other (3+ bilateral LE edema) Skin: No breakdown, Other (bilateral LE venous dermatitis) Labs LABS Laboratory Tests Test 03/09/19 08:44 03/09/19 10:21 03/09/19 11:38 03/09/19 17:07 Glucose (Fingerstick) 192 mg/dL (70-99) 202 mg/dL (70-99) 261 mg/dL (70-99) Stool Occult Blood Positive (NEG) Test 03/09/19 20:31 03/10/19 03:40 03/10/19 07:34 Glucose (Fingerstick) 281 mg/dL (70-99) 221 mg/dL (70-99) White Blood Count 6.8 x10^3/uL (4.0-11.0) Red Blood Count 3.49 x10^6/uL (3.50-5.40) Hemoglobin 9.7 g/dL (12.0-15.5) Hematocrit 29.3 % (36.0-47.0) Mean Corpuscular Volume 84 fL (79-100) Mean Corpuscular Hemoglobin 28 pg (25-35) Mean Corpuscular Hemoglobin Concent 33 g/dL (31-37) Red Cell Distribution Width 15.2 % (11.5-14.5) Platelet Count 244 x10^3/uL (140-400) Neutrophils (%) (Auto) 58 % (31-73) Lymphocytes (%) (Auto) 32 % (24-48) Monocytes (%) (Auto) 9 % (0-9) Eosinophils (%) (Auto) 1 % (0-3) Basophils (%) (Auto) 1 % (0-3) Neutrophils # (Auto) 3.9 x10^3/uL (1.8-7.7) Lymphocytes # (Auto) 2.1 x10^3/uL (1.0-4.8) Monocytes # (Auto) 0.6 x10^3/uL (0.0-1.1) Eosinophils # (Auto) 0.1 x10^3/uL (0.0-0.7) Basophils # (Auto) 0.1 x10^3/uL (0.0-0.2) Sodium Level 134 mmol/L (136-145) Potassium Level 3.7 mmol/L (3.5-5.1) Chloride Level 97 mmol/L (98-107) Carbon Dioxide Level 31 mmol/L (21-32) Anion Gap 6 (6-14) Blood Urea Nitrogen 15 mg/dL (7-20) Creatinine 0.8 mg/dL (0.6-1.0) Estimated GFR (Cockcroft-Gault) 68.2 BUN/Creatinine Ratio 19 (6-20) Glucose Level 248 mg/dL (70-99) Calcium Level 9.6 mg/dL (8.5-10.1) Total Bilirubin 0.3 mg/dL (0.2-1.0) Aspartate Amino Transf (AST/SGOT) 17 U/L (15-37) Alanine Aminotransferase (ALT/SGPT) 14 U/L (14-59) Alkaline Phosphatase 98 U/L (46-116) Total Protein 6.9 g/dL (6.4-8.2) Albumin 2.7 g/dL (3.4-5.0) Albumin/Globulin Ratio 0.6 (1.0-1.7) Assessment and Plan Assessmemt and Plan Problems Medical Problems: (1) Fatigue Status: Acute (2) Hyponatremia Status: Acute Comment Review of Relevant I have reviewed the following items imani (where applicable) has been applied. Labs Laboratory Tests Test 03/08/19 09:27 03/08/19 12:34 03/08/19 17:04 03/08/19 21:22 Glucose (Fingerstick) 194 mg/dL (70-99) 279 mg/dL (70-99) 215 mg/dL (70-99) 187 mg/dL (70-99) Test 03/09/19 04:30 03/09/19 08:44 03/09/19 10:21 03/09/19 11:38 Sodium Level 131 mmol/L (136-145) Potassium Level 4.0 mmol/L (3.5-5.1) Chloride Level 96 mmol/L (98-107) Carbon Dioxide Level 33 mmol/L (21-32) Anion Gap 2 (6-14) Blood Urea Nitrogen 20 mg/dL (7-20) Creatinine 0.7 mg/dL (0.6-1.0) Estimated GFR (Cockcroft-Gault) 79.5 Glucose Level 235 mg/dL (70-99) Calcium Level 9.2 mg/dL (8.5-10.1) Phosphorus Level 2.4 mg/dL (2.6-4.7) Iron Level 22 ug/dL (50-170) Total Iron Binding Capacity 289 ug/dL (250-450) Iron Saturation 8 % (15-34) Albumin 2.6 g/dL (3.4-5.0) Glucose (Fingerstick) 192 mg/dL (70-99) 202 mg/dL (70-99) Stool Occult Blood Positive (NEG) Test 03/09/19 17:07 03/09/19 20:31 03/10/19 03:40 03/10/19 07:34 Glucose (Fingerstick) 261 mg/dL (70-99) 281 mg/dL (70-99) 221 mg/dL (70-99) White Blood Count 6.8 x10^3/uL (4.0-11.0) Red Blood Count 3.49 x10^6/uL (3.50-5.40) Hemoglobin 9.7 g/dL (12.0-15.5) Hematocrit 29.3 % (36.0-47.0) Mean Corpuscular Volume 84 fL (79-100) Mean Corpuscular Hemoglobin 28 pg (25-35) Mean Corpuscular Hemoglobin Concent 33 g/dL (31-37) Red Cell Distribution Width 15.2 % (11.5-14.5) Platelet Count 244 x10^3/uL (140-400) Neutrophils (%) (Auto) 58 % (31-73) Lymphocytes (%) (Auto) 32 % (24-48) Monocytes (%) (Auto) 9 % (0-9) Eosinophils (%) (Auto) 1 % (0-3) Basophils (%) (Auto) 1 % (0-3) Neutrophils # (Auto) 3.9 x10^3/uL (1.8-7.7) Lymphocytes # (Auto) 2.1 x10^3/uL (1.0-4.8) Monocytes # (Auto) 0.6 x10^3/uL (0.0-1.1) Eosinophils # (Auto) 0.1 x10^3/uL (0.0-0.7) Basophils # (Auto) 0.1 x10^3/uL (0.0-0.2) Sodium Level 134 mmol/L (136-145) Potassium Level 3.7 mmol/L (3.5-5.1) Chloride Level 97 mmol/L (98-107) Carbon Dioxide Level 31 mmol/L (21-32) Anion Gap 6 (6-14) Blood Urea Nitrogen 15 mg/dL (7-20) Creatinine 0.8 mg/dL (0.6-1.0) Estimated GFR (Cockcroft-Gault) 68.2 BUN/Creatinine Ratio 19 (6-20) Glucose Level 248 mg/dL (70-99) Calcium Level 9.6 mg/dL (8.5-10.1) Total Bilirubin 0.3 mg/dL (0.2-1.0) Aspartate Amino Transf (AST/SGOT) 17 U/L (15-37) Alanine Aminotransferase (ALT/SGPT) 14 U/L (14-59) Alkaline Phosphatase 98 U/L (46-116) Total Protein 6.9 g/dL (6.4-8.2) Albumin 2.7 g/dL (3.4-5.0) Albumin/Globulin Ratio 0.6 (1.0-1.7) Laboratory Tests Test 03/09/19 08:44 03/09/19 10:21 03/09/19 11:38 03/09/19 17:07 Glucose (Fingerstick) 192 mg/dL (70-99) 202 mg/dL (70-99) 261 mg/dL (70-99) Stool Occult Blood Positive (NEG) Test 03/09/19 20:31 03/10/19 03:40 03/10/19 07:34 Glucose (Fingerstick) 281 mg/dL (70-99) 221 mg/dL (70-99) White Blood Count 6.8 x10^3/uL (4.0-11.0) Red Blood Count 3.49 x10^6/uL (3.50-5.40) Hemoglobin 9.7 g/dL (12.0-15.5) Hematocrit 29.3 % (36.0-47.0) Mean Corpuscular Volume 84 fL (79-100) Mean Corpuscular Hemoglobin 28 pg (25-35) Mean Corpuscular Hemoglobin Concent 33 g/dL (31-37) Red Cell Distribution Width 15.2 % (11.5-14.5) Platelet Count 244 x10^3/uL (140-400) Neutrophils (%) (Auto) 58 % (31-73) Lymphocytes (%) (Auto) 32 % (24-48) Monocytes (%) (Auto) 9 % (0-9) Eosinophils (%) (Auto) 1 % (0-3) Basophils (%) (Auto) 1 % (0-3) Neutrophils # (Auto) 3.9 x10^3/uL (1.8-7.7) Lymphocytes # (Auto) 2.1 x10^3/uL (1.0-4.8) Monocytes # (Auto) 0.6 x10^3/uL (0.0-1.1) Eosinophils # (Auto) 0.1 x10^3/uL (0.0-0.7) Basophils # (Auto) 0.1 x10^3/uL (0.0-0.2) Sodium Level 134 mmol/L (136-145) Potassium Level 3.7 mmol/L (3.5-5.1) Chloride Level 97 mmol/L (98-107) Carbon Dioxide Level 31 mmol/L (21-32) Anion Gap 6 (6-14) Blood Urea Nitrogen 15 mg/dL (7-20) Creatinine 0.8 mg/dL (0.6-1.0) Estimated GFR (Cockcroft-Gault) 68.2 BUN/Creatinine Ratio 19 (6-20) Glucose Level 248 mg/dL (70-99) Calcium Level 9.6 mg/dL (8.5-10.1) Total Bilirubin 0.3 mg/dL (0.2-1.0) Aspartate Amino Transf (AST/SGOT) 17 U/L (15-37) Alanine Aminotransferase (ALT/SGPT) 14 U/L (14-59) Alkaline Phosphatase 98 U/L (46-116) Total Protein 6.9 g/dL (6.4-8.2) Albumin 2.7 g/dL (3.4-5.0) Albumin/Globulin Ratio 0.6 (1.0-1.7) Medications Current Medications Albuterol Sulfate (Ventolin Neb Soln) 2.5 mg 1X ONCE NEB Last administered on 03/05/19at 17:20; Start 03/05/19 at 16:30; Stop 03/05/19 at 16:33; Status DC Sodium Chloride 150 ml @ 50 mls/hr 1X ONCE IV Last administered on 03/05/19at 19:18; Start 03/05/19 at 18:15; Stop 03/05/19 at 21:14; Status DC Furosemide (Lasix) 40 mg 1X ONCE IVP Last administered on 03/05/19at 18:39; Start 03/05/19 at 18:15; Stop 03/05/19 at 18:20; Status DC Guaifenesin (Robitussin Dm) 10 ml PRN Q4HRS PRN PO COUGH Last administered on 03/09/19at 15:16; Start 03/06/19 at 04:15 Aspirin (Ecotrin) 81 mg DAILYWBKFT PO Last administered on 03/09/19at 08:38; Start 03/06/19 at 12:00 Atorvastatin Calcium (Lipitor) 20 mg QHS PO Last administered on 03/09/19at 21:21; Start 03/06/19 at 21:00 Insulin Glargine (Lantus Syringe) 6 unit QHS SQ Last administered on 03/06/19at 21:10; Start 03/06/19 at 21:00; Stop 03/07/19 at 07:29; Status DC Insulin Human Lispro (HumaLOG) TIDWMEALS SQ ; Start 03/06/19 at 12:00; Stop 03/07/19 at 07:29; Status DC Lisinopril (Prinivil) 40 mg DAILY PO Last administered on 03/06/19at 10:16; Start 03/06/19 at 10:00; Stop 03/06/19 at 15:01; Status DC Nystatin (Nystop) 1 ayan BID TP Last administered on 03/09/19at 21:26; Start 03/06/19 at 10:00 Polyethylene Glycol (miraLAX PACKET) 17 gm DAILY PO Last administered on 03/08/19at 08:52; Start 03/06/19 at 11:00 Aspirin (Ecotrin) 81 mg STK-MED ONCE PO ; Start 03/06/19 at 10:14; Stop 03/06/19 at 10:15; Status DC Potassium Chloride (Klor-Con) 40 meq 1X ONCE PO Last administered on 03/06/19at 10:46; Start 03/06/19 at 10:45; Stop 03/06/19 at 10:46; Status DC Potassium Chloride (Klor-Con) 10 meq 1X ONCE PO ; Start 03/06/19 at 14:00; Stop 03/06/19 at 11:42; Status DC Hydralazine HCl (Apresoline Inj) 10 mg PRN Q4HRS PRN IVP ELEVATED BP, SEE COMMENTS Last administered on 03/09/19at 15:12; Start 03/06/19 at 10:45 Sodium Chloride 250 ml @ 25 mls/hr 1X ONCE IV Last administered on 03/06/19at 13:27; Start 03/06/19 at 11:45; Stop 03/06/19 at 21:44; Status DC Furosemide (Lasix) 40 mg 1X ONCE IVP Last administered on 03/06/19at 12:06; Start 03/06/19 at 11:45; Stop 03/06/19 at 11:46; Status DC Potassium Chloride (Klor-Con) 40 meq 1X ONCE PO Last administered on 03/06/19at 14:02; Start 03/06/19 at 14:00; Stop 03/06/19 at 14:01; Status DC Furosemide (Lasix) 40 mg [id number] IVP Last administered on 03/08/19at 08:50; Start 03/06/19 at 14:00; Stop 03/08/19 at 10:19; Status DC Potassium Chloride (Klor-Con) 20 meq DAILYWBKFT PO Last administered on at 08:38; Start 03/07/19 at 08:00 Lorazepam (Ativan Inj) 0.5 mg PRN Q6HRS PRN IV ANXIETY / AGITATION Last administered on 03/07/19at 23:44; Start 03/06/19 at 15:15 Ondansetron HCl (Zofran) 4 mg PRN Q6HRS PRN IV NAUSEA/VOMITING, 1st CHOICE; Start 03/06/19 at 15:15 Prochlorperazine Edisylate (Compazine) 5 mg PRN Q6HRS PRN IV NAUSEA/VOMITING, 2nd CHOICE; Start 03/06/19 at 15:15 Famotidine (Pepcid Vial) 20 mg BID IVP Last administered on 03/09/19at 08:39; Start 03/06/19 at 21:00; Stop 03/09/19 at 09:40; Status DC Heparin Sodium (Porcine) (Heparin Sodium) 5,000 unit Q8HRS SQ Last administered on 03/09/19at 21:26; Start 03/06/19 at 15:30 Sodium Chloride (Normal Saline Flush) 3 ml QSHIFT PRN IV AFTER MEDS AND BLOOD DRAWS; Start 03/06/19 at 15:15 Docusate Sodium (Colace) 100 mg BID PO Last administered on 03/09/19at 21:21; Start 03/06/19 at 21:00 Insulin Glargine (Lantus Syringe) 20 unit QHS SQ Last administered on 03/07/19at 21:07; Start 03/07/19 at 21:00; Stop 03/08/19 at 12:30; Status DC Insulin Human Lispro (HumaLOG) 5 units TIDWMEALS SQ Last administered on 03/09/19at 17:42; Start 03/07/19 at 07:30 Magnesium Sulfate 50 ml @ 25 mls/hr 1X ONCE IV Last administered on 03/07/19at 09:15; Start 03/07/19 at 08:15; Stop 03/07/19 at 10:14; Status DC Potassium Chloride (Klor-Con) 40 meq 1X ONCE PO Last administered on 03/07/19at 09:14; Start 03/07/19 at 08:15; Stop 03/07/19 at 08:16; Status DC Albuterol Sulfate (Ventolin Neb Soln) 2.5 mg 1X ONCE NEB Last administered on 03/07/19at 15:54; Start 03/07/19 at 10:30; Stop 03/07/19 at 10:31; Status DC Potassium Chloride (Klor-Con) 40 meq 1X ONCE PO Last administered on 03/07/19at 13:48; Start 03/07/19 at 12:45; Stop 03/07/19 at 12:46; Status DC Sodium Chloride 200 ml @ 40 mls/hr 1X ONCE IV Last administered on 03/07/19at 15:32; Start 03/07/19 at 15:00; Stop 03/07/19 at 19:59; Status DC Albuterol Sulfate (Ventolin Neb Soln) 2.5 mg STK-MED ONCE .ROUTE ; Start 03/07/19 at 15:51; Stop 03/07/19 at 15:51; Status DC Furosemide (Lasix) 40 mg DAILY IVP ; Start 03/09/19 at 09:00; Stop 03/08/19 at 11:07; Status DC Lisinopril (Prinivil) 40 mg DAILY PO Last administered on 03/09/19at 08:38; Start 03/08/19 at 11:00 Furosemide (Lasix) 40 mg [id number] PO Last administered on 03/09/19at 15:11; Start 03/08/19 at 16:00 Insulin Glargine (Lantus Syringe) 23 unit QHS SQ Last administered on 03/09/19at 22:02; Start 03/08/19 at 21:00 Zolpidem Tartrate (Ambien) 5 mg PRN QHS PRN PO INSOMNIA Last administered on 03/08/19at 21:23; Start 03/08/19 at 18:30 Famotidine (Pepcid Vial) 20 mg DAILY IVP ; Start 03/10/19 at 09:00 Sodium Phosphate 20 mmol/Sodium Chloride 256.6667 ml @ 64.167 m... 1X ONCE IV Last administered on 03/09/19at 10:51; Start 03/09/19 at 11:00; Stop 03/09/19 at 14:59; Status DC Active Scripts Active Polyethylene Glycol 3350 17 Gm Powd.pack 17 Gm PO DAILY 30 Days Nystop (Nystatin) 60 Gm Powder 1 Ayan TP BID 14 Days Humalog (Insulin Lispro) 100 Unit/1 Ml Insuln.pen 0 Units SQ TIDWMEALS 30 Days Lantus (Insulin Glargine,Hum.rec.anlog) 100 Unit/1 Ml Vial 6 Unit SQ QHS 30 Days Aspirin Ec (Aspirin) 81 Mg Tablet.dr 81 Mg PO DAILYWBKFT 30 Days Atorvastatin Calcium 20 Mg Tablet 20 Mg PO QHS 30 Days Oxycodone-Acetaminophen 5-325 (Oxycodone Hcl/Acetaminophen) 1 Each Tablet 1 Tab PO PRN Q6HRS PRN Reported Gabapentin (Gabapentin) 300 Mg Capsule 300 Mg PO HS PRN Take extra dose 2 hours after first dose if neuropathy persists Gabapentin (Gabapentin) 300 Mg Capsule 300 Mg PO HS Glimepiride 4 Mg Tablet 1 Tab PO BID Lisinopril 40 Mg Tablet 40 Mg PO DAILY Vitals/I & O Vital Sign - Last 24 Hours 03/09/19 03/09/19 03/09/19 03/09/19 08:38 11:50 15:08 15:12 Temp 97.5 98.2 97.5 98.2 Pulse 65 57 62 62 Resp 20 20 B/P (MAP) 173/89 160/79 (106) 196/84 (121) 196/84 Pulse Ox 98 O2 Delivery Room Air Room Air 03/09/19 03/09/19 03/09/19 03/09/19 15:28 15:43 20:00 20:00 Temp 97.8 97.8 Pulse 72 97 Resp 23 B/P (MAP) 169/73 (105) 168/67 (100) 188/82 (117) Pulse Ox 99 O2 Delivery Room Air Room Air 03/10/19 03/10/19 00:00 04:00 Temp 97.9 97.9 97.9 97.9 Pulse 92 77 Resp 18 20 B/P (MAP) 123/57 (79) 131/68 (89) Pulse Ox 97 95 O2 Delivery Room Air Room Air SARAH FISH MD Mar 10, 2019 08:23
[2019-03-10] MEDS: NYSTATIN TOPICAL POWDER 15GM BOTTLE. TP SCH ×2 (09:38→21:00)
[2019-03-10] MEDS: POLYETHYLENE GLYCOL 3350 17 GM PACKET. PO SCH (09:38)
[2019-03-10] MEDS: FAMOTIDINE 20 MG/2 ML VIAL IVP SCH (09:38)
[2019-03-10] MEDS: ASPIRIN ENTERIC COATED 81 MG TABLET.DR. PO SCH (09:38)
[2019-03-10] MEDS: FUROSEMIDE 40 MG TABLET. PO SCH ×2 (09:39→17:27)
[2019-03-10] MEDS: DOCUSATE SODIUM 100 MG CAPSULE. PO SCH ×2 (09:39→21:04)
[2019-03-10] MEDS: LISINOPRIL 20 MG TABLET PO SCH (09:39)
[2019-03-10] MEDS: POTASSIUM CHLORIDE 20 MEQ TABLET.ER. PO SCH (09:39)
[2019-03-10] MEDS: INSULIN LISPRO 300 UNITS/3 ML VIAL. SQ SCH ×5 (09:49→21:52)
--- NOTE | 2019-03-10 11:45 | PDOC2 ---
CONSULT Date of Consult Date of Consult DATE: 03/10/19 TIME: 11:43 Reason for Consult Reason for Consult: Occult blood in stool with anemia Past Medical History Cardiovascular: AFIB, HTN Pulmonary: No pertinent hx CENTRAL NERVOUS SYSTEM: CVA GI: No pertinent hx Heme/Onc: Cancer Hepatobiliary: No pertinent hx Psych: No pertinent hx Musculoskeletal: Osteoarthritis Rheumatologic: No pertinent hx Infectious disease: No pertinent hx Renal/: No pertinent hx Endocrine: Diabetes Past Surgical History Past Surgical History: Appendectomy, Cataract Removal, Total knee replacement, Hysterectomy Family History Family History: Hypertension Social History No ALCOHOL: none Drugs: None Lives: with Family (spouse) Current Problem List Problem List Problems Medical Problems: (1) Fatigue Status: Acute (2) Hyponatremia Status: Acute Current Medications Current Medications Current Medications Albuterol Sulfate (Ventolin Neb Soln) 2.5 mg 1X ONCE NEB Last administered on 03/05/19at 17:20; Start 03/05/19 at 16:30; Stop 03/05/19 at 16:33; Status DC Sodium Chloride 150 ml @ 50 mls/hr 1X ONCE IV Last administered on 03/05/19at 19:18; Start 03/05/19 at 18:15; Stop 03/05/19 at 21:14; Status DC Furosemide (Lasix) 40 mg 1X ONCE IVP Last administered on 03/05/19at 18:39; Start 03/05/19 at 18:15; Stop 03/05/19 at 18:20; Status DC Guaifenesin (Robitussin Dm) 10 ml PRN Q4HRS PRN PO COUGH Last administered on 03/09/19at 15:16; Start 03/06/19 at 04:15 Aspirin (Ecotrin) 81 mg DAILYWBKFT PO Last administered on 03/10/19at 09:38; Start 03/06/19 at 12:00 Atorvastatin Calcium (Lipitor) 20 mg QHS PO Last administered on 03/09/19at 21:21; Start 03/06/19 at 21:00 Insulin Glargine (Lantus Syringe) 6 unit QHS SQ Last administered on 03/06/19at 21:10; Start 03/06/19 at 21:00; Stop 03/07/19 at 07:29; Status DC Insulin Human Lispro (HumaLOG) TIDWMEALS SQ ; Start 03/06/19 at 12:00; Stop 03/07/19 at 07:29; Status DC Lisinopril (Prinivil) 40 mg DAILY PO Last administered on 03/06/19at 10:16; Start 03/06/19 at 10:00; Stop 03/06/19 at 15:01; Status DC Nystatin (Nystop) 1 ayan BID TP Last administered on 03/10/19at 09:38; Start at 10:00 Polyethylene Glycol (miraLAX PACKET) 17 gm DAILY PO Last administered on 03/10/19at 09:38; Start 03/06/19 at 11:00 Aspirin (Ecotrin) 81 mg STK-MED ONCE PO ; Start 03/06/19 at 10:14; Stop 03/06/19 at 10:15; Status DC Potassium Chloride (Klor-Con) 40 meq 1X ONCE PO Last administered on 03/06/19at 10:46; Start 03/06/19 at 10:45; Stop 03/06/19 at 10:46; Status DC Potassium Chloride (Klor-Con) 10 meq 1X ONCE PO ; Start 03/06/19 at 14:00; Stop 03/06/19 at 11:42; Status DC Hydralazine HCl (Apresoline Inj) 10 mg PRN Q4HRS PRN IVP ELEVATED BP, SEE COMMENTS Last administered on 03/09/19at 15:12; Start 03/06/19 at 10:45 Sodium Chloride 250 ml @ 25 mls/hr 1X ONCE IV Last administered on 03/06/19at 13:27; Start 03/06/19 at 11:45; Stop 03/06/19 at 21:44; Status DC Furosemide (Lasix) 40 mg 1X ONCE IVP Last administered on 03/06/19at 12:06; Start 03/06/19 at 11:45; Stop 03/06/19 at 11:46; Status DC Potassium Chloride (Klor-Con) 40 meq 1X ONCE PO Last administered on 03/06/19at 14:02; Start 03/06/19 at 14:00; Stop 03/06/19 at 14:01; Status DC Furosemide (Lasix) 40 mg BID92 IVP Last administered on 03/08/19at 08:50; Start 03/06/19 at 14:00; Stop 03/08/19 at 10:19; Status DC Potassium Chloride (Klor-Con) 20 meq DAILYWBKFT PO Last administered on 03/10/19at 09:39; Start 03/07/19 at 08:00 Lorazepam (Ativan Inj) 0.5 mg PRN Q6HRS PRN IV ANXIETY / AGITATION Last administered on 03/07/19at 23:44; Start 03/06/19 at 15:15 Ondansetron HCl (Zofran) 4 mg PRN Q6HRS PRN IV NAUSEA/VOMITING, 1st CHOICE; Start 03/06/19 at 15:15 Prochlorperazine Edisylate (Compazine) 5 mg PRN Q6HRS PRN IV NAUSEA/VOMITING, 2nd CHOICE; Start 03/06/19 at 15:15 Famotidine (Pepcid Vial) 20 mg BID IVP Last administered on 03/09/19at 08:39; Start 03/06/19 at 21:00; Stop 03/09/19 at 09:40; Status DC Heparin Sodium (Porcine) (Heparin Sodium) 5,000 unit Q8HRS SQ Last administered on 03/09/19at 21:26; Start 03/06/19 at 15:30 Sodium Chloride (Normal Saline Flush) 3 ml QSHIFT PRN IV AFTER MEDS AND BLOOD DRAWS; Start 03/06/19 at 15:15 Docusate Sodium (Colace) 100 mg BID PO Last administered on 03/10/19at 09:39; Start 03/06/19 at 21:00 Insulin Glargine (Lantus Syringe) 20 unit QHS SQ Last administered on 03/07/19at 21:07; Start 03/07/19 at 21:00; Stop 03/08/19 at 12:30; Status DC Insulin Human Lispro (HumaLOG) 5 units TIDWMEALS SQ Last administered on 03/10/19at 09:49; Start 03/07/19 at 07:30 Magnesium Sulfate 50 ml @ 25 mls/hr 1X ONCE IV Last administered on 03/07/19at 09:15; Start 03/07/19 at 08:15; Stop 03/07/19 at 10:14; Status DC Potassium Chloride (Klor-Con) 40 meq 1X ONCE PO Last administered on 03/07/19at 09:14; Start 03/07/19 at 08:15; Stop 03/07/19 at 08:16; Status DC Albuterol Sulfate (Ventolin Neb Soln) 2.5 mg 1X ONCE NEB Last administered on 03/07/19at 15:54; Start 03/07/19 at 10:30; Stop 03/07/19 at 10:31; Status DC Potassium Chloride (Klor-Con) 40 meq 1X ONCE PO Last administered on 03/07/19at 13:48; Start 03/07/19 at 12:45; Stop 03/07/19 at 12:46; Status DC Sodium Chloride 200 ml @ 40 mls/hr 1X ONCE IV Last administered on 03/07/19at 15:32; Start 03/07/19 at 15:00; Stop 03/07/19 at 19:59; Status DC Albuterol Sulfate (Ventolin Neb Soln) 2.5 mg STK-MED ONCE .ROUTE ; Start 03/07/19 at 15:51; Stop 03/07/19 at 15:51; Status DC Furosemide (Lasix) 40 mg DAILY IVP ; Start 03/09/19 at 09:00; Stop 03/08/19 at 11:07; Status DC Lisinopril (Prinivil) 40 mg DAILY PO Last administered on 03/10/19at 09:39; Start 03/08/19 at 11:00 Furosemide (Lasix) 40 mg BID94 PO Last administered on 03/10/19at 09:39; Start 03/08/19 at 16:00 Insulin Glargine (Lantus Syringe) 23 unit QHS SQ Last administered on 03/09/19at 22:02; Start 03/08/19 at 21:00 Zolpidem Tartrate (Ambien) 5 mg PRN QHS PRN PO INSOMNIA Last administered on at 21:23; Start 03/08/19 at 18:30 Famotidine (Pepcid Vial) 20 mg DAILY IVP Last administered on 03/10/19at 09:38; Start 03/10/19 at 09:00 Sodium Phosphate 20 mmol/Sodium Chloride 256.6667 ml @ 64.167 m... 1X ONCE IV Last administered on 03/09/19at 10:51; Start 03/09/19 at 11:00; Stop 03/09/19 at 14:59; Status DC Active Scripts Active Polyethylene Glycol 3350 17 Gm Powd.pack 17 Gm PO DAILY 30 Days Nystop (Nystatin) 60 Gm Powder 1 Ayan TP BID 14 Days Humalog (Insulin Lispro) 100 Unit/1 Ml Insuln.pen 0 Units SQ TIDWMEALS 30 Days Lantus (Insulin Glargine,Hum.rec.anlog) 100 Unit/1 Ml Vial 6 Unit SQ QHS 30 Days Aspirin Ec (Aspirin) 81 Mg Tablet.dr 81 Mg PO DAILYWBKFT 30 Days Atorvastatin Calcium 20 Mg Tablet 20 Mg PO QHS 30 Days Oxycodone-Acetaminophen 5-325 (Oxycodone Hcl/Acetaminophen) 1 Each Tablet 1 Tab PO PRN Q6HRS PRN Reported Gabapentin (Gabapentin) 300 Mg Capsule 300 Mg PO HS PRN Take extra dose 2 hours after first dose if neuropathy persists Gabapentin (Gabapentin) 300 Mg Capsule 300 Mg PO HS Glimepiride 4 Mg Tablet 1 Tab PO BID Lisinopril 40 Mg Tablet 40 Mg PO DAILY Allergies Allergies: Coded Allergies: morphine (Verified Allergy, Intermediate, 07/31/15) pear (Verified Allergy, Intermediate, 06/03/15) codeine (Verified Adverse Reaction, Intermediate, dizzy, 06/01/15) MORPHINE OK Vitals VITALS Vital Signs Date Time Temp Pulse Resp B/P (MAP) Pulse Ox O2 Delivery O2 Flow Rate FiO2 03/10/19 09:39 76 164/62 03/10/19 07:00 97.7 18 92 Room Air 97.7 Labs Labs Laboratory Tests Test 03/08/19 12:34 03/08/19 17:04 03/08/19 21:22 03/09/19 04:30 Glucose (Fingerstick) 279 mg/dL (70-99) 215 mg/dL (70-99) 187 mg/dL (70-99) Sodium Level 131 mmol/L (136-145) Potassium Level 4.0 mmol/L (3.5-5.1) Chloride Level 96 mmol/L (98-107) Carbon Dioxide Level 33 mmol/L (21-32) Anion Gap 2 (6-14) Blood Urea Nitrogen 20 mg/dL (7-20) Creatinine 0.7 mg/dL (0.6-1.0) Estimated GFR (Cockcroft-Gault) 79.5 Glucose Level 235 mg/dL (70-99) Calcium Level 9.2 mg/dL (8.5-10.1) Phosphorus Level 2.4 mg/dL (2.6-4.7) Iron Level 22 ug/dL (50-170) Total Iron Binding Capacity 289 ug/dL (250-450) Iron Saturation 8 % (15-34) Albumin 2.6 g/dL (3.4-5.0) Test 03/09/19 08:44 03/09/19 10:21 03/09/19 11:38 03/09/19 17:07 Glucose (Fingerstick) 192 mg/dL (70-99) 202 mg/dL (70-99) 261 mg/dL (70-99) Stool Occult Blood Positive (NEG) Test 03/09/19 20:31 03/10/19 03:40 03/10/19 07:34 03/10/19 11:31 Glucose (Fingerstick) 281 mg/dL (70-99) 221 mg/dL (70-99) 365 mg/dL (70-99) White Blood Count 6.8 x10^3/uL (4.0-11.0) Red Blood Count 3.49 x10^6/uL (3.50-5.40) Hemoglobin 9.7 g/dL (12.0-15.5) Hematocrit 29.3 % (36.0-47.0) Mean Corpuscular Volume 84 fL (79-100) Mean Corpuscular Hemoglobin 28 pg (25-35) Mean Corpuscular Hemoglobin Concent 33 g/dL (31-37) Red Cell Distribution Width 15.2 % (11.5-14.5) Platelet Count 244 x10^3/uL (140-400) Neutrophils (%) (Auto) 58 % (31-73) Lymphocytes (%) (Auto) 32 % (24-48) Monocytes (%) (Auto) 9 % (0-9) Eosinophils (%) (Auto) 1 % (0-3) Basophils (%) (Auto) 1 % (0-3) Neutrophils # (Auto) 3.9 x10^3/uL (1.8-7.7) Lymphocytes # (Auto) 2.1 x10^3/uL (1.0-4.8) Monocytes # (Auto) 0.6 x10^3/uL (0.0-1.1) Eosinophils # (Auto) 0.1 x10^3/uL (0.0-0.7) Basophils # (Auto) 0.1 x10^3/uL (0.0-0.2) Sodium Level 134 mmol/L (136-145) Potassium Level 3.7 mmol/L (3.5-5.1) Chloride Level 97 mmol/L (98-107) Carbon Dioxide Level 31 mmol/L (21-32) Anion Gap 6 (6-14) Blood Urea Nitrogen 15 mg/dL (7-20) Creatinine 0.8 mg/dL (0.6-1.0) Estimated GFR (Cockcroft-Gault) 68.2 BUN/Creatinine Ratio 19 (6-20) Glucose Level 248 mg/dL (70-99) Calcium Level 9.6 mg/dL (8.5-10.1) Total Bilirubin 0.3 mg/dL (0.2-1.0) Aspartate Amino Transf (AST/SGOT) 17 U/L (15-37) Alanine Aminotransferase (ALT/SGPT) 14 U/L (14-59) Alkaline Phosphatase 98 U/L (46-116) Total Protein 6.9 g/dL (6.4-8.2) Albumin 2.7 g/dL (3.4-5.0) Albumin/Globulin Ratio 0.6 (1.0-1.7) Laboratory Tests Test 03/09/19 17:07 03/09/19 20:31 03/10/19 03:40 03/10/19 07:34 Glucose (Fingerstick) 261 mg/dL (70-99) 281 mg/dL (70-99) 221 mg/dL (70-99) White Blood Count 6.8 x10^3/uL (4.0-11.0) Red Blood Count 3.49 x10^6/uL (3.50-5.40) Hemoglobin 9.7 g/dL (12.0-15.5) Hematocrit 29.3 % (36.0-47.0) Mean Corpuscular Volume 84 fL (79-100) Mean Corpuscular Hemoglobin 28 pg (25-35) Mean Corpuscular Hemoglobin Concent 33 g/dL (31-37) Red Cell Distribution Width 15.2 % (11.5-14.5) Platelet Count 244 x10^3/uL (140-400) Neutrophils (%) (Auto) 58 % (31-73) Lymphocytes (%) (Auto) 32 % (24-48) Monocytes (%) (Auto) 9 % (0-9) Eosinophils (%) (Auto) 1 % (0-3) Basophils (%) (Auto) 1 % (0-3) Neutrophils # (Auto) 3.9 x10^3/uL (1.8-7.7) Lymphocytes # (Auto) 2.1 x10^3/uL (1.0-4.8) Monocytes # (Auto) 0.6 x10^3/uL (0.0-1.1) Eosinophils # (Auto) 0.1 x10^3/uL (0.0-0.7) Basophils # (Auto) 0.1 x10^3/uL (0.0-0.2) Sodium Level 134 mmol/L (136-145) Potassium Level 3.7 mmol/L (3.5-5.1) Chloride Level 97 mmol/L (98-107) Carbon Dioxide Level 31 mmol/L (21-32) Anion Gap 6 (6-14) Blood Urea Nitrogen 15 mg/dL (7-20) Creatinine 0.8 mg/dL (0.6-1.0) Estimated GFR (Cockcroft-Gault) 68.2 BUN/Creatinine Ratio 19 (6-20) Glucose Level 248 mg/dL (70-99) Calcium Level 9.6 mg/dL (8.5-10.1) Total Bilirubin 0.3 mg/dL (0.2-1.0) Aspartate Amino Transf (AST/SGOT) 17 U/L (15-37) Alanine Aminotransferase (ALT/SGPT) 14 U/L (14-59) Alkaline Phosphatase 98 U/L (46-116) Total Protein 6.9 g/dL (6.4-8.2) Albumin 2.7 g/dL (3.4-5.0) Albumin/Globulin Ratio 0.6 (1.0-1.7) Test 03/10/19 11:31 Glucose (Fingerstick) 365 mg/dL (70-99) Assessment/Plan Assessment/Plan Heme postivie stool with anemia- etiology to be determined. Colon/gastric cancer, polyps, AVMS, polyps, and/or hemorrhoids in differential Rec o/p colonoscopy- patient adamant about not wanting any procedures- Gi team is availalbe if patient should change her mind. No additional recommendations at this time. Full note dictated JOSHUA LOCO MD Mar 10, 2019 11:45
--- NOTE | 2019-03-10 12:31 | CONS ---
DATE OF CONSULTATION: 03/10/2019 REASON FOR CONSULTATION: Heme-positive stool and anemia. HISTORY OF PRESENT ILLNESS: This is an 83-year-old female with past medical history significant for organic heart disease, AFib, arthritis, diabetes, hypertension, history of CVA, status post appendectomy, hysterectomy, and knee replacement. She is admitted with cough and URI symptoms over the past week. With continued issues, she has been re-admitted and was also noted to have hyponatremia. During the workup, she was noted to be anemic with hemoglobin of 9.7 and the stools were Hemoccult, which were positive. There has been no visible melena and/or hematochezia. No change in bowel habits, diarrhea, or constipation. The patient has not had colonoscopy or upper endoscopy done. She does not wish to have any further studies and is requested not to have GI doctor. PAST MEDICAL HISTORY: Organic heart disease, AFib, diabetes, status post CVA, status post appendectomy, hysterectomy, and knee replacement. ALLERGIES: CODEINE AND MORPHINE. MEDICATIONS: Include Pepcid, insulin, Zolpidem, furosemide, lisinopril, potassium chloride, atorvastatin, lorazepam, aspirin, hydralazine, and nystatin. SOCIAL HISTORY: She is retired. She does not drink or smoke. FAMILY HISTORY: Noncontributory. REVIEW OF SYSTEMS: Per records. PHYSICAL EXAMINATION: GENERAL: Reveals an obese female. VITAL SIGNS: Temperature is 97.7, pulse 76, respirations 18, and blood pressure is 164/62. HEENT: Normocephalic and atraumatic head. Pupils and extraocular muscles are not tested. Sclerae anicteric. NECK: Supple. LUNGS: Clear. CARDIOVASCULAR: Reveals an S1, S2 without S3, S4, or appreciable murmur. ABDOMEN: Soft abdomen. Normal bowel sounds without appreciable hepatosplenomegaly. EXTREMITIES: No cyanosis or clubbing. There is 1+ edema in her legs. LABORATORY STUDIES: Hemoglobin is 9.7, hematocrit 29.3, white count 6.8, and platelet count is 244,000. Sodium 134, potassium 3.7, chloride 97, BUN 15, creatinine 0.8, and glucose is 248. Total bilirubin 0.3, AST of 17, ALT of 14, and alkaline phosphatase of 98. IMPRESSION: Anemia with heme positive stool, etiology is to be determined. Gastric or colon cancer, polyps, AVMs, celiac disease, and hemorrhoids are in the differential. RECOMMENDATIONS: I recommend that the patient consider an outpatient colonoscopy which she adamantly refuses. Therefore, the GI team will be available if the patient should change her mind. We have no additional recommendations at this time. JOSHUA LOCO MD DR: SAURAV/hector JOB#: [id number] / [id number] KARYN Brown MD
[2019-03-10] MEDS ORDERED: IV DEXTROSE 5% 250 ML BAG. IV PRN (14:15)
[2019-03-10] MEDS ORDERED: DEXTROSE 50% 25 GM / 50ML DISP.SYRIN. IV PRN (14:15)
[2019-03-10] MEDS: valACYclovir 500 MG TABLET. PO SCH ×2 (15:53→21:04)
[2019-03-10] MEDS: guaiFENesin DM 200MG/20MG 10 ML SYRUP PO PRN (21:02)
[2019-03-10] MEDS: ATORVASTATIN CALCIUM 20 MG TABLET PO SCH (21:04)
[2019-03-10] MEDS: INSULIN GLARGINE SYRINGE. SQ SCH (21:50)
[2019-03-10] MEDS: ZOLPIDEM 5 MG TABLET. PO PRN (22:04)
[2019-03-11 03:50] VITALS: BP 161/63
[2019-03-11] MEDS: HEPARIN for SUB-Q USE 5,000 UNIT/ML VIAL. SQ SCH (06:31)
[2019-03-11 07:57] VITALS: BP 180/82
[2019-03-11] MEDS: ASPIRIN ENTERIC COATED 81 MG TABLET.DR. PO SCH (08:38)
[2019-03-11] MEDS: DOCUSATE SODIUM 100 MG CAPSULE. PO SCH (08:38)
[2019-03-11] MEDS: FUROSEMIDE 40 MG TABLET. PO SCH (08:38)
[2019-03-11] MEDS: NYSTATIN TOPICAL POWDER 15GM BOTTLE. TP SCH (08:38)
[2019-03-11] MEDS: valACYclovir 500 MG TABLET. PO SCH (08:38)
[2019-03-11] MEDS: LISINOPRIL 20 MG TABLET PO SCH (08:38)
[2019-03-11] MEDS: POTASSIUM CHLORIDE 20 MEQ TABLET.ER. PO SCH (08:39)
[2019-03-11] MEDS: POLYETHYLENE GLYCOL 3350 17 GM PACKET. PO SCH (08:39)
[2019-03-11] MEDS: FAMOTIDINE 20 MG/2 ML VIAL IVP SCH (08:39)
[2019-03-11] MEDS: INSULIN LISPRO 300 UNITS/3 ML VIAL. SQ SCH ×2 (08:57→08:58)
[2019-03-11] MEDS ORDERED: DEXTROSE 50% 25 GM / 50ML DISP.SYRIN. IV PRN (10:15)
[2019-03-11] MEDS ORDERED: oxyCODONE/APAP 5/325 1 TAB TABLET PO PRN (10:15)
[2019-03-11] MEDS ORDERED: GABAPENTIN 300 MG CAPSULE. PO PRN (10:15)
[2019-03-11] MEDS ORDERED: IV DEXTROSE 5% 250 ML BAG. IV PRN (10:15)
[2019-03-11] MEDS ORDERED: FURO40TA4 PO (10:19)
[2019-03-11] MEDS ORDERED: INSU100I11 SQ (10:19)
[2019-03-11] MEDS ORDERED: POTA20TA4 PO (10:19)
[2019-03-11] MEDS ORDERED: INSU100V8 SQ (10:19)
--- NOTE | 2019-03-11 10:20 | SNU/HH DC ---
DISCHARGE ORDERS DISCHARGE INFORMATION: DISCHARGE DATE: Mar 11, 2019 FINAL DIAGNOSIS Problems Medical Problems: (1) Fatigue Status: Acute (2) Hyponatremia Status: Acute CONDITION ON DISCHARGE: Stable CODE STATUS: Code Status: Full DETENTION: SNF STAY <30 DAYS: No HOSPICE: HOSPICE: No HOSPICE EVAL & TREAT: No LTAC: ADMIT TO LTAC: No POST DISCHARGE ORDERS: ACTIVITY ORDERS: Activity as tolerated, Progressive ambulation DIET AFTER DISCHARGE: Cardiac CHECKS AFTER DISCHARGE: CHECKS AFTER DISCHARGE: Check blood press - daily, Check blood sugar, ac/hs TREATMENT/EQUIPMENT ORDERS: ADAPTIVE EQUIPMENT NEEDED: Front wheeled walker Physical Therapy For: Evalulation/Treatment Occupational Therapy For: Evaluation/Treatment Speech Language Pathology For: Evaluation/Treatment DISCHARGE MEDICATIONS: Home Meds Active Scripts Insulin Lispro (HUMALOG) 100 Unit/1 Ml Insuln.pen, 10 UNITS SQ TIDWMEALS for dm 2 for 30 Days, EACH Prov:CLARISA VALERA MD 03/11/19 Insulin Glargine,Hum.rec.anlog (LANTUS) 100 Unit/1 Ml Vial, 23 UNIT SQ QHS for dm 2 for 30 Days, EACH Prov:CLARISA VALERA MD 03/11/19 Potassium Chloride (KLOR-CON M20) 20 Meq Tab.er.prt, 20 MEQ PO DAILYWBKFT for on lasix, #30 TAB.SR Prov:CLARISA VALERA MD 03/11/19 Furosemide (FUROSEMIDE) 40 Mg Tablet, 40 MG PO BID94 for diuretic,per renal recs, #60 TAB Prov:CLARISA VALERA MD 03/11/19 Polyethylene Glycol 3350 (POLYETHYLENE GLYCOL 3350) 17 Gm Powd.pack, 17 GM PO DAILY for constipation for 30 Days, #30 PKT Prov:KARYN NORWOOD MD 02/09/19 Nystatin (NYSTOP) 60 Gm Powder, 1 KAILA TP BID for rash for 14 Days, #30 MISC Prov:KARYN NORWOOD MD 02/08/19 Insulin Lispro (HUMALOG) 100 Unit/1 Ml Insuln.pen, 0 UNITS SQ TIDWMEALS for glucose for 30 Days, #2 EACH Prov:KARYN NORWOOD MD 02/08/19 Aspirin (ASPIRIN EC) 81 Mg Tablet.dr, 81 MG PO DAILYWBKFT for cva for 30 Days, #30 TAB.SR Prov:KARYN NORWOOD MD 02/08/19 Atorvastatin Calcium (ATORVASTATIN CALCIUM) 20 Mg Tablet, 20 MG PO QHS for cholesterol for 30 Days, #30 TAB Prov:KARYN NORWOOD MD 02/08/19 Oxycodone Hcl/Acetaminophen (OXYCODONE-ACETAMINOPHEN 5-325) 1 Each Tablet, 1 TAB PO PRN Q6HRS PRN for PAIN, #40 TAB 0 Refills Prov:NUHA GARCIA MD 06/01/15 Reported Medications Gabapentin (GABAPENTIN ) 300 Mg Capsule, 300 MG PO HS PRN for neuropathy, CAP Take extra dose 2 hours after first dose if neuropathy persists 02/06/19 Glimepiride (GLIMEPIRIDE) 4 Mg Tablet, 1 TAB PO BID for diabetes, #180 TAB 1 Refill 02/06/19 Lisinopril (LISINOPRIL) 40 Mg Tablet, 40 MG PO DAILY for FOR HYPERTENSION, #30 TAB 0 Refills 05/30/15 Discontinued Reported Medications Gabapentin (GABAPENTIN ) 300 Mg Capsule, 300 MG PO HS for NEUROGENIC PAIN, CAP 02/06/19 Discontinued Scripts Insulin Glargine,Hum.rec.anlog (LANTUS) 100 Unit/1 Ml Vial, 6 UNIT SQ QHS for glucose for 30 Days, #1 EACH Prov:KARYN NORWOOD MD 02/08/19 CLARISA VALERA MD Mar 11, 2019 10:20
[2019-03-11] MEDS ORDERED: INSULIN LISPRO 300 UNITS/3 ML VIAL. SQ SCH ×2 (11:00→12:00)
[2019-03-11] MEDS ORDERED: GLIMEPIRIDE 2 MG TABLET. PO SCH (11:00)
[2019-03-11 11:10] VITALS: BP 181/53
--- NOTE | 2019-03-11 11:35 | NUR ---
SS following up with discharge planning. Discharge orders received for nursing home unit. SS phoned and faxed discharge orders to [facility], ; fax [phone]. Pt will discharge today and go to [facility]. [facility] to contact SS with transport time. Pt, pt's RN, and pt's daughter notified.
--- NOTE | 2019-03-11 12:52 | NUR ---
SS following up with discharge planning. [facility] contacted SS and reported that pt will be transported at 1430. Pt's RN notified.
--- NOTE | 2019-03-11 14:35 | PDOC3 ---
Discharge Summary Visit Information Date of Admission: Mar 05, 2019 Date of Discharge: Mar 11, 2019 Admitting Diagnosis Comment: severe, SIADH morbid obesity cough ? 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 2016 A-fib HX DIABETES uncontrolled HYPERTENSION controlled Mild to moderate tricuspid regurgitation. Mod-severe pulmonary hypertension Hypokalemia METABOLIC ENCEPHALOPATHY severe protein-caloric malnutrition anemia with heme pos stool 03/09 Zoster rash right buttocks Final Diagnosis Problems Medical Problems: (1) Fatigue Status: Acute (2) Hyponatremia Status: Acute Brief Hospital Course Allergies Allergies Coded Allergies Type Severity Reaction Last Updated Verified morphine Allergy Intermediate 07/31/15 Yes pear Allergy Intermediate 06/03/15 Yes codeine Adverse Reaction Intermediate dizzy 06/01/15 Yes Vital Signs Vital Signs Date Time Temp Pulse Resp B/P (MAP) Pulse Ox O2 Delivery O2 Flow Rate FiO2 03/11/19 11:10 98.0 77 18 181/53 (95) 93 Room Air 98.0 Lab Results Laboratory Tests Test 03/09/19 17:07 03/09/19 20:31 03/10/19 03:40 03/10/19 07:34 Glucose (Fingerstick) 261 mg/dL (70-99) 281 mg/dL (70-99) 221 mg/dL (70-99) White Blood Count 6.8 x10^3/uL (4.0-11.0) Red Blood Count 3.49 x10^6/uL (3.50-5.40) Hemoglobin 9.7 g/dL (12.0-15.5) Hematocrit 29.3 % (36.0-47.0) Mean Corpuscular Volume 84 fL (79-100) Mean Corpuscular Hemoglobin 28 pg (25-35) Mean Corpuscular Hemoglobin Concent 33 g/dL (31-37) Red Cell Distribution Width 15.2 % (11.5-14.5) Platelet Count 244 x10^3/uL (140-400) Neutrophils (%) (Auto) 58 % (31-73) Lymphocytes (%) (Auto) 32 % (24-48) Monocytes (%) (Auto) 9 % (0-9) Eosinophils (%) (Auto) 1 % (0-3) Basophils (%) (Auto) 1 % (0-3) Neutrophils # (Auto) 3.9 x10^3/uL (1.8-7.7) Lymphocytes # (Auto) 2.1 x10^3/uL (1.0-4.8) Monocytes # (Auto) 0.6 x10^3/uL (0.0-1.1) Eosinophils # (Auto) 0.1 x10^3/uL (0.0-0.7) Basophils # (Auto) 0.1 x10^3/uL (0.0-0.2) Sodium Level 134 mmol/L (136-145) Potassium Level 3.7 mmol/L (3.5-5.1) Chloride Level 97 mmol/L (98-107) Carbon Dioxide Level 31 mmol/L (21-32) Anion Gap 6 (6-14) Blood Urea Nitrogen 15 mg/dL (7-20) Creatinine 0.8 mg/dL (0.6-1.0) Estimated GFR (Cockcroft-Gault) 68.2 BUN/Creatinine Ratio 19 (6-20) Glucose Level 248 mg/dL (70-99) Calcium Level 9.6 mg/dL (8.5-10.1) Total Bilirubin 0.3 mg/dL (0.2-1.0) Aspartate Amino Transf (AST/SGOT) 17 U/L (15-37) Alanine Aminotransferase (ALT/SGPT) 14 U/L (14-59) Alkaline Phosphatase 98 U/L (46-116) Total Protein 6.9 g/dL (6.4-8.2) Albumin 2.7 g/dL (3.4-5.0) Albumin/Globulin Ratio 0.6 (1.0-1.7) Test 03/10/19 11:31 03/10/19 16:27 03/10/19 21:48 03/11/19 07:29 Glucose (Fingerstick) 365 mg/dL (70-99) 322 mg/dL (70-99) 278 mg/dL (70-99) 200 mg/dL (70-99) Test 03/11/19 11:44 Glucose (Fingerstick) 180 mg/dL (70-99) Laboratory Tests Test 03/10/19 16:27 03/10/19 21:48 03/11/19 07:29 03/11/19 11:44 Glucose (Fingerstick) 322 mg/dL (70-99) 278 mg/dL (70-99) 200 mg/dL (70-99) 180 mg/dL (70-99) Brief Hospital Course Ms. Cole is a 83 old [sex] who presented with [ ]confusion though she seems to have baseline possbly unlabeled dementia,. FOUND to have severe hyponatrmeia, euvolemic, treated,. and now Na 130s on dc NEeds SNU and is agreeable, FULL CODE BS high, i needed to adjust insulin coverage on dc OKAYED for pO lasix by renal, was getting IVF for the hyponatremia consults renal Proc; IVF Dipso: SNU, OKAY for pO lasix as per renal Discharge Information Condition at Discharge: Improved, Stable Disposition/Orders: Other (snu) Scheduled Aspirin (Aspirin Ec) 81 Mg Tablet.dr, 81 MG PO DAILYWBKFT for cva for 30 Days, #30 Prescribed by: KARYN NORWOOD MD on 02/08/19 1244 Last Action: Continued on 03/06/19 1001 by KARYN NORWOOD MD Atorvastatin Calcium (Atorvastatin Calcium) 20 Mg Tablet, 20 MG PO QHS for cholesterol for 30 Days, #30 Prescribed by: KARYN NORWOOD MD on 02/08/19 1244 Last Action: Continued on 03/06/19 1001 by KARYN NORWOOD MD Furosemide (Furosemide) 40 Mg Tablet, 40 MG PO [id number] for diuretic,per renal recs, #60 Prescribed by: CLARISA VALERA on 03/11/19 1019 Glimepiride (Glimepiride) 4 Mg Tablet, 1 TAB PO BID for diabetes, #180 Ref 1 (Reported) Entered as Reported by: Christ Johnson on 02/06/19 1140 Last Action: Converted on 03/11/19 1015 by CLARISA VALERA Insulin Glargine,Hum.rec.anlog (Lantus) 100 Unit/1 Ml Vial, 23 UNIT SQ QHS for dm 2 for 30 Days Prescribed by: CLARISA VALERA on 03/11/19 1019 Insulin Lispro (Humalog) 100 Unit/1 Ml Insuln.pen, 0 UNITS SQ TIDWMEALS for glucose for 30 Days, #2 Prescribed by: KARYN NORWOOD MD on 02/08/19 1244 Last Action: Continued on 03/06/19 1001 by KARYN NORWOOD MD Insulin Lispro (Humalog) 100 Unit/1 Ml Insuln.pen, 10 UNITS SQ TIDWMEALS for dm 2 for 30 Days Prescribed by: CLARISA VALERA on 03/11/19 1019 Lisinopril (Lisinopril) 40 Mg Tablet, 40 MG PO DAILY for FOR HYPERTENSION, #30 Ref 0 (Reported) Entered as Reported by: ÁLVARO WEST on 05/30/15 1809 Last Action: Continued on 03/06/19 1001 by KARYN NORWOOD MD Nystatin (Nystop) 60 Gm Powder, 1 KAILA TP BID for rash for 14 Days, #30 Prescribed by: KARYN NORWOOD MD on 02/08/19 1244 Last Action: Continued on 03/06/19 100 by KARYN NORWOOD MD Polyethylene Glycol 3350 (Polyethylene Glycol 3350) 17 Gm Powd.pack, 17 GM PO DAILY for constipation for 30 Days, #30 Prescribed by: KARYN NORWOOD MD on 02/09/19 1010 Last Action: Continued on 03/06/19 100 by KARYN NORWOOD MD Potassium Chloride (Klor-Con M20) 20 Meq Tab.er.prt, 20 MEQ PO DAILYWBKFT for on lasix, #30 Prescribed by: CLARISA VALERA on 03/11/19 1019 Scheduled PRN Gabapentin (Gabapentin ) 300 Mg Capsule, 300 MG PO HS PRN for neuropathy, (Reported) Take extra dose 2 hours after first dose if neuropathy persists Entered as Reported by: Christ Johnson on 02/06/19 1140 Last Action: Continued on 03/11/19 1015 by CLARISA VALERA Oxycodone Hcl/Acetaminophen (Oxycodone-Acetaminophen 5-325) 1 Each Tablet, 1 TAB PO PRN Q6HRS PRN for PAIN, #40 Ref 0 Prescribed by: NUHA GARCIA on 06/01/15 1228 Last Action: Continued on 03/11/19 1015 by CLARISA VALERA Discontinued Medications Gabapentin (Gabapentin ) 300 Mg Capsule, 300 MG PO HS for NEUROGENIC PAIN, (Reported) Entered as Reported by: Christ Johnson on 02/06/19 1140 Last Action: HELD on 03/06/191000 by KARYN NORWOOD MD Insulin Glargine,Hum.rec.anlog (Lantus) 100 Unit/1 Ml Vial, 6 UNIT SQ QHS for glucose for 30 Days, #1 Prescribed by: KARYN NORWOOD MD on 02/08/19 1244 Last Action: Continued on 03/06/191000 by MD SOTO SCHILLING CHERRIE Y MD Mar 11, 2019 14:34
[2019-03-11] MEDS ORDERED: VALA500T PO (14:56)
--- NOTE | 2019-03-11 15:07 | NUR ---
Patient discharged to intermediate facility. Report called to Isabelle HARRINGTON at [facility]. Thorough report provided. Discharge packet and prescriptions sent with transportation. Transport here at 1430 to get patient. Patient assisted in wheelchair. All belongings with patient.
== END 2019-03-11 14:35 | DRG 643 ==
LOC: ER 14:31 → ED HOLD 18:19 → 2 NORTH 22:22 → 1 WEST ICU 03-06 13:10 → 6 SOUTH 03-09 17:11
PROVIDERS: ADMIT Family Medicine; ATTEND Family Medicine
DX: E22.2 Syndrome of inappropriate secretion of antidiuretic hormone (principal); G93.41 Metabolic encephalopathy; I50.33 Acute on chronic diastolic (congestive) heart failure; E43 Unspecified severe protein-calorie malnutrition; N17.9 Acute kidney failure, unspecified; I48.21 Permanent atrial fibrillation; D64.9 Anemia, unspecified; E11.65 Type 2 diabetes mellitus with hyperglycemia; E66.01 Morbid (severe) obesity due to excess calories; E78.5 Hyperlipidemia, unspecified; E83.42 Hypomagnesemia; E87.6 Hypokalemia; F03.90 Unspecified dementia, unspecified severity, without behavioral disturbance, psychotic disturbance, mood disturbance, and anxiety; I07.1 Rheumatic tricuspid insufficiency; I11.0 Hypertensive heart disease with heart failure; I16.0 Hypertensive urgency; J20.9 Acute bronchitis, unspecified; K59.00 Constipation, unspecified; M19.90 Unspecified osteoarthritis, unspecified site; Z79.4 Long term (current) use of insulin; Z79.899 Other long term (current) drug therapy; Z82.49 Family history of ischemic heart disease and other diseases of the circulatory system; Z86.73 Personal history of transient ischemic attack (TIA), and cerebral infarction without residual deficits; Z90.49 Acquired absence of other specified parts of digestive tract; Z90.710 Acquired absence of both cervix and uterus; Z96.653 Presence of artificial knee joint, bilateral; Z85.41 Personal history of malignant neoplasm of cervix uteri; Z68.37 Body mass index [BMI] 37.0-37.9, adult
CPT/HCPCS: 36415; 71045; 80048; 80053; 80069; 81001; 82274; 82533; 82962; 83540; 83550; 83605; 83735; 83880; 83930; 83935; 84300; 84443; 84484; 85025; 85027; 87804; 93005; 94640; J0360; J1644; J1815; J1940; J2060; J3475; J3490; J7050; J7613; 92610; 97110; 97116; 97530; 97535; G0378; J7030

== ENCOUNTER 2019-04-05 18:30 | Emergency (ER) | payer MEDICARE ==
[~2019-04-05] VITALS: Ht 165.1 cm; Wt 95.0 kg
[~2019-04-05 18:30] MED LIST changes: +FURO40TA4 PO; +POTA20TA4 PO; +VALA500T9 PO
--- NOTE | 2019-04-05 19:02 | PHYS DOC ---
Past Medical History Past Medical History: A-Fib, Arthritis, Diabetes-Type II, Hypertension, Stroke Past Surgical History: Appendectomy, Hysterectomy, Knee Replacement Additional Past Surgical Histo: bilat knees Smoking Status: Never Smoker Alcohol Use: None Drug Use: None Adult General Chief Complaint Chief Complaint: ALTERED MENTAL STATUS HPI HPI 83-year-old female with underlying history of hypertension, diabetes, CVA presents to the emergency department with altered mental status. Patient apparently was seen by her home health nurse today with some concern for confu gamal, patient is able to have a conversation usually however states today was limited. Patient sent to the ER for further evaluation given altered mental status/confusion. Patient denies any complaints of chest pain, shortness breath, nausea, vomiting, abdominal pain. Patient knows the month, location, and is alert to herself. She does not appear to be confused on my examination. Nothing makes her symptoms worse, nothing makes her symptoms better on exam. Review of Systems Review of Systems Constitutional: Denies fever or chills [] Respiratory: Denies cough or shortness of breath [] Cardiovascular: No additional information not addressed in HPI [] GI: Denies abdominal pain, nausea, vomiting, bloody stools or diarrhea [] : Denies dysuria or hematuria [] Musculoskeletal: Denies back pain or joint pain [] Integument: Denies rash or skin lesions [] Neurologic: Denies headache, focal weakness or sensory changes [] All other systems were reviewed and found to be within normal limits, except as documented in this note. Current Medications Current Medications Current Medications Medications (Trade) Dose Ordered Sig/Mignon Start Time Stop Time Status Last Admin Dose Admin Magnesium Sulfate 50 ml @ 25 mls/hr 1X ONCE 04/05/19 21:00 04/05/19 22:59 04/05/19 20:56 25 MLS/HR Potassium Chloride (Klor-Con) 40 meq 1X ONCE 04/05/19 21:00 04/05/19 21:01 DC 04/05/19 20:54 40 MEQ Allergies Allergies Allergies Coded Allergies Type Severity Reaction Last Updated Verified morphine Allergy Intermediate 07/31/15 Yes pear Allergy Intermediate 06/03/15 Yes codeine Adverse Reaction Intermediate dizzy 06/01/15 Yes Physical Exam Physical Exam Constitutional: Well developed, well nourished, no acute distress, non-toxic appearance. [] HENT: Normocephalic, atraumatic, bilateral external ears normal, oropharynx moist, no oral exudates, nose normal. [] Eyes: PERRLA, EOMI, conjunctiva normal, no discharge. [] Cardiovascular:Heart rate regular rhythm, no murmur [] Lungs & Thorax: Bilateral breath sounds clear to auscultation [] Abdomen: Bowel sounds normal, soft, no tenderness, no masses, no pulsatile masses. [] Skin: Warm, dry, no erythema, no rash. [] Extremities: No tenderness, + edema. [] Neurologic: Alert and oriented X 3, no focal deficits noted. [] Psychologic: Affect normal, judgement normal, mood normal. [] Current Patient Data Vital Signs Vital Signs Date Time Temp Pulse Resp B/P (MAP) Pulse Ox O2 Delivery O2 Flow Rate FiO2 04/05/19 18:30 98.0 89 18 195/78 (117) 97 Room Air 98.0 Lab Values Laboratory Tests Test 04/05/19 18:35 04/05/19 18:36 04/05/19 19:25 04/05/19 19:30 White Blood Count 10.0 x10^3/uL (4.0-11.0) Red Blood Count 3.90 x10^6/uL (3.50-5.40) Hemoglobin 9.9 g/dL (12.0-15.5) L Hematocrit 31.8 % (36.0-47.0) L Mean Corpuscular Volume 81 fL (79-100) Mean Corpuscular Hemoglobin 26 pg (25-35) Mean Corpuscular Hemoglobin Concent 31 g/dL (31-37) Red Cell Distribution Width 16.0 % (11.5-14.5) H Platelet Count 277 x10^3/uL (140-400) Neutrophils (%) (Auto) 68 % (31-73) Lymphocytes (%) (Auto) 24 % (24-48) Monocytes (%) (Auto) 7 % (0-9) Eosinophils (%) (Auto) 0 % (0-3) Basophils (%) (Auto) 1 % (0-3) Neutrophils # (Auto) 6.7 x10^3/uL (1.8-7.7) Lymphocytes # (Auto) 2.3 x10^3/uL (1.0-4.8) Monocytes # (Auto) 0.7 x10^3/uL (0.0-1.1) Eosinophils # (Auto) 0.0 x10^3/uL (0.0-0.7) Basophils # (Auto) 0.1 x10^3/uL (0.0-0.2) Sodium Level 137 mmol/L (136-145) Potassium Level 3.4 mmol/L (3.5-5.1) L Chloride Level 101 mmol/L (98-107) Carbon Dioxide Level 27 mmol/L (21-32) Anion Gap 9 (6-14) Blood Urea Nitrogen 20 mg/dL (7-20) Creatinine 0.9 mg/dL (0.6-1.0) Estimated GFR (Cockcroft-Gault) 59.5 BUN/Creatinine Ratio 22 (6-20) H Glucose Level 164 mg/dL (70-99) H Calcium Level 10.4 mg/dL (8.5-10.1) H Magnesium Level 1.7 mg/dL (1.8-2.4) L Total Bilirubin 0.3 mg/dL (0.2-1.0) Aspartate Amino Transferase (AST) 15 U/L (15-37) Alanine Aminotransferase (ALT) 9 U/L (14-59) L Alkaline Phosphatase 102 U/L (46-116) Total Protein 8.3 g/dL (6.4-8.2) H Albumin 3.2 g/dL (3.4-5.0) L Albumin/Globulin Ratio 0.6 (1.0-1.7) L Glucose (Fingerstick) 149 mg/dL (70-99) H Urine Collection Type Unknown Urine Color Yellow Urine Clarity Clear Urine pH 5.5 Urine Specific [place] 1.010 Urine Protein Negative mg/dL (NEG-TRACE) Urine Glucose (UA) Negative mg/dL (NEG) Urine Ketones (Stick) Negative mg/dL (NEG) Urine Blood Negative (NEG) Urine Nitrite Negative (NEG) Urine Bilirubin Negative (NEG) Urine Urobilinogen Dipstick 0.2 mg/dL (0.2 mg/dL) Urine Leukocyte Esterase Small (NEG) Urine RBC Occ /HPF (0-2) Urine WBC 1-4 /HPF (0-4) Urine Squamous Epithelial Cells Few /LPF Urine Bacteria 0 /HPF (0-FEW) Urine Hyaline Casts Moderate /HPF Urine Mucus Mod /LPF Ammonia 12 mcmol/L (11-34) Laboratory Tests 04/05/19 18:35 Laboratory Tests 04/05/19 18:35 EKG EKG EKG reviewed, normal sinus rhythm, heart rate 71, left axis deviation, no systemic, interpretation time 1848[] Radiology/Procedures Radiology/Procedures [facility] [address] [place] [address] IMAGING REPORT Signed PATIENT: MILLIE MORALES ACCOUNT: [id number] : 1935 LOCATION: ER AGE: 83 SEX: F EXAM STATUS: PRE ER ORD. PHYSICIAN: LENNIE MARTIN MD REASON: AMS PROCEDURE: CT HEAD WO CONTRAST CT scan of the head without contrast 04/05/2019 Clinical History: Altered mental status. Technique: Unenhanced, contiguous, 5 mm axial sections were obtained through the head. One or more of the following individualized dose reduction techniques were utilized for this study: 1. Automated exposure control. 2. Adjustment of the mA and/or kV according to patient size. 3. Use of iterative reconstruction technique. Findings: Comparison study is dated 02/06/2019. There is generalized parenchymal atrophy. Areas of decreased attenuation are seen within the periventricular and subcortical white matter of both cerebral hemispheres consistent with areas of small vessel ischemic disease. Areas of encephalomalacia are seen involving the right cerebellar hemisphere and left occipital lobe, unchanged. No acute parenchymal abnormality is seen. No extra-axial fluid collection is noted. No skull fracture is seen. Impression: No acute intracranial abnormality is seen. Electronically signed by: Princess Waters MD (04/05/2019 7:37 PM) [id number] DICTATED and SIGNED BY: PRINCESS WATERS MD DATE: 04/05/191936 [] Course & Med Decision Making Course & Med Decision Making Pertinent Labs and Imaging studies reviewed. (See chart for details) []83-year-old female with underlying history of hypertension, diabetes, CVA presents to the emergency department with altered mental status. Patient apparently was seen by her home health nurse today with some concern for confusion, patient is able to have a conversation usually however states today was limited. Patient sent to the ER for further evaluation given altered mental status/confusion. Patient denies any complaints of chest pain, shortness breath, nausea, vomiting, abdominal pain. Patient knows the month, location, and is alert to herself. She does not appear to be confused on my examination. Nothing makes her symptoms worse, nothing makes her symptoms better on exam. Labs/Imaging reviewed Replaced potassium/magnesium CT head negative Discussed findings with patient/family at bedside No reason for admit at this time Discussed discharge and return precautions Dragon Disclaimer Dragon Disclaimer This electronic medical record was generated, in whole or in part, using a voice recognition dictation system. Departure Departure Impression: Primary Impression: Confusion Additional Impressions: Hypokalemia Hypomagnesemia Disposition: 01 HOME, SELF-CARE Condition: IMPROVED Referrals: BRANDON BAZZI MD (PCP) Patient Instructions: Confusion, Hypokalemia-Brief, Hypomagnesemia Additional Instructions: Recommend follow up with PCP 3 - 5 days No evidence of acute infection appreciated Labs including urine were normal, replaced electrolytes in the ER CT of head without acute findings Recommend discussing assisted living for future placement if continue to have concerns for taking care at home Problem Qualifiers LENNIE MARTIN MD Apr 05, 2019 19:02
[2019-04-05 19:04] LABS: BASO # 0.1 x10^3/uL (0.0-0.2); BASO % 1 % (0-3); EOS % 0 % (0-3); HEMATOCRIT 31.8 % (36.0-47.0); HEMOGLOBIN 9.9 g/dL (12.0-15.5); LYMPH # 2.3 x10^3/uL (1.0-4.8); LYMPH % 24 % (24-48); MEAN CORPUSCULAR HEMOGLOBIN 26 pg (25-35); MEAN CORPUSCULAR HGB CONC 31 g/dL (31-37); MEAN CORPUSCULAR VOLUME 81 fL (79-100); MONO # 0.7 x10^3/uL (0.0-1.1); MONO % 7 % (0-9); NEUT # 6.7 x10^3/uL (1.8-7.7); NEUT % 68 % (31-73); PLATELET COUNT 277 x10^3/uL (140-400)
[2019-04-05 19:18] LABS: CALCIUM 10.4 mg/dL (8.5-10.1); CREATININE 0.9 mg/dL (0.6-1.0); GFR 59.5; POTASSIUM 3.4 mmol/L (3.5-5.1)
[2019-04-05 19:22] LABS: ALBUMIN 3.2 g/dL (3.4-5.0); ALBUMIN/GLOBULIN RATIO 0.6 (1.0-1.7); MAGNESIUM 1.7 mg/dL (1.8-2.4); TOTAL BILIRUBIN 0.3 mg/dL (0.2-1.0); TOTAL PROTEIN 8.3 g/dL (6.4-8.2)
[2019-04-05 19:40] LABS: BILIRUBIN,URINE NEGATIVE (NEG); CLARITY,URINE CLEAR; COLOR,URINE YELLOW; NITRITE,URINE NEGATIVE (NEG); PH,URINE 5.5; PROTEIN,URINE NEGATIVE (NEG-TRACE); UROBILINOGEN,URINE 0.2 mg/dL (0.2 mg/dL)
--- NOTE | 2019-04-05 19:40 | RAD ---
CT scan of the head without contrast 04/05/2019 Clinical History: Altered mental status. Technique: Unenhanced, contiguous, 5 mm axial sections were obtained through the head. One or more of the following individualized dose reduction techniques were utilized for this study: 1. Automated exposure control. 2. Adjustment of the mA and/or kV according to patient size. 3. Use of iterative reconstruction technique. Findings: Comparison study is dated 02/06/2019. There is generalized parenchymal atrophy. Areas of decreased attenuation are seen within the periventricular and subcortical white matter of both cerebral hemispheres consistent with areas of small vessel ischemic disease. Areas of encephalomalacia are seen involving the right cerebellar hemisphere and left occipital lobe, unchanged. No acute parenchymal abnormality is seen. No extra-axial fluid collection is noted. No skull fracture is seen. Impression: No acute intracranial abnormality is seen. Electronically signed by: Jacinto Waters MD (04/05/2019 7:37 PM) [id number]
[2019-04-05 19:49] LABS: BACTERIA,URINE 0 /HPF (0-FEW); HYALINE CASTS, URINE MODERATE /HPF; RBC,URINE OCC /HPF (0-2); SQUAMOUS EPITHELIAL CELL,UR FEW /LPF
[2019-04-05] MEDS ORDERED: POTASSIUM CHLORIDE 20 MEQ TABLET.ER. PO ONE (21:00)
[2019-04-05] MEDS ORDERED: MAGNESIUM SULFATE 2GM 50 ML IV ONE (21:00)
[2019-04-05 22:31] VITALS: BP 172/86
--- NOTE | 2019-04-08 06:12 | EKG ---
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
== END 2019-04-05 22:45 | disposition home or self-care (01) ==
LOC: ER 18:30
DX: E83.42 Hypomagnesemia (principal); E87.6 Hypokalemia; R41.82 Altered mental status, unspecified; I48.91 Unspecified atrial fibrillation; M19.90 Unspecified osteoarthritis, unspecified site; E11.9 Type 2 diabetes mellitus without complications; I10 Essential (primary) hypertension; Z90.89 Acquired absence of other organs; Z90.710 Acquired absence of both cervix and uterus; Z98.890 Other specified postprocedural states; Z88.6 Allergy status to analgesic agent; Z88.5 Allergy status to narcotic agent; Z91.018 Allergy to other foods
CPT/HCPCS: 36415; 70450; 80053; 81001; 82140; 82962; 83735; 85025; 87086; 93005; 96365; 99285; J3475

== ENCOUNTER 2019-04-22 17:24 | Emergency (ER) | payer MEDICARE ==
[~2019-04-22] VITALS: Ht 162.6 cm; Wt 95.0 kg
[2019-04-22] MEDS ORDERED: FAMOTIDINE 20 MG/2 ML VIAL IVP ONE (18:00)
[2019-04-22] MEDS ORDERED: IV NORMAL SALINE 1000ML BAG 1,000 ML IV ONE (18:00)
[2019-04-22 18:11] LABS: FECAL OB PT POSITIVE (NEG)
[2019-04-22 18:28] LABS: BASO # 0.1 x10^3/uL (0.0-0.2); BASO % 1 % (0-3); EOS % 0 % (0-3); HEMATOCRIT 31.1 % (36.0-47.0); LYMPH # 1.3 x10^3/uL (1.0-4.8); LYMPH % 12 % (24-48); MEAN CORPUSCULAR HEMOGLOBIN 25 pg (25-35); MEAN CORPUSCULAR HGB CONC 32 g/dL (31-37); MEAN CORPUSCULAR VOLUME 78 fL (79-100); MONO # 0.7 x10^3/uL (0.0-1.1); MONO % 7 % (0-9); NEUT # 8.7 x10^3/uL (1.8-7.7); NEUT % 80 % (31-73); PLATELET COUNT 255 x10^3/uL (140-400); RED BLOOD COUNT 3.97 x10^6/uL (3.50-5.40); WHITE BLOOD COUNT 10.9 x10^3/uL (4.0-11.0)
[2019-04-22 18:37] LABS: CALCIUM 10.3 mg/dL (8.5-10.1); GFR 52.7
[2019-04-22 18:42] LABS: ALBUMIN 3.1 g/dL (3.4-5.0); ALBUMIN/GLOBULIN RATIO 0.7 (1.0-1.7); TOTAL BILIRUBIN 0.2 mg/dL (0.2-1.0); TOTAL PROTEIN 7.5 g/dL (6.4-8.2)
[2019-04-22 18:42] LABS: PROTHROMBIN TIME PATIENT 13.6 SEC (11.7-14.0)
[2019-04-22] MEDS ORDERED: CONTRAST GIVEN. MC PRN (18:45)
[2019-04-22] MEDS ORDERED: IOHEXOL 300 MG/ML 100ML VIAL. IV ONE (18:45)
--- NOTE | 2019-04-22 19:19 | RAD ---
Exam: CT abdomen and pelvis with contrast INDICATION: Rectal bleeding TECHNIQUE: Sequential axial images through the abdomen and pelvis obtained following the administration of 60 mL of Omni 300 IV contrast. Sagittal and coronal reformatted images were reconstructed from the axial data and reviewed. Comparisons: None FINDINGS: Heart size is normal. No pericardial effusion. Visualized lung bases are clear. No pleural effusion. Liver, spleen and, pancreas and adrenals are unremarkable. Gallstone is noted within the gallbladder. No adjacent inflammatory changes are identified. No perinephric stranding or hydronephrosis. No renal or ureteral calculi are identified. Bladder is distended and appears thin-walled. Uterus is absent. No abnormal adnexal mass. There is wall thickening at the rectum. Remainder of the large and small bowel are unremarkable. No free intra-abdominal air or fluid. No obstruction. Abdominal aorta has a normal course and caliber. Abdominal vasculature is patent. There are several prominent mildly enlarged left pelvic sidewall lymph nodes, for example series 2 image 68 measuring 1.4 cm in short axis. No suspicious osseous lesions or acute fractures. IMPRESSION: 1. Wall thickening at the rectum, nonspecific and could represent a focal colitis. Follow-up imaging posttreatment to exclude underlying neoplasm is recommended. 2. Several prominent and mildly enlarged left pelvic sidewall lymph nodes which are nonspecific and may be reactive. Correlate for history of malignancy. 3. Cholelithiasis Exposure: One or more of the following in the visualized dose reduction techniques were utilized for this examination: 1. Automated exposure control 2. Adjustment of the MA and/or KV according to patient size 3. Use of iterative of reconstructive technique Electronically signed by: Cal Finn MD (04/22/2019 7:16 PM) [id number]
--- NOTE | 2019-04-22 19:50 | PHYS DOC ---
Past Medical History Past Medical History: A-Fib, Arthritis, Diabetes-Type II, Hypertension, Stroke (LISA MAHER APRN) Past Surgical History: Appendectomy, Hysterectomy, Knee Replacement Additional Past Surgical Histo: bilat knees (LISA MAHER APRN) Smoking Status: Never Smoker Alcohol Use: None Drug Use: None (LISA MAHER APRN) Attending Signature I have participated in the care of this patient and I have reviewed and agree with all pertinent clinical information above including history, exam, and recommendations. (LENNIE MARTIN MD) Adult General Chief Complaint Chief Complaint: RECTAL BLEED HPI HPI Patient is a 83 year old female with history of A. fib, hypertension, CVA, the biggest 2, who presents to the ED today complaining of rectal bleeding that she noted this afternoon when she wiped herself. Patient denies any abdominal pain, nausea vomiting. Denies being on any blood thinners. Patient denies any diarrhea. (LISA MAHER APRN) Review of Systems Review of Systems Constitutional: Denies fever or chills [] Eyes: Denies change in visual acuity, redness, or eye pain [] HENT: Denies nasal congestion or sore throat [] Respiratory: Denies cough or shortness of breath [] Cardiovascular: No additional information not addressed in HPI [] GI: Reports rectal bleeding. Denies abdominal pain, nausea, vomiting, bloody stools or diarrhea [] : Denies dysuria or hematuria [] Musculoskeletal: Denies back pain or joint pain [] Integument: Denies rash or skin lesions [] Neurologic: Denies headache, focal weakness or sensory changes [] All other systems were reviewed and found to be within normal limits, except as documented in this note. (LISA MAHER APRN) Current Medications Current Medications Current Medications Medications (Trade) Dose Ordered Sig/Mignon Start Time Stop Time Status Last Admin Dose Admin Famotidine (Pepcid Vial) 20 mg 1X ONCE 04/22/19 18:00 04/22/19 18:01 DC 04/22/19 19:10 20 MG Info (CONTRAST GIVEN -- Rx MONITORING) 1 each PRN DAILY PRN 04/22/19 18:45 04/24/19 18:44 Iohexol (Omnipaque 300 Mg/ml) 60 ml 1X ONCE 04/22/19 18:45 04/22/19 18:46 DC Sodium Chloride 1,000 ml @ 1,000 mls/hr 1X ONCE 04/22/19 18:00 04/22/19 18:59 DC 04/22/19 19:10 1,000 MLS/HR (LENNIE MARTIN MD) Allergies Allergies Allergies Coded Allergies Type Severity Reaction Last Updated Verified morphine Allergy Intermediate 07/31/15 Yes pear Allergy Intermediate 06/03/15 Yes codeine Adverse Reaction Intermediate dizzy 06/01/15 Yes (LENNIE MARTIN MD) Physical Exam Physical Exam Constitutional: Well developed, well nourished, no acute distress, non-toxic appearance. [] HENT: Normocephalic, atraumatic, bilateral external ears normal, oropharynx moist, no oral exudates, nose normal. [] Eyes: PERRLA, EOMI, conjunctiva normal, no discharge. [] Neck: Normal range of motion, no tenderness, supple, no stridor. [] Cardiovascular:Heart rate regular rhythm, no murmur [] Lungs & Thorax: Bilateral breath sounds clear to auscultation [] Abdomen: Bowel sounds normal, soft, no tenderness, no masses, no pulsatile masses. [] Rectal exam-multiple nonthrombosed hemorrhoids noted in the exterior rectal region. Positive Hemoccult Skin: Warm, dry, no erythema, no rash. [] Back: No tenderness, no CVA tenderness. [] Extremities: No tenderness, no cyanosis, no clubbing, ROM intact, no edema. [] Neurologic: Alert and oriented X 3, normal motor function, normal sensory function, no focal deficits noted. [] Psychologic: Affect normal, judgement normal, mood normal. [] (LISA MAHER APRN) Current Patient Data Vital Signs Vital Signs Date Time Temp Pulse Resp B/P (MAP) Pulse Ox O2 Delivery O2 Flow Rate FiO2 04/22/19 17:24 98.5 73 16 209/85 (126) 96 Room Air 98.5 (LENNIE MARITN MD) Lab Values Laboratory Tests Test 04/22/19 17:41 04/22/19 18:12 Stool Occult Blood Positive (NEG) Sodium Level 137 mmol/L (136-145) Potassium Level 4.0 mmol/L (3.5-5.1) Chloride Level 101 mmol/L (98-107) Carbon Dioxide Level 28 mmol/L (21-32) Anion Gap 8 (6-14) Blood Urea Nitrogen 22 mg/dL (7-20) H Creatinine 1.0 mg/dL (0.6-1.0) Estimated GFR (Cockcroft-Gault) 52.7 BUN/Creatinine Ratio 22 (6-20) H Glucose Level 111 mg/dL (70-99) H Calcium Level 10.3 mg/dL (8.5-10.1) H Total Bilirubin 0.2 mg/dL (0.2-1.0) Aspartate Amino Transferase (AST) 16 U/L (15-37) Alanine Aminotransferase (ALT) 14 U/L (14-59) Alkaline Phosphatase 110 U/L (46-116) Total Protein 7.5 g/dL (6.4-8.2) Albumin 3.1 g/dL (3.4-5.0) L Albumin/Globulin Ratio 0.7 (1.0-1.7) L White Blood Count 10.9 x10^3/uL (4.0-11.0) Red Blood Count 3.97 x10^6/uL (3.50-5.40) Hemoglobin 10.0 g/dL (12.0-15.5) L Hematocrit 31.1 % (36.0-47.0) L Mean Corpuscular Volume 78 fL (79-100) L Mean Corpuscular Hemoglobin 25 pg (25-35) Mean Corpuscular Hemoglobin Concent 32 g/dL (31-37) Red Cell Distribution Width 16.0 % (11.5-14.5) H Platelet Count 255 x10^3/uL (140-400) Neutrophils (%) (Auto) 80 % (31-73) H Lymphocytes (%) (Auto) 12 % (24-48) L Monocytes (%) (Auto) 7 % (0-9) Eosinophils (%) (Auto) 0 % (0-3) Basophils (%) (Auto) 1 % (0-3) Neutrophils # (Auto) 8.7 x10^3/uL (1.8-7.7) H Lymphocytes # (Auto) 1.3 x10^3/uL (1.0-4.8) Monocytes # (Auto) 0.7 x10^3/uL (0.0-1.1) Eosinophils # (Auto) 0.0 x10^3/uL (0.0-0.7) Basophils # (Auto) 0.1 x10^3/uL (0.0-0.2) Prothrombin Time 13.6 SEC (11.7-14.0) Prothrombin Time INR 1.1 (0.8-1.1) Activated Partial Thromboplast Time 30 SEC (24-38) Laboratory Tests 04/22/19 18:12 Laboratory Tests 04/22/19 17:41 (LENNIE MARTIN MD) EKG EKG [] (LISA MAHER APRN) Radiology/Procedures Radiology/Procedures []PROCEDURE: CT ABD PELV W/ IV CONTRST ONLY Exam: CT abdomen and pelvis with contrast INDICATION: Rectal bleeding TECHNIQUE: Sequential axial images through the abdomen and pelvis obtained following the administration of 60 mL of Omni 300 IV contrast. Sagittal and coronal reformatted images were reconstructed from the axial data and reviewed. Comparisons: None FINDINGS: Heart size is normal. No pericardial effusion. Visualized lung bases are clear. No pleural effusion. Liver, spleen and, pancreas and adrenals are unremarkable. Gallstone is noted within the gallbladder. No adjacent inflammatory changes are identified. No perinephric stranding or hydronephrosis. No renal or ureteral calculi are identified. Bladder is distended and appears thin-walled. Uterus is absent. No abnormal adnexal mass. There is wall thickening at the rectum. Remainder of the large and small bowel are unremarkable. No free intra-abdominal air or fluid. No obstruction. Abdominal aorta has a normal course and caliber. Abdominal vasculature is patent. There are several prominent mildly enlarged left pelvic sidewall lymph nodes, for example series 2 image 68 measuring 1.4 cm in short axis. No suspicious osseous lesions or acute fractures. IMPRESSION: 1. Wall thickening at the rectum, nonspecific and could represent a focal colitis. Follow-up imaging posttreatment to exclude underlying neoplasm is recommended. 2. Several prominent and mildly enlarged left pelvic sidewall lymph nodes which are nonspecific and may be reactive. Correlate for history of malignancy. 3. Cholelithiasis Exposure: One or more of the following in the visualized dose reduction techniques were utilized for this examination: 1. Automated exposure control 2. Adjustment of the MA and/or KV according to patient size 3. Use of iterative of reconstructive technique Electronically signed by: Cal Jackson MD (04/22/2019 7:16 PM) [id number] DICTATED and SIGNED BY: CAL JACKSON MD DATE: 04/22/191915 (LIAS MAHER APRN) Course & Med Decision Making Course & Med Decision Making Pertinent Labs and Imaging studies reviewed. (See chart for details) This is a 83-year-old female patient presenting to the ED today complaining of rectal bleeding, symptoms began this afternoon. Patient noted for multiple nonthrombosed external hemorrhoids. Positive Hemoccult. CBC with normal WBC, hemoglobin 10.0, hematocrit 31.1 this is actually higher than the last time patient was in the ED roughly two weeks ago. CMP with no acute findings. Patient was given Pepcid and 1 L of IV fluid. CT of the abdomen and pelvic was noted for nonspecific rectal wall thickening could be colitis. Patient has no complaints of diarrhea. Also noted for cholelithiasis and reactive lymph nodes in her groin. Patient was discharged back to home. Follow-up with her own PCP in the next 1 week. (LISA MAHER APRN) Dragon Disclaimer Dragon Disclaimer This electronic medical record was generated, in whole or in part, using a voice recognition dictation system. (LISA MAHER APRN) Departure Departure Impression: Primary Impression: Hemorrhoids Additional Impression: Rectal bleeding Disposition: HOME, SELF-CARE Condition: STABLE Referrals: BRANDON BAZZI MD (PCP) follow up in the next 1 week Patient Instructions: Hemorrhoids, Rectal Bleeding, [id number] Additional Instructions: You were evaluated in the medicine for rectal bleeding and noted to have hemorrhoids. Use the medication prescribed as ordered. Follow-up with your own doctor in the course of this week or next week Your prescriptions were sent to your pharmacy. Scripts Hydrocortisone (ANUSOL-HC) 30 Gm Cream..g. 1 KAILA TP TID for 10 Days, #30 GM 0 Refills Prov: LISA MAHER APRN 04/22/19 Problem Qualifiers Primary Impression: Hemorrhoids Hemorrhoid type: unspecified Qualified Codes: K64.9 - Unspecified hemorrhoids LISA MAHER APRN Apr 22, 2019 19:50 LENNIE MARTIN MD Apr 22, 2019 20:09
[2019-04-22] MEDS ORDERED: HYDR30CR61 TP (19:52)
[2019-04-22 21:10] VITALS: BP 151/66
== END 2019-04-22 22:17 | disposition home or self-care (01) ==
LOC: ER 17:24
DX: K64.4 Residual hemorrhoidal skin tags (principal); I48.91 Unspecified atrial fibrillation; E11.9 Type 2 diabetes mellitus without complications; I10 Essential (primary) hypertension; Z86.73 Personal history of transient ischemic attack (TIA), and cerebral infarction without residual deficits; Z90.710 Acquired absence of both cervix and uterus; Z90.89 Acquired absence of other organs; Z88.5 Allergy status to narcotic agent; Z91.018 Allergy to other foods
CPT/HCPCS: 36415; 74177; 80053; 82274; 85025; 85610; 85730; 96374; 99285; J3490; J7030; 99284-25